=== PATIENT | male | born 1945 | race Caucasian/White ===

== ENCOUNTER 2018-11-24 15:10 | Observation (INO) | payer OTHER, BC ==
--- NOTE | 2018-11-24 15:53 | PDOC ---
History of Present Illness - General Chief Complaint: Pain Stated Complaint: BILATERAL KNEE PAIN Time Seen by Provider: 11/24/18 15:53 - History of Present Illness Initial Comments: 11/24/18 15:54 Mr. Phelps is a 72 yo male w/ pmh of HTN, IDDM, CHF (defibrillator placed ') , ischemic stroke '03, chronic LE cellulitis and swelling, who presents for evaluation of 3 week worsening of his chronic Left knee pain with additional weakness. Patient reports he is typically able to walk however today was unable to take his stairs at home; prompting his evaluation. The patient denies chest pain, shortness of breath, headache and dizziness. Denies fever, chills, nausea, vomit, diarrhea and constipation. Denies dysuria, frequency, urgency and hematuria. Past History - Past Medical History Allergies/Adverse Reactions: Allergies Allergy/AdvReac Type Severity Reaction Status Date / Time codeine [Codeine] Allergy Verified 04/01/15 12:36 Home Medications: Ambulatory Orders Amiodarone HCl [Cordarone -] 200 mg PO DAILY 04/01/15 Aspirin/Dipyridamole [Aggrenox -] 1 combo PO BID 04/01/15 Atorvastatin Ca [Lipitor -] 20 mg PO HS 04/01/15 Furosemide [Lasix -] 40 mg PO DAILY 04/01/15 Ranitidine HCl [Zantac] 150 mg PO DAILY 04/01/15 Tamsulosin HCl 0.4 mg PO DAILY 04/01/15 Ascorbic Acid [Vitamin C] 250 mg PO DAILY 05/18/16 Clopidogrel Bisulfate [Plavix -] 75 mg PO DAILY 05/18/16 Dutasteride [Avodart] 0.5 mg PO DAILY 05/18/16 Glipizide 5 mg PO BID 05/18/16 Insulin Glargine,Hum.rec.anlog [Lantus Solostar PEN (NF)] 0 units SQ BID Isosorbide Mononitrate [Imdur -] 90 mg PO DAILY 05/18/16 Losartan/Hydrochlorothiazide [Losartan-Hctz 100-25 mg Tab] 1 each PO DAILY 05/18 Metoprolol Tartrate 50 mg PO BID 05/18/16 Potassium Chloride 20 meq PO DAILY 05/18/16 Sitagliptin Phosphate [Januvia] 100 mg PO DAILY 05/18/16 Insulin Glargine,Hum.rec.anlog [Lantus] 0 unit SQ HS 11/24/18 Sodium Bicarbonate - 650 mg PO BID 11/24/18 Cancer: Yes (Skin Cancer 2004) Cardiac Disorders: Yes (Heart Failure, Defibrilator) CVA: Yes Diabetes: Yes HTN: Yes Hypercholesterolemia: Yes - Suicide/Smoking/Psychosocial Hx Smoking Status: No Smoking History: Never smoked Have you smoked in the past 12 months: No Number of Cigarettes Smoked Daily: 0 Information on smoking cessation initiated: No Hx Alcohol Use: No Drug/Substance Use Hx: No Substance Use Type: None Hx Substance Use Treatment: No Review of Systems - Review of Systems Comments:: 11/24/18 17:00 GENERAL/CONSTITUTIONAL: No fever or chills. No weakness. HEAD, EYES, EARS, NOSE AND THROAT: No change in vision. No ear pain or discharge. No sore throat. CARDIOVASCULAR: No chest pain or shortness of breath RESPIRATORY: No cough, wheezing, or hemoptysis. GASTROINTESTINAL: No nausea, vomiting, diarrhea or constipation. GENITOURINARY: No dysuria, frequency, or change in urination. MUSCULOSKELETAL: +Knee pain / weakness as described. SKIN: No rash NEUROLOGIC: No headache, vertigo, loss of consciousness, or change in strength/ sensation. ENDOCRINE: No increased thirst. No abnormal weight change HEMATOLOGIC/LYMPHATIC: No anemia, easy bleeding, or history of blood clots. ALLERGIC/IMMUNOLOGIC: No hives or skin allergy. *Physical Exam - Vital Signs Last Vital Signs Temp Pulse Resp BP Pulse Ox 97.7 F 64 20 177/65 H 97 11/24/18 15:15 11/24/18 15:15 11/24/18 15:15 11/24/18 15:15 11/24/18 15:15 - Physical Exam Comments: 11/24/18 17:01 GENERAL: +Patient obese. Awake, alert, and fully oriented, in no acute distress HEAD: No signs of trauma, normocephalic, atraumatic EYES: PERRLA, EOMI, sclera anicteric, conjunctiva clear ENT: Auricles normal inspection, hearing grossly normal, nares patent, oropharynx clear without exudates. Moist mucosa NECK: Normal ROM, supple, no lymphadenopathy, JVD, or masses LUNGS: No distress, speaks full sentences, clear to auscultation bilaterally HEART: Regular rate and rhythm, normal S1 and S2, no murmurs, rubs or gallops, peripheral pulses normal and equal bilaterally. ABDOMEN: Soft, nontender, normoactive bowel sounds. No guarding, no rebound. No masses EXTREMITIES: +2+ Pedal edema TRISH. Chronic cellulitis noted to LLE as well. Normal range of motion, no edema. No clubbing or cyanosis. NEUROLOGICAL: +Patient gait significant for limping 2/2 pain. Cranial nerves II through XII grossly intact. Normal speech, no focal sensorimotor deficits SKIN: Warm, Dry, normal turgor, no rashes or lesions noted. Moderate Sedation - Procedure Monitoring Vital Signs: Procedure Monitoring Vital Signs Temperature 97.7 F 11/24/18 15:15 Pulse Rate 64 11/24/18 15:15 Respiratory Rate 20 11/24/18 15:15 Blood Pressure 177/65 H 11/24/18 15:15 O2 Sat by Pulse Oximetry (%) 97 11/24/18 15:15 ED Treatment Course - LABORATORY CBC & Chemistry Diagram: 11/24/18 16:43 11/24/18 16:43 Medical Decision Making - Medical Decision Making 11/24/18 18:18 Mr. Phelps is a 72 yo male w/ pmh as described who presents for evaluation of worsening weakness / chronic leg pain. Patient evaluated with TRISH knee XR and labs as below (grossly wnl). Patient especially concerned as he is typically unable to ambulate and will not be able to walk up the stairs to get into his house at this time. Patient will likely be admitted for inability to ambulate / ortho consult. 11/24/18 19:09 Patient pending admission. Signed out to Dr. Camacho for further evaluation. Laboratory Results - last 24 hr 11/24/18 11/24/18 16:43 16:43 WBC 11.2 H RBC 5.57 Hgb 15.7 Hct 46.5 MCV 83.5 MCH 28.2 MCHC 33.7 RDW 15.1 Plt Count 216 D MPV 8.3 Absolute Neuts (auto) 7.9 Neutrophils % 70.1 Lymphocytes % 17.5 D Monocytes % 8.9 Eosinophils % 2.9 Basophils % 0.6 Nucleated RBC % 0 Sodium 139 Potassium 3.8 Chloride 101 Carbon Dioxide 33 H Anion Gap 5 L BUN 22 H Creatinine 1.4 H Creat Clearance w eGFR 49.96 Random Glucose 73 L Calcium 9.5 Total Bilirubin 0.6 AST 17 ALT 26 Alkaline Phosphatase 108 Total Protein 7.3 Albumin 3.8 *DC/Admit/Observation/Transfer Diagnosis at time of Disposition: Unable to ambulate - Referrals Referrals: Marlo Leos MD [Primary Care Provider] - - Patient Instructions - Post Discharge Activity
--- NOTE | 2018-11-24 15:57 | PDOC ---
Attending Attestation - Resident Resident Name: Kali Conroy - ED Attending Attestation I have performed the following: I have examined & evaluated the patient, The case was reviewed & discussed with the resident, I agree w/resident's findings & plan, Exceptions are as noted <BabarRekha - Last Filed: 11/24/18 15:57> - HPI HPI: 11/24/18 17:18 The patient is a 72 year old male with a significant past medical history of HTN , IDDM, CHF, defibrillator place 2010, CVA 2002, who presents to the emergency department today complaining of chronic bilateral knee pain. The patient states he has had lower extremity pain for the last 5 years and reports that hes experienced about four episodes in the last week where his legs gave out from under him. He explains his right leg pain is worse, but that the left is more swollen, and also notes some lower back pain. The patient denies chest pain, shortness of breath, headache and dizziness. Denies fever, chills, nausea, vomit, diarrhea and constipation. Denies dysuria, frequency, urgency and hematuria. Allergies: NKA Social history: None reported PCP: Dr. Coffey Neurologist: Dr. Cardenas - Physicial Exam PE: 11/24/18 17:11 GENERAL: The patient is in no acute distress. HEAD: Normal with no signs of trauma. EYES: PERRLA, EOMI, sclera anicteric, conjunctiva clear. ENT: Ears normal, nares patent, oropharynx clear without exudates. Moist mucous membranes. NECK: Normal range of motion, supple without lymphadenopathy, JVD, or masses. LUNGS: Breath sounds equal, clear to auscultation bilaterally. No wheezes, and no crackles. HEART:Regular rate and rhythm, normal S1 and S2 without murmur, rub or gallop. ABDOMEN: Soft, nontender, normoactive bowel sounds. No guarding, no rebound. No masses palpable. EXTREMITIES: (+) 4/5 hip flexion, knee extension. Sensation intact. NEUROLOGICAL: Cranial nerves II through XII grossly intact. Normal speech. No focal neurological deficits. MUSCULOSKELETAL: Back non-tender to palpation, no CVA tenderness SKIN: Warm, Dry, normal turgor, no rashes or lesions noted. <Dimple Khan - Last Filed: 11/24/18 17:18> Attestations - Attestations 11/24/18 17:18 Documentation prepared by Dimple Khan, acting as behavioral medical director for Rekha Eckert MD. <Dimple Khan - Last Filed: 11/24/18 17:18>
[2018-11-24 17:10] LABS: BASO % 0.6 % (0-2.0); EOS % 2.9 % (0-4.5); HEMATOCRIT 46.5 % (35.4-49); HEMOGLOBIN 15.7 GM/dL (11.7-16.9); LYMPH % 17.5 % (8-40); MCH 28.2 pg (25.7-33.7); MCHC 33.7 g/dl (32.0-35.9); MEAN CELL VOLUME 83.5 fl (80-96); MEAN PLT VOLUME 8.3 fl (7.5-11.1); MONO % 8.9 % (3.8-10.2); NEUT % 70.1 % (42.8-82.8); PLATELET COUNT 216 K/MM3 (134-434); RBC 5.57 M/mm3 (4.00-5.60); RDW 15.1 % (11.9-15.9); WHITE BLOOD COUNT 11.2 K/mm3 (4.0-10.0)
[2018-11-24 17:42] LABS: ALBUMIN 3.8 g/dl (3.4-5.0); ALK PHOS 108 U/L (45-117); ANION GAP 5 MMOL/L (8-16); BILIRUBIN,TOTAL 0.6 mg/dL (0.2-1); BLOOD UREA NITROGEN 22 mg/dL (7-18); CALCIUM 9.5 mg/dL (8.5-10.1); CHLORIDE 101 mmol/L (98-107); CO2 33 mmol/L (21-32); CREATININE 1.4 mg/dL (0.55-1.3); GLUCOSE,RANDOM 73 mg/dL (74-106); POTASSIUM 3.8 mmol/L (3.5-5.1); SGOT/AST 17 U/L (15-37); SGPT/ALT 26 U/L (13-61); SODIUM 139 mmol/L (136-145); TOT PROT 7.3 g/dl (6.4-8.2)
--- NOTE | 2018-11-24 20:58 | PDOC ---
*Physical Exam - Vital Signs Last Vital Signs Temp Pulse Resp BP Pulse Ox 97.7 F 64 20 177/65 H 97 11/24/18 15:15 11/24/18 15:15 11/24/18 15:15 11/24/18 15:15 11/24/18 15:15 ED Treatment Course - LABORATORY CBC & Chemistry Diagram: 11/24/18 16:43 11/24/18 16:43 - ADDITIONAL ORDERS Additional order review: Laboratory Results 11/24/18 16:43 Sodium 139 Potassium 3.8 Chloride 101 Carbon Dioxide 33 H Anion Gap 5 L BUN 22 H Creatinine 1.4 H Creat Clearance w eGFR 49.96 Random Glucose 73 L Calcium 9.5 Total Bilirubin 0.6 AST 17 ALT 26 Alkaline Phosphatase 108 Total Protein 7.3 Albumin 3.8 11/24/18 16:43 RBC 5.57 MCV 83.5 MCHC 33.7 RDW 15.1 MPV 8.3 Neutrophils % 70.1 Lymphocytes % 17.5 D Monocytes % 8.9 Eosinophils % 2.9 Basophils % 0.6 Medical Decision Making - Medical Decision Making 11/24/18 20:[address] Méndez for admission. *DC/Admit/Observation/Transfer Diagnosis at time of Disposition: Unable to ambulate - Discharge Dispostion Condition at time of disposition: Guarded Decision to Admit order: Yes - Referrals Referrals: Marlo Leos MD [Primary Care Provider] - - Patient Instructions - Post Discharge Activity
--- NOTE | 2018-11-24 22:03 | PN ---
Teaching Attending Note Name of Resident: Chiara Osborne ATTENDING PHYSICIAN STATEMENT I saw and evaluated the patient. I reviewed the resident's note and discussed the case with the resident. I agree with the resident's findings and plan as documented. SUBJECTIVE: Seen and examined; please see the resident note for further historical details. He has knee pain and has had stated mechanical falls at home for several weeks He had questionable syncope at home; he was sitting on his bed and fell backwards and was noted to be sweaty and lightheaded when it happened. He has Knee pain as well which is chronic. Seen by CV here in the past with Dr. Dhaliwal. 10 sys ROS done and negative aside from HPI PMH (HTN, DM, CHF with unknown EF s/p AICD 2010, CVA 2002) Medication list pending reconciliation (glipizide, lantus, lasix, januvia, losartan/HZTZ 5/12.5, Plavix 75, Metoprolol tartrate 50 BID, Amio 200, Isosorbide mononitrate, atorvastatin, aspirin, dypyridamole, tamsulosin, sodium bicarb, ranitidine) OBJECTIVE: VS, labs, imaging reviewed. Orthostatic VS neg NAD, AAO, resting comfortably in bed Chronic venous stasis changes LE, palpable pulses RRR s1/2 no mgr Lungs CTAB, w/ sym exp NT ND +BS CN2-12 wnl, no fnd ASSESSMENT AND PLAN: Presents with frequent falls, syncope 1) Syncope -Observation, telemetry, interrogating pacemaker and consulting cardiology. He appears to have had a similar episode 2013 which he was seen here by Dr. Dhaliwal -CT head reviewed; checking carotid dopplers and echo -Noted prior hx of neurocardiogenic syncope -OS VS negative per resident assessment -Fall precautions, PT 2) Knee Pain -PT consult, followup XR, PRN APAP, orhto consult 3) Hx Sustained VT s/p ICD for 2/2 prevention -Continue home amio, interrogating pacer 4) Hx Ischemic stroke -Doesn't appear to be an acute issue; no fnd. Continue home meds and monitor. 5) LE Venous Stasis changes -Check Arterial and Venous Duplex 6) Mild JHONY vs CKD -If Cr improved can restart lasix in the PM and watch. The last Cr was 2015 and given his history it would be likely his renal function somewhat worsened in the past 3 years. 7) Hx CHF (LV diastolic dysfunction documented) -Resume lasix in PM 8) DM -Home basal and SSI when inpt, hold PO meds 9) Obesity -Plastics Technician prior to DC; OP ANIBAL eval recommended.
[2018-11-24] MEDS ORDERED: LACTATED RINGERS SOLUTION 1,000 ML IV SCH (22:30)
--- NOTE | 2018-11-24 22:37 | HP ---
CHIEF COMPLAINT: frequent falls, knee pain PCP: Dr. Leos HISTORY OF PRESENT ILLNESS: 72 y/o M with PMH HTN, IDDM, CHF, hx sustained VT with ICD, [employer] 2010), ischemic stroke (2002), chronic LE cellulitis and edema, neurocardiogenic syncope, who presents to the ED c/o b/l lower extremity weakness and frequent falls over the last 3 weeks. As per pt, he suffered an ischemic stroke in 2002. Afterward, he completed PT, however cont'd to have weakness in his lower extremities, more specifically his knees. More recently, for the past three weeks he has had multiple episodes of syncope and falls (5x) . States that the last episode was yesterday AM, when he was sitting on the edge of the bed, he migue to stand and fell backwards back onto the bed. Denies LOC or head trauma. Prior to the episode, he endorses diaphoresis and lightheadedness. No chest pain or pressure, or visual changes. Has had four other episodes during this time, which have mostly been "mechanical" as per pt, where he feels as if his knees will "buckle out from under him." Denies HOOD, fever, chills, SOB, chest pain or pressure, or changes in urinary or bowel function. Of note, pt has seen Dr. Dhaliwal in past and was dx with likely neurocardiogenic syncope (2013). Pt lives at home with family and has had increased need for a wheelchair due to these recent episodes. ER course was notable for: (1) (2) (3) Recent Travel: denies PAST MEDICAL HISTORY: as above PAST SURGICAL HISTORY: "melanoma surgery" - on back. [facility] Social History: retired; used to work for [employer] for [employer] Smoking: denies Alcohol: denies Drugs: denies Family History: mother- cervical CA, father - "other type of CA" Allergies codeine [Codeine] Allergy (Verified 04/01/15 12:36) - couldn't remember medication at time HOME MEDICATIONS: Home Medications Medication Instructions Recorded Amiodarone HCl [Cordarone -] 200 mg PO DAILY 04/01/15 Aspirin/Dipyridamole [Aggrenox -] 1 combo PO BID 04/01/15 Atorvastatin Ca [Lipitor -] 20 mg PO HS 04/01/15 Furosemide [Lasix -] 40 mg PO DAILY 04/01/15 Ranitidine HCl [Zantac] 150 mg PO DAILY 04/01/15 Tamsulosin HCl 0.4 mg PO DAILY 04/01/15 Ascorbic Acid [Vitamin C] 250 mg PO DAILY 05/18/16 Clopidogrel Bisulfate [Plavix -] 75 mg PO DAILY 05/18/16 Dutasteride [Avodart] 0.5 mg PO DAILY 05/18/16 Glipizide 5 mg PO BID 05/18/16 Insulin Glargine,Hum.rec.anlog 0 units SQ BID 05/18/16 [Lantus Solostar PEN (NF)] Isosorbide Mononitrate [Imdur -] 90 mg PO DAILY 05/18/16 Metoprolol Tartrate 50 mg PO BID 05/18/16 Potassium Chloride 20 meq PO DAILY 05/18/16 Sitagliptin Phosphate [Januvia] 100 mg PO DAILY 05/18/16 Insulin Glargine,Hum.rec.anlog 0 unit SQ HS 11/24/18 [Lantus] Losartan 50Mg/Hctz 12.5MG [Hyzaar 1 tab PO DAILY 11/24/18 -] Sodium Bicarbonate - 650 mg PO BID 11/24/18 REVIEW OF SYSTEMS CONSTITUTIONAL: +weakness Absent: fever, chills, diaphoresis, generalized weakness, malaise, loss of appetite, weight change HEENT: Absent: rhinorrhea, nasal congestion, throat pain, throat swelling, difficulty swallowing, mouth swelling, ear pain, eye pain, visual changes CARDIOVASCULAR: Absent: chest pain, syncope, palpitations, irregular heart rate, lightheadedness , peripheral edema RESPIRATORY: Absent: cough, shortness of breath, dyspnea with exertion, orthopnea, wheezing, stridor, hemoptysis GASTROINTESTINAL: Absent: abdominal pain, abdominal distension, nausea, vomiting, diarrhea, constipation, melena, hematochezia GENITOURINARY: Absent: dysuria, frequency, urgency, hesitancy, hematuria, flank pain, genital pain MUSCULOSKELETAL: +knee pain Absent: myalgia, arthralgia, joint swelling, back pain, neck pain SKIN: Absent: rash, itching, pallor HEMATOLOGIC/IMMUNOLOGIC: Absent: easy bleeding, easy bruising, lymphadenopathy, frequent infections ENDOCRINE: Absent: unexplained weight gain, unexplained weight loss, heat intolerance, cold intolerance NEUROLOGIC: Absent: headache, focal weakness or paresthesias, dizziness, unsteady gait, seizure, mental status changes, bladder or bowel incontinence PSYCHIATRIC: Absent: anxiety, depression, suicidal or homicidal ideation, hallucinations. PHYSICAL EXAMINATION Vital Signs - 24 hr 11/24/18 15:15 Temperature 97.7 F Pulse Rate 64 Respiratory 20 Rate Blood Pressure 177/65 H O2 Sat by Pulse 97 Oximetry (%) GENERAL: Pleasant. sitting in wheelchair. Awake, alert, and fully oriented, in no acute distress. HEAD: Normal with no signs of trauma. EYES: Pupils equal, round and reactive to light, extraocular movements intact, sclera anicteric, conjunctiva clear. EARS, NOSE, THROAT: Ears normal, nares patent, oropharynx clear without exudates. Moist mucous membranes. NECK: Normal range of motion, supple without lymphadenopathy LUNGS: Breath sounds equal, clear to auscultation bilaterally. No wheezes, and no crackles. No accessory muscle use. HEART: Regular rate and rhythm, normal S1 and S2 without murmur, rub or gallop. ABDOMEN: Soft, obese, nontender, not distended, normoactive bowel sounds MUSCULOSKELETAL: 3/5 motor strength knee extension. unable to partake in hip flexion. 5/5 MS in UE. sensation intact. LOWER EXTREMITIES: 2+ pt pulses. +chronic ulcerative changes over shins. NEUROLOGICAL: Cranial nerves II-XII intact. difficulty with ambulation. can only stand for 1-2 minutes d/t knee pain. PSYCHIATRIC: Cooperative. Good eye contact. SKIN: Warm, dry, normal turgor Laboratory Results - last 24 hr 11/24/18 11/24/18 16:43 16:43 WBC 11.2 H RBC 5.57 Hgb 15.7 Hct 46.5 MCV 83.5 MCH 28.2 MCHC 33.7 RDW 15.1 Plt Count 216 D MPV 8.3 Absolute Neuts (auto) 7.9 Neutrophils % 70.1 Lymphocytes % 17.5 D Monocytes % 8.9 Eosinophils % 2.9 Basophils % 0.6 Nucleated RBC % 0 Sodium 139 Potassium 3.8 Chloride 101 Carbon Dioxide 33 H Anion Gap 5 L BUN 22 H Creatinine 1.4 H Creat Clearance w eGFR 49.96 Random Glucose 73 L Calcium 9.5 Total Bilirubin 0.6 AST 17 ALT 26 Alkaline Phosphatase 108 Total Protein 7.3 Albumin 3.8 Knee XR: results pending spine lumbosacral imaging: pending EKG: sinus with PVC's. rate 74bpm, [place] 204ms. Qtc 501ms orthostatics: (-) ASSESSMENT/PLAN: 72 y/o M with PMH HTN, IDDM, CHF, hx sustained VT with ICD, [employer] 2010), ischemic stroke (2002), chronic LE cellulitis and edema, neurocardiogenic syncope, who presents to the ED c/o b/l lower extremity weakness and frequent falls over the last 3 weeks. #Possible neurocardiogenic syncope -similar to episode in 2014, has been seen by cardiology - neurocardiogenic syncope -will need ICD interrogation, [employer] to check for any new events -will also need med reconciliation to determine whether polypharmacy exacerbating sx -f/u ECHO, carotid duplex -orthostatics (-) #chronic LE, L knee weakness -with joint space narrowing on imaging, without dislocation or fx - my read. await official read (knee XR) -f/u spine imaging -PT -Ortho consult: Dr. Del Valle #LE edema, r/o DVT -has chronically however f/u b/l duplex #leukocytosis -likely reactive 2/2 falls. no acute infiltrates on CXR or symptoms -however f/u official read. no other likely sources infection #?CAD, hx sustained VT, ICD -needs ICD interrogation -c/w aggrenox, plavix. unclear why pt is on plavix as no verbalized hx of [place] or stent -c/w imdur, statin #hx ischemic stroke (2002) -c/w lipitor #JHONY -can give gentle IVF (42 cc/hr) if needed -will hold for now as pt with CHF though not in exac. reassess in AM #HTN- uncontrolled -likely 2/2 pain -c/w metoprolol tartate, losartan-HCTZ -may need to be adjusted 2/2 polypharmacy #IDDM -cont ISS, BGM, ACHS -on lantus 65mg qHS, however last BG 73 so will hold for now. can restart tomorrow #CHF -c/w lasix 40mg BID. note also on losartan-HCTZ -currently not in exacerbation -strict i/o, daily weights, Na 2g controlled -c/w KCl replenishment #F/E/N no IVF continue to follow lytes sodium controlled, diabetic diet #PPX on aggrenox, SCD's #Dispo med surg obs Visit type - Emergency Visit Emergency Visit: Yes ED Registration Date: 11/24/18 Care time: The patient presented to the Emergency Department on the above date and was hospitalized for further evaluation of their emergent condition. - New Patient This patient is new to me today: Yes Date on this admission: 11/25/18 - Critical Care Critical Care patient: No
[2018-11-25] MEDS ORDERED: METOPROLOL TARTRATE 50 MG TABLET (FP) ONE (00:44)
[2018-11-25] MEDS: METOPROLOL TARTRATE 50 MG TABLET (FP) PO SCH ×3 (00:45→21:38)
[2018-11-25 03:46] VITALS: BMI 42.2
[2018-11-25] MEDS ORDERED: INSULIN (NOVOLOG) ASPART 100 UNITS/ML 10ML VIAL ONE (06:02)
[2018-11-25] MEDS: INSULIN SLIDING SCALE (NOVOLOG) 1 VIAL SQ SCH ×4 (06:16→21:38)
[2018-11-25 07:38] LABS: EOS % 3.1 % (0-4.5); HEMATOCRIT 40.5 % (35.4-49); HEMOGLOBIN 13.7 GM/dL (11.7-16.9); LYMPH % 20.5 % (8-40); MCHC 33.9 g/dl (32.0-35.9); MEAN CELL VOLUME 82.8 fl (80-96); MEAN PLT VOLUME 8.6 fl (7.5-11.1); MONO % 10.4 % (3.8-10.2); PLATELET COUNT 193 K/MM3 (134-434); WHITE BLOOD COUNT 7.8 K/mm3 (4.0-10.0)
[2018-11-25 07:58] LABS: INR 1.23 (0.83-1.09); PROTHROMBIN TIME (PATIENT) 14.5 SEC (9.7-13.0)
[2018-11-25] MEDS: TAMSULOSIN HCL 0.4 MG CAP PO SCH (08:05)
[2018-11-25 08:11] LABS: ANION GAP 6 MMOL/L (8-16); BLOOD UREA NITROGEN 21 mg/dL (7-18); CALCIUM 8.6 mg/dL (8.5-10.1); CHLORIDE 105 mmol/L (98-107); CO2 28 mmol/L (21-32); CREATININE 1.2 mg/dL (0.55-1.3); GLUCOSE,RANDOM 95 mg/dL (74-106); MAGNESIUM 2.2 mg/dL (1.8-2.4); PHOSPHOROUS 3.6 mg/dL (2.5-4.9); POTASSIUM 3.6 mmol/L (3.5-5.1); SODIUM 139 mmol/L (136-145)
--- NOTE | 2018-11-25 08:54 | PN ---
Progress Note (short form) - Note Progress Note: 72 y/o obese male with history of HTN, IDDM, CHF, ischemic stroke (2002), chronic LE cellulitis and edema, neurocardiogenic syncope here for b/l lower extremity weakness and frequent falls over the last 3 weeks, both vasovagal and mechanical. He notes several episodes of b/l knees "giving out" for 5+ years, becoming more frequent over the past 2 years. Denies any tauma or injury prior to onset of his symptoms. He notes constant diffuse knee pain throughout the day. As per patient, he was last evaluated for his knee pain 10 years ago. Last Vital Signs Temp Pulse Resp BP Pulse Ox 98.2 F 63 20 155/69 98 11/25/18 03:33 11/25/18 03:33 11/25/18 03:33 11/25/18 03:33 11/25/18 03:33 PE: B/L LE B/L chronic cellulitic changes No deformity Tender medial more than lateral joint lines ROM 10-100 4/5 strength B/L LE 5/5 strength B/L UE Nuerovascularly intact Cap refill intact Abnormal Lab Results 11/24/18 11/24/18 11/25/18 16:43 16:43 06:00 WBC 11.2 H Monocytes % 10.4 H PT with INR INR Carbon Dioxide 33 H Anion Gap 5 L BUN 22 H Creatinine 1.4 H Random Glucose 73 L 11/25/18 11/25/18 06:00 06:00 WBC Monocytes % PT with INR 14.50 H INR 1.23 H Carbon Dioxide Anion Gap 6 L BUN 21 H Creatinine Random Glucose A: B/L knee pain P: XR images show severe degenerative changes of R knee and moderate to severe of L knee Patient's symptoms and XR are most consistent with B/L 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
[2018-11-25] MEDS: SODIUM BICARBONATE 650 MG TABLET PO SCH ×2 (09:44→21:38)
[2018-11-25] MEDS: RANITIDINE HCL 150 MG TABLET (FP) PO SCH (09:44)
[2018-11-25] MEDS: ASPIRIN/DIPYRIDAMOLE 25 MG/200 MG CAPSULE (FP) PO SCH ×2 (09:44→22:54)
[2018-11-25] MEDS: CLOPIDOGREL BISULFATE 75 MG TABLET (FP) PO SCH (09:44)
[2018-11-25] MEDS: ISOSORBIDE MONONITRATE 30 MG TAB.SR.24H (FP) PO SCH (09:45)
[2018-11-25] MEDS: DUTASTERIDE 0.5 MG CAP (FP) PO SCH (09:45)
[2018-11-25] MEDS: AMIODARONE HCL 200 MG TABLET (FP) PO SCH (09:45)
[2018-11-25] MEDS: LOSARTAN 50MG/HCTZ 12.5MG 1 TAB (FP) PO SCH (09:45)
[2018-11-25] MEDS: POTASSIUM CHLORIDE TABS 10 MEQ TABLET.ER (FP) PO SCH (09:45)
[2018-11-25] MEDS ORDERED: FUROSEMIDE 40 MG TABLET (FP) PO SCH ×2 (10:00)
[2018-11-25] MEDS ORDERED: PATIENT'S OWN MEDICATION (NON-FORMULARY) (Losartan/Hydrochlorothiazide [Losartan-Hctz 100- PO SCH (10:00)
--- NOTE | 2018-11-25 11:03 | PN ---
Progress Note, Physician Chief Complaint: Pt sitting in chair in no acute distress. Reports feeling well today. He reports episodes at home where he would sit on the side of the bed and fall back when standing as his legs gave out. yesterday, he felt dizzy and diaphoretic. Denies any chest pain, sob, n/v/d - Current Medication List Current Medications: Active Medications Amiodarone HCl (Cordarone -) 200 mg PO DAILY [facility] Last Admin: 11/25/18 09:45 Dose: 200 mg Atorvastatin Calcium (Lipitor -) 20 mg PO [facility] Clopidogrel Bisulfate (Plavix -) 75 mg PO DAILY [facility] Last Admin: 11/25/18 09:44 Dose: 75 mg Dipyridamole/Aspirin (Aggrenox -) 1 combo PO BID [facility] Last Admin: 11/25/18 09:44 Dose: 1 combo Dutasteride (Avodart -) 0.5 mg PO DAILY [facility] Last Admin: 11/25/18 09:45 Dose: 0.5 mg Furosemide (Lasix -) 40 mg PO BID [facility] Last Admin: 11/25/18 09:44 Dose: 40 mg HCTZ/Losartan Potassium (Hyzaar -) 1 tab PO DAILY [facility] Last Admin: 11/25/18 09:45 Dose: 1 tab Insulin Aspart (Novolog Vial Sliding Scale -) 1 vial SQ [facility]; Protocol Last Admin: 11/25/18 06:16 Dose: Not Given Isosorbide Mononitrate (Imdur -) 90 mg PO DAILY [facility] Last Admin: 11/25/18 09:45 Dose: 90 mg Metoprolol Tartrate (Lopressor -) 50 mg PO BID [facility] Last Admin: 11/25/18 09:45 Dose: 50 mg Potassium Chloride (K-Dur -) 20 meq PO DAILY [facility] Last Admin: 11/25/18 09:45 Dose: 20 meq Ranitidine HCl (Zantac -) 150 mg PO DAILY [facility] Last Admin: 11/25/18 09:44 Dose: 150 mg Sodium Bicarbonate (Sodium Bicarbonate -) 650 mg PO BID [facility] Last Admin: 11/25/18 09:44 Dose: 650 mg Tamsulosin HCl (Flomax -) 0.4 mg PO DAILY@0830 [facility] Last Admin: 11/25/18 08:05 Dose: 0.4 mg - Objective Vital Signs: Vital Signs Temperature 98.2 F 11/25/18 03:33 Pulse Rate 63 11/25/18 03:33 Respiratory Rate 20 11/25/18 03:33 Blood Pressure 155/69 11/25/18 03:33 O2 Sat by Pulse Oximetry (%) 98 11/25/18 03:33 Constitutional: Yes: Well Nourished, No Distress, Calm, Obese Cardiovascular: Yes: Regular Rate and Rhythm Respiratory: Yes: WNL, Regular, CTA Bilaterally. No: Accessory Muscle Use, SOB , Tachypnea, Wheezes Gastrointestinal: Yes: WNL, Normal Bowel Sounds, Soft, Abdomen, Obese. No: Distention, Tenderness Genitourinary: Yes: WNL Edema: Yes Edema: LLE: Trace, RLE: Trace Integumentary: Yes: Venous Stasis Changes Neurological: Yes: WNL, Alert, Oriented Psychiatric: Yes: WNL, Alert, Oriented Labs: CBC, BMP 11/25/18 06:00 11/25/18 06:00 INR, PTT INR 1.23 (0.83-1.09) H 11/25/18 06:00 Problem List - Problems (1) Fall Assessment/Plan: suspect 2/2 gait instability, severe oa of b/l knees all imaging w/out acute fx b/l duplex neg for DVT evaluated by ortho- recommend outpt follow up PT eval- ambulated 30ft, may benefit from RW Code(s): W19.XXXA - UNSPECIFIED FALL, INITIAL ENCOUNTER Qualifiers: Encounter type: initial encounter Qualified Code(s): W19.XXXA - Unspecified fall, initial encounter (2) Pre-syncope Assessment/Plan: multifactorial suspect this is possibly from his gait instability/knee oa possible vasovagal, cr was elevated at admission- lasix stopped per cardiology does not suspect neuro/cardiac etiology echo/icd interrogation pending cardiology following Code(s): R55 - SYNCOPE AND COLLAPSE (3) CAD (coronary artery disease) Assessment/Plan: no acute ACS cardiology following Code(s): I25.10 - ATHSCL HEART DISEASE OF [place] CORONARY ARTERY W/O ANG PCTRS Qualifiers: [place] vs. transplanted heart: [place] heart Associated angina: without angina (4) HTN (hypertension) Assessment/Plan: controlled continue home meds Code(s): I10 - ESSENTIAL (PRIMARY) HYPERTENSION Qualifiers: Hypertension type: essential hypertension Qualified Code(s): I10 - Essential (primary) hypertension (5) HLD (hyperlipidemia) Assessment/Plan: stable continue statin Code(s): E78.5 - HYPERLIPIDEMIA, UNSPECIFIED Qualifiers: Hyperlipidemia type: pure hypercholesterolemia Qualified Code(s): E78.00 - Pure hypercholesterolemia, unspecified; E78.0 - Pure hypercholesterolemia (6) Diabetes Assessment/Plan: controlled bgm, sliding scale lantus on hold diabetic diet Code(s): E11.9 - TYPE 2 DIABETES MELLITUS WITHOUT COMPLICATIONS Qualifiers: Diabetes mellitus type: type 2 Diabetes mellitus superintendent container terminal insulin use: with superintendent container terminal use Diabetes mellitus complication status: without complication Qualified Code(s): E11.9 - Type 2 diabetes mellitus without complications; Z79.4 - truck terminal manager (current) use of insulin (7) Stasis dermatitis of both legs Assessment/Plan: chronic acewrap lasix d/c'd per cardiology Code(s): I87.2 - VENOUS INSUFFICIENCY (CHRONIC) (PERIPHERAL) (8) History of CVA (cerebrovascular accident) Assessment/Plan: chronic , 2002 Code(s): Z86.73 - PRSNL HX OF TIA (TIA), AND CEREB INFRC W/O RESID DEFICITS Assessment/Plan Dispo: home w/ VNS. pending echo, icd interrogation
--- NOTE | 2018-11-25 11:06 | CON.CARD ---
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 As per pt, he suffered an ischemic stroke in 2002. Afterward, he completed PT, however cont'd to have weakness in his lower extremities, more specifically his knees. More recently, for the past three weeks he has had multiple episodes of syncope and falls (5x). States that the last episode was yesterday AM, when he was sitting on the edge of the bed, he migue to stand and fell backwards back onto the bed. Denies LOC or head trauma. Prior to the episode, he endorses diaphoresis, flushing and lightheadedness. No chest pain or pressure, palpitations or visual changes. Has had four other episodes during this time, which have mostly been "mechanical" as per pt, where he feels as if his knees will "buckle out from under him." Denies HOOD, fever, chills, SOB, chest pain or pressure, or changes in urinary or bowel function. Last seen in office 06/03/2018. - History Source History Provided By: Patient Limitations to Obtaining History: No Limitations - Alcohol/Substance Use Hx Alcohol Use: No - Smoking History Smoking history: Never smoked Have you smoked in the past 12 months: No Aproximately how many cigarettes per day: 0 Home Medications - Allergies Allergies/Adverse Reactions: Allergies Allergy/AdvReac Type Severity Reaction Status Date / Time codeine [Codeine] Allergy Verified 04/01/15 12:36 - Home Medications Home Medications: Ambulatory Orders Amiodarone HCl [Cordarone -] 200 mg PO DAILY 04/01/15 Aspirin/Dipyridamole [Aggrenox -] 1 combo PO BID 04/01/15 Atorvastatin Ca [Lipitor -] 20 mg PO HS 04/01/15 Furosemide [Lasix -] 80 mg PO DAILY 06/15/15 Ranitidine HCl [Zantac] 150 mg PO BID 04/01/15 Tamsulosin HCl 0.4 mg PO DAILY 04/01/15 Ascorbic Acid [Vitamin C] 1,000 mg PO DAILY 05/18/16 Clopidogrel Bisulfate [Plavix -] 75 mg PO DAILY 05/18/16 Dutasteride [Avodart] 0.5 mg PO DAILY 05/18/16 Glipizide 5 mg PO BID 05/18/16 Insulin Glargine,Hum.rec.anlog [Lantus Solostar PEN (NF)] 0 units SQ BID Isosorbide Mononitrate [Imdur -] 90 mg PO DAILY 05/18/16 Metoprolol Tartrate 50 mg PO BID 05/18/16 Potassium Chloride 20 meq PO DAILY 05/18/16 Sitagliptin Phosphate [Januvia] 100 mg PO DAILY 05/18/16 Insulin Glargine,Hum.rec.anlog [Lantus] 60 unit SQ HS 11/24/18 Losartan 50Mg/Hctz 12.5MG [Hyzaar -] 1 tab PO DAILY 11/24/18 Sodium Bicarbonate - 650 mg PO BID 11/24/18 Vitamin D - 50,000 cap PO DAILY 11/25/18 Review of Systems - Review of Systems Constitutional: reports: Weakness Neurological: reports: Dizziness, Syncope, Unsteady Gait Vital Signs: Vital Signs Temperature 98.2 F 11/25/18 03:33 Pulse Rate 63 11/25/18 03:33 Respiratory Rate 20 11/25/18 03:33 Blood Pressure 155/69 11/25/18 03:33 O2 Sat by Pulse Oximetry (%) 98 11/25/18 03:33 Constitutional: Yes: No Distress Neck: Yes: Supple Respiratory: Yes: Regular, Diminished Gastrointestinal: Yes: Normal Bowel Sounds, Soft, Abdomen, Obese Cardiovascular: Yes: Regular Rate and Rhythm JVD: No Carotid Bruit: No Heart Sounds: Yes: S1, S2 Edema: Yes Edema: LLE: 2+, RLE: 2+ Integumentary: Yes: Venous Stasis Changes - Other Data Labs, Other Data: CBC, BMP 11/25/18 06:00 11/25/18 06:00 INR, PTT INR 1.23 (0.83-1.09) H 11/25/18 06:00 Troponin, BNP 11/25/18 01:35 Troponin I 0.02 Troponin, BNP 11/25/18 01:35 Troponin I 0.02 Ejection Fraction %: LVEF < 40 % Imaging - Results Chest X-ray: Report Reviewed (NAD) Ultrasound: Report Reviewed (No DVT bilaterally) Problem List - Problems (1) Gait instability Code(s): R26.81 - UNSTEADINESS ON FEET (2) Degenerative joint disease of knee Code(s): M17.10 - UNILATERAL PRIMARY OSTEOARTHRITIS, UNSPECIFIED KNEE Qualifiers: Osteoarthritis type: primary Laterality: bilateral Qualified Code(s): M17.0 - Bilateral primary osteoarthritis of knee (3) ICD (implantable cardioverter-defibrillator) in place Code(s): Z95.810 - PRESENCE OF AUTOMATIC (IMPLANTABLE) CARDIAC DEFIBRILLATOR (4) Hyperlipidemia associated with type 2 diabetes mellitus Code(s): E11.69 - TYPE 2 DIABETES MELLITUS WITH OTHER SPECIFIED COMPLICATION; E78.5 - HYPERLIPIDEMIA, UNSPECIFIED (5) Nonobstructive atherosclerosis of coronary artery Code(s): I25.10 - ATHSCL HEART DISEASE OF [place] CORONARY ARTERY W/O ANG PCTRS (7) Cerebrovascular disease Code(s): I67.9 - CEREBROVASCULAR DISEASE, UNSPECIFIED Assessment/Plan 1. 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 Neurocardiogenic syncope, negative orthostasis 3. Hypertensive heart disease 4. Insulin-dependent Type 2 DM 5. Sustained VT s/p ICD [employer] 2010 6. Cerebrovascular disease h/o ischemic stroke 2002 7. Chronic LE cellulitis and edema 8. Systolic dysfunction P:1. F/u ECHO, carotid duplex results 2. Compression therapy with ETELVINA wraps since ruled out DVT, mositurizers 3. ICD interrogation 4. Gait training, PT with walker assistance 5. D/c Plavix, no indication, continue amio 200 qd, Aggrenox bid, Lipitor 20 qhs , Imdur 90 qd, Lopressor 50 bid, Hyzaar 50/12.5 qd, d/c Lasix for now 6. Thank you for consultative opportunity
[2018-11-25] MEDS ORDERED: POTASSIUM CHLORIDE TABS 20 MEQ TABLET.ER (FP) PO ONE (12:00)
--- NOTE | 2018-11-25 13:25 | EKG ---
Test Reason : Blood Pressure : / mmHG Vent. Rate : 061 BPM Atrial Rate : 061 BPM P-R Int : 216 ms QRS Dur : 100 ms QT Int : 474 ms P-R-T Axes : 064 016 -05 degrees QTc Int : 477 ms SINUS RHYTHM WITH 1ST DEGREE A-V BLOCK MINIMAL VOLTAGE CRITERIA FOR LVH, MAY BE NORMAL VARIANT BORDERLINE ECG WHEN COMPARED WITH ECG OF 24-NOV-2018 18:53, PREMATURE VENTRICULAR COMPLEXES ARE NO LONGER PRESENT BORDERLINE CRITERIA FOR ANTEROSEPTAL INFARCT ARE NO LONGER PRESENT Confirmed by CHRISTINA STEVENSON, NED ([id number]) on 11/25/2018 1:25:26 PM Referred By: Confirmed By:NED VASQUEZ MD
--- NOTE | 2018-11-25 15:26 | ECHO ---
Name: ORVILLE, ALEJANDRO Exam:Adult Echocardiogram Study Date: 11/25/2018 02:19 PM Age: 72 yrs Reason For Study: SYNCOPE Height: 70 in Weight: 294 lb BSA: 2.5 m2 Doppler Measurements & Calculations MV E max kyle: 79.0 cm/sec Ao V2 max: 140.4 cm/sec MV A max kyle: 99.2 cm/sec Ao max P.9 mmHg MV E/A: 0.80 Med Peak E' Kyle: 4.2 cm/sec Med E/e': 19.0 Lat Peak E' Kyle: 5.5 cm/sec Lat E/e': 14.4 Procedure The study was technically difficult with many images being suboptimal in quality. Left Ventricle An intracavitary gradient is present. The intracavitary gradient measures between 32-47mmHg (with Lynda ke). Left ventricular systolic function is grossly normal. Regional wall motion abnormalities cannot be ex cluded due to limited visualization. Right Ventricle The right ventricle is not well visualized. Atria Normal left and right atrial size and function. Mitral Valve There is mild mitral annular calcification. There is no mitral valve stenosis. There is no mitral regurgitation noted. Tricuspid Valve The tricuspid valve is not well visualized, but is grossly normal. No tricuspid regurgitation. Aortic Valve The aortic valve opens well. There is mild aortic sclerosis.;. No hemodynamically significant valvula r aortic stenosis. No aortic regurgitation is present. Pulmonic Valve The pulmonic valve is not well seen, but is grossly normal. There is no pulmonic valvular stenosis. T here is no pulmonic valvular regurgitation. Great Vessels The aortic root is normal size. Pericardium/Pleura There is no pericardial effusion. Interpretation Summary The study was technically difficult with many images being suboptimal in quality. Regional wall motion abnormalities cannot be excluded due to limited visualization. Left ventricular systolic function is grossly normal. An intracavitary gradient is present. The intracavitary gradient measures between 32-47mmHg (with Valsalva). The right ventricle is not well visualized. There is mild mitral annular calcification. The aortic valve opens well. There is mild aortic sclerosis.; There is no pericardial effusion. MD Harris *Venessa 11/25/2018 03:26 PM
[2018-11-25] MEDS: ATORVASTATIN CA 20 MG TABLET (FP) PO SCH (21:37)
[2018-11-25] MEDS ORDERED: PT OWN MED DRAWER 7, Y5N ONE ×2 (21:46→22:33)
[2018-11-26] MEDS: INSULIN SLIDING SCALE (NOVOLOG) 1 VIAL SQ SCH ×4 (06:26→22:56)
--- NOTE | 2018-11-26 06:54 | PN ---
Progress Note (short form) - Note Progress Note: Chief Complaint: Events noted, notes reviewed, denies any chest discomfort, denies any dyspnea History of Present Illness: Seen and examined on telemetry. Events noted, notes reviewed, denies any chest discomfort, denies any dyspnea Echocardiography Study was technically suboptimal, revealed normal LV systolic function, intra-cavitory gradient, mitral annular calcification and aortic valve sclerosis. Current Medications: Current Medications Amiodarone HCl (Cordarone -) 200 mg PO DAILY [facility] Last Admin: 11/26/18 09:19 Dose: 200 mg Amlodipine Besylate (Norvasc -) 5 mg PO DAILY [facility] Last Admin: 11/26/18 09:16 Dose: 5 mg Atorvastatin Calcium (Lipitor -) 20 mg PO HS [facility] Last Admin: 11/25/18 21:37 Dose: 20 mg Clopidogrel Bisulfate (Plavix -) 75 mg PO DAILY [facility] Last Admin: 11/26/18 09:12 Dose: 75 mg Dipyridamole/Aspirin (Aggrenox -) 1 combo PO BID [facility] Last Admin: 11/26/18 09:12 Dose: 1 combo Dutasteride (Avodart -) 0.5 mg PO DAILY [facility] Last Admin: 11/26/18 09:13 Dose: 0.5 mg HCTZ/Losartan Potassium (Hyzaar -) 1 tab PO DAILY [facility] Last Admin: 11/26/18 09:12 Dose: 1 tab Insulin Aspart (Novolog Vial Sliding Scale -) 1 vial SQ [facility]; Protocol Last Admin: 11/26/18 11:45 Dose: Not Given Isosorbide Mononitrate (Imdur -) 90 mg PO DAILY [facility] Last Admin: 11/26/18 09:12 Dose: 90 mg Metoprolol Tartrate (Lopressor -) 50 mg PO BID [facility] Last Admin: 11/26/18 09:12 Dose: 50 mg Potassium Chloride (K-Dur -) 20 meq PO DAILY [facility] Last Admin: 11/26/18 09:20 Dose: 20 meq Ranitidine HCl (Zantac -) 150 mg PO DAILY [facility] Last Admin: 11/26/18 09:12 Dose: 150 mg Sodium Bicarbonate (Sodium Bicarbonate -) 650 mg PO BID [facility] Last Admin: 11/26/18 09:12 Dose: 650 mg Tamsulosin HCl (Flomax -) 0.4 mg PO DAILY@0830 [facility] Last Admin: 11/26/18 09:12 Dose: 0.4 mg - Objective Vital Signs: Last Vital Signs Temp Pulse Resp BP Pulse Ox 98.2 F 70 18 153/78 95 11/26/18 09:00 11/26/18 09:00 11/26/18 09:00 11/26/18 09:00 11/26/18 08:50 Intake & Output 11/23/18 11/24/18 11/25/18 11/26/18 23:59 23:59 23:59 23:59 Intake Total 410 200 Output Total 1300 600 Balance -890 -400 Weight 300 lb 293 lb 3 oz 294 lb 1 oz Neck: Supple Negative JVD No bruit Respiratory: Diminished breath sounds at the bases Cardiovascular: S1, S2 Regular Rate Rhythm Gastrointestinal: Soft Benign Normal Bowel Sounds Ext: Trace Ankle Edema Labs: CBC, BMP 11/25/18 06:00 11/26/18 06:00 Assessment/Plan ASSESSMENT: 1. Gait disturbance/instability with frequent falls 2. Neurocardiogenic syncope, negative with orthostasis 3. History of systolic left ventricular dysfunction, with no clinical evidence of congestive heart failure 4. History of sustained ventricular tachycardia post ICD implant 5. Hypertensive heart disease 6. Insulin-dependent diabetes mellitus 7. History of cerebrovascular disease/ischemic stroke 8. Chronic lower extremity edema with recurrent cellulitis PLAN: 1. As outlined in the initial consult consider Plavix therapy discontinuation, no clear indications 2. Continue Amiodarone 3. Continue Lopressor 4. Continue Hyzaar 5. Continue Imdur 6. Continue Lipitor 7. Continue Aggrenox 8. Initiate PT/physical therapy Maggie Rojas MD
[2018-11-26 08:26] LABS: ANION GAP 6 MMOL/L (8-16); BLOOD UREA NITROGEN 29 mg/dL (7-18); CALCIUM 8.7 mg/dL (8.5-10.1); CHLORIDE 104 mmol/L (98-107); CO2 28 mmol/L (21-32); CREATININE 1.5 mg/dL (0.55-1.3); GLUCOSE,RANDOM 128 mg/dL (74-106); POTASSIUM 4.2 mmol/L (3.5-5.1); SODIUM 138 mmol/L (136-145)
[2018-11-26] MEDS: CLOPIDOGREL BISULFATE 75 MG TABLET (FP) PO SCH (09:12)
[2018-11-26] MEDS: ISOSORBIDE MONONITRATE 30 MG TAB.SR.24H (FP) PO SCH (09:12)
[2018-11-26] MEDS: TAMSULOSIN HCL 0.4 MG CAP PO SCH (09:12)
[2018-11-26] MEDS: METOPROLOL TARTRATE 50 MG TABLET (FP) PO SCH ×2 (09:12→22:56)
[2018-11-26] MEDS: RANITIDINE HCL 150 MG TABLET (FP) PO SCH (09:12)
[2018-11-26] MEDS: ASPIRIN/DIPYRIDAMOLE 25 MG/200 MG CAPSULE (FP) PO SCH ×2 (09:12→22:56)
[2018-11-26] MEDS: SODIUM BICARBONATE 650 MG TABLET PO SCH ×2 (09:12→22:56)
[2018-11-26] MEDS: LOSARTAN 50MG/HCTZ 12.5MG 1 TAB (FP) PO SCH (09:12)
[2018-11-26] MEDS: DUTASTERIDE 0.5 MG CAP (FP) PO SCH (09:13)
[2018-11-26] MEDS: amLODIPine BESYLATE 5 MG TABLET (FP) PO SCH (09:16)
[2018-11-26] MEDS: AMIODARONE HCL 200 MG TABLET (FP) PO SCH (09:19)
[2018-11-26] MEDS: POTASSIUM CHLORIDE TABS 10 MEQ TABLET.ER (FP) PO SCH (09:20)
[2018-11-26] MEDS ORDERED: SODIUM CHLORIDE 1,000 ML IV SCH (14:00)
--- NOTE | 2018-11-26 18:31 | PN ---
Progress Note, Physician Chief Complaint: Mr Ding still with some dizziness. No cp, sob, n/v. - Current Medication List Current Medications: Active Medications Amiodarone HCl (Cordarone -) 200 mg PO DAILY [facility] Last Admin: 11/26/18 09:19 Dose: 200 mg Amlodipine Besylate (Norvasc -) 5 mg PO DAILY [facility] Last Admin: 11/26/18 09:16 Dose: 5 mg Atorvastatin Calcium (Lipitor -) 20 mg PO HS [facility] Last Admin: 11/25/18 21:37 Dose: 20 mg Dipyridamole/Aspirin (Aggrenox -) 1 combo PO BID [facility] Last Admin: 11/26/18 09:12 Dose: 1 combo Dutasteride (Avodart -) 0.5 mg PO DAILY [facility] Last Admin: 11/26/18 09:13 Dose: 0.5 mg HCTZ/Losartan Potassium (Hyzaar -) 1 tab PO DAILY [facility] Last Admin: 11/26/18 09:12 Dose: 1 tab Sodium Chloride (Normal Saline -) 1,000 mls @ 50 mls/hr IV ASDIR [facility] Stop: 11/27/18 13:53 Last Admin: 11/26/18 14:45 Dose: 50 mls/hr Insulin Aspart (Novolog Vial Sliding Scale -) 1 vial SQ [facility]; Protocol Last Admin: 11/26/18 16:35 Dose: Not Given Isosorbide Mononitrate (Imdur -) 90 mg PO DAILY [facility] Last Admin: 11/26/18 09:12 Dose: 90 mg Metoprolol Tartrate (Lopressor -) 50 mg PO BID [facility] Last Admin: 11/26/18 09:12 Dose: 50 mg Potassium Chloride (K-Dur -) 20 meq PO DAILY [facility] Last Admin: 11/26/18 09:20 Dose: 20 meq Ranitidine HCl (Zantac -) 150 mg PO DAILY [facility] Last Admin: 11/26/18 09:12 Dose: 150 mg Sodium Bicarbonate (Sodium Bicarbonate -) 650 mg PO BID [facility] Last Admin: 11/26/18 09:12 Dose: 650 mg Tamsulosin HCl (Flomax -) 0.4 mg PO DAILY@0830 [facility] Last Admin: 11/26/18 09:12 Dose: 0.4 mg - Objective Vital Signs: Vital Signs Temperature 36.8 C 11/26/18 09:00 Pulse Rate 70 02/09/19 09:00 Respiratory Rate 18 11/26/18 09:00 Blood Pressure 153/78 11/26/18 09:00 O2 Sat by Pulse Oximetry (%) 95 11/26/18 08:50 Constitutional: Yes: No Distress, Calm, Obese Cardiovascular: Yes: Regular Rate and Rhythm. No: Gallop, Murmur, Rub Respiratory: Yes: Regular, CTA Bilaterally. No: Rales, Rhonchi, Wheezes Gastrointestinal: Yes: Normal Bowel Sounds, Soft. No: Distention, Tenderness Extremities: Yes: WNL Edema: No Labs: CBC, BMP 11/25/18 06:00 11/26/18 06:00 INR, PTT INR 1.23 (0.83-1.09) H 11/25/18 06:00 Assessment/Plan (1) Fall Assessment/Plan: -suspect 2/2 gait instability, severe oa of b/l knees -all imaging w/out acute fx -b/l duplex neg for DVT -evaluated by ortho- recommend outpt follow up -PT eval- ambulated 30ft, may benefit from RW Code(s): W19.XXXA - UNSPECIFIED FALL, INITIAL ENCOUNTER Qualifiers: Encounter type: initial encounter Qualified Code(s): W19.XXXA - Unspecified fall, initial encounter (2) Pre-syncope Assessment/Plan: -appreciate cardiology assistance -awaiting ICD interrogation Code(s): R55 - SYNCOPE AND COLLAPSE (3) CAD (coronary artery disease) Assessment/Plan: -no acute ACS -cardiology following Code(s): I25.10 - ATHSCL HEART DISEASE OF [place] CORONARY ARTERY W/O ANG PCTRS Qualifiers: [place] vs. transplanted heart: [place] heart Associated angina: without angina (4) HTN (hypertension) Assessment/Plan: -controlled -continue home meds Code(s): I10 - ESSENTIAL (PRIMARY) HYPERTENSION Qualifiers: Hypertension type: essential hypertension Qualified Code(s): I10 - Essential (primary) hypertension (5) HLD (hyperlipidemia) Assessment/Plan: -stable -continue statin Code(s): E78.5 - HYPERLIPIDEMIA, UNSPECIFIED Qualifiers: Hyperlipidemia type: pure hypercholesterolemia Qualified Code(s): E78.00 - Pure hypercholesterolemia, unspecified; E78.0 - Pure hypercholesterolemia (6) Diabetes Assessment/Plan: -controlled -bgm, sliding scale -lantus on hold -diabetic diet Code(s): E11.9 - TYPE 2 DIABETES MELLITUS WITHOUT COMPLICATIONS Qualifiers: Diabetes mellitus type: type 2 Diabetes mellitus termite control technician insulin use: with senior care use Diabetes mellitus complication status: without complication Qualified Code(s): E11.9 - Type 2 diabetes mellitus without complications; Z79.4 - bed bug exterminator (current) use of insulin (7) Stasis dermatitis of both legs Assessment/Plan: -chronic -acewrap -lasix d/c'd per cardiology Code(s): I87.2 - VENOUS INSUFFICIENCY (CHRONIC) (PERIPHERAL) (8) History of CVA (cerebrovascular accident) Assessment/Plan: -chronic , 2002 Code(s): Z86.73 - PRSNL HX OF TIA (TIA), AND CEREB INFRC W/O RESID DEFICITS
[2018-11-26] MEDS: ATORVASTATIN CA 20 MG TABLET (FP) PO SCH (22:56)
[2018-11-27] MEDS: INSULIN SLIDING SCALE (NOVOLOG) 1 VIAL SQ SCH ×2 (06:44→11:40)
--- NOTE | 2018-11-27 08:29 | PN ---
Progress Note (short form) - Note Progress Note: Chief Complaint: Events noted, notes reviewed, denies any chest discomfort, denies any dyspnea History of Present Illness: Seen and examined on telemetry. Events noted, notes reviewed, denies any chest discomfort, denies any dyspnea Apparently ICD interrogation was performed; report not in chart Echocardiography Study was technically suboptimal, revealed normal LV systolic function, intra-cavitory gradient, mitral annular calcification and aortic valve sclerosis. Current Medications: Current Medications Amiodarone HCl (Cordarone -) 200 mg PO DAILY [facility] Last Admin: 11/26/18 09:19 Dose: 200 mg Amlodipine Besylate (Norvasc -) 5 mg PO DAILY [facility] Last Admin: 11/26/18 09:16 Dose: 5 mg Atorvastatin Calcium (Lipitor -) 20 mg PO HS [facility] Last Admin: 11/26/18 22:56 Dose: 20 mg Dipyridamole/Aspirin (Aggrenox -) 1 combo PO BID [facility] Last Admin: 11/26/18 22:56 Dose: 1 combo Dutasteride (Avodart -) 0.5 mg PO DAILY [facility] Last Admin: 11/26/18 09:13 Dose: 0.5 mg HCTZ/Losartan Potassium (Hyzaar -) 1 tab PO DAILY [facility] Last Admin: 11/26/18 09:12 Dose: 1 tab Sodium Chloride (Normal Saline -) 1,000 mls @ 50 mls/hr IV ASDIR [facility] Stop: 11/27/18 13:53 Last Admin: 11/26/18 14:45 Dose: 50 mls/hr Insulin Aspart (Novolog Vial Sliding Scale -) 1 vial SQ ACHS [facility]; Protocol Last Admin: 11/27/18 06:44 Dose: 2 units Isosorbide Mononitrate (Imdur -) 90 mg PO DAILY [facility] Last Admin: 11/26/18 09:12 Dose: 90 mg Metoprolol Tartrate (Lopressor -) 50 mg PO BID [facility] Last Admin: 11/26/18 22:56 Dose: 50 mg Potassium Chloride (K-Dur -) 20 meq PO DAILY [facility] Last Admin: 11/26/18 09:20 Dose: 20 meq Ranitidine HCl (Zantac -) 150 mg PO DAILY [facility] Last Admin: 11/26/18 09:12 Dose: 150 mg Sodium Bicarbonate (Sodium Bicarbonate -) 650 mg PO BID [facility] Last Admin: 11/26/18 22:56 Dose: 650 mg Tamsulosin HCl (Flomax -) 0.4 mg PO DAILY@0830 [facility] Last Admin: 11/26/18 09:12 Dose: 0.4 mg - Objective Vital Signs: Last Vital Signs Temp Pulse Resp BP Pulse Ox 97.7 F 72 20 163/94 94 L 11/27/18 06:00 11/27/18 06:00 11/27/18 06:00 11/27/18 06:00 11/27/18 08:19 Intake & Output 11/24/18 11/25/18 11/26/18 11/27/18 23:59 23:59 23:59 23:59 Intake Total 410 700 700 Output Total 1300 600 Balance -890 100 700 Weight 300 lb 293 lb 3 oz 294 lb 1 oz 289 lb 5 oz Neck: Supple Negative JVD No bruit Respiratory: Diminished breath sounds at the bases Cardiovascular: S1, S2 Regular Rate Rhythm Gastrointestinal: Soft Benign Normal Bowel Sounds Ext: Trace Ankle Edema Labs: CBC, BMP 11/25/18 06:00 11/26/18 06:00 Hepatic Panel Total Bilirubin 0.6 mg/dL (0.2-1) 11/24/18 16:43 AST 17 U/L (15-37) 11/24/18 16:43 ALT 26 U/L (13-61) 11/24/18 16:43 Alkaline Phosphatase 108 U/L (45-117) 11/24/18 16:43 Albumin 3.8 g/dl (3.4-5.0) 11/24/18 16:43 Assessment/Plan ASSESSMENT: 1. Gait disturbance/instability with frequent falls 2. Neurocardiogenic syncope, negative orthostasis 3. History of systolic left ventricular dysfunction, with no clinical evidence of congestive heart failure 4. History of sustained ventricular tachycardia post ICD implant 5. Hypertensive heart disease 6. Insulin-dependent diabetes mellitus 7. History of cerebrovascular disease/ischemic stroke 8. Chronic lower extremity edema with recurrent cellulitis PLAN: 1. Continue Amiodarone 2. Continue Lopressor 3. Continue Hyzaar 4. Continue Imdur 5. Continue Lipitor 6. Continue Aggrenox 7. Initiate PT/physical therapy 8. Advised staff to locate data from ICD interrogation Maggie Rojas MD
[2018-11-27] MEDS: LOSARTAN 50MG/HCTZ 12.5MG 1 TAB (FP) PO SCH (10:10)
[2018-11-27] MEDS: ASPIRIN/DIPYRIDAMOLE 25 MG/200 MG CAPSULE (FP) PO SCH (10:10)
[2018-11-27] MEDS: ISOSORBIDE MONONITRATE 30 MG TAB.SR.24H (FP) PO SCH (10:10)
[2018-11-27] MEDS: SODIUM BICARBONATE 650 MG TABLET PO SCH (10:10)
[2018-11-27] MEDS: RANITIDINE HCL 150 MG TABLET (FP) PO SCH (10:10)
[2018-11-27] MEDS: METOPROLOL TARTRATE 50 MG TABLET (FP) PO SCH (10:11)
[2018-11-27] MEDS: TAMSULOSIN HCL 0.4 MG CAP PO SCH (10:11)
[2018-11-27] MEDS: POTASSIUM CHLORIDE TABS 10 MEQ TABLET.ER (FP) PO SCH (10:11)
[2018-11-27] MEDS: amLODIPine BESYLATE 5 MG TABLET (FP) PO SCH (10:11)
[2018-11-27] MEDS: AMIODARONE HCL 200 MG TABLET (FP) PO SCH (10:11)
[2018-11-27] MEDS: DUTASTERIDE 0.5 MG CAP (FP) PO SCH (10:11)
[2018-11-27 10:54] VITALS: BP 153/76; PULSE 70; TEMP 98
--- NOTE | 2018-11-27 10:54 | DS ---
Physical Examination Vital Signs: Vital Signs Temperature 36.5 C 11/27/18 06:00 Pulse Rate 72 11/27/18 06:00 Respiratory Rate 20 11/27/18 06:00 Blood Pressure 163/94 11/27/18 06:00 O2 Sat by Pulse Oximetry (%) 94 L 11/27/18 08:19 Constitutional: Yes: No Distress, Calm, Obese Cardiovascular: Yes: Regular Rate and Rhythm. No: Gallop, Murmur, Rub Respiratory: Yes: Regular, CTA Bilaterally. No: Rales, Rhonchi, Wheezes Gastrointestinal: Yes: Normal Bowel Sounds, Soft. No: Distention, Tenderness Extremities: Yes: WNL Edema: Yes Edema: LLE: 2+, RLE: 2+ Labs: CBC, BMP 11/25/18 06:00 11/26/18 06:00 Discharge Summary Reason For Visit: UNABLE TO WALK Current Active Problems CAD (coronary artery disease) (Acute) Cerebrovascular disease (Acute) Degenerative joint disease of knee (Acute) Diabetes (Acute) Fall (Acute) Gait instability (Acute) HLD (hyperlipidemia) (Acute) HTN (hypertension) (Acute) History of CVA (cerebrovascular accident) (Acute) Hyperlipidemia associated with type 2 diabetes mellitus (Acute) ICD (implantable cardioverter-defibrillator) in place (Acute) Nonobstructive atherosclerosis of coronary artery (Acute) Pre-syncope (Acute) Stasis dermatitis of both legs (Acute) Unable to ambulate (Acute) Hospital Course: (1) Fall Code(s): W19.XXXA - UNSPECIFIED FALL, INITIAL ENCOUNTER Qualifiers: Encounter type: initial encounter Qualified Code(s): W19.XXXA - Unspecified fall, initial encounter (2) Pre-syncope Code(s): R55 - SYNCOPE AND COLLAPSE (3) CAD (coronary artery disease) Code(s): I25.10 - ATHSCL HEART DISEASE OF [place] CORONARY ARTERY W/O ANG PCTRS Qualifiers: [place] vs. transplanted heart: [place] heart Associated angina: without angina (4) HTN (hypertension) Code(s): I10 - ESSENTIAL (PRIMARY) HYPERTENSION Qualifiers: Hypertension type: essential hypertension Qualified Code(s): I10 - Essential (primary) hypertension (5) HLD (hyperlipidemia) Code(s): E78.5 - HYPERLIPIDEMIA, UNSPECIFIED Qualifiers: Hyperlipidemia type: pure hypercholesterolemia Qualified Code(s): E78.00 - Pure hypercholesterolemia, unspecified; E78.0 - Pure hypercholesterolemia (6) Diabetes Code(s): E11.9 - TYPE 2 DIABETES MELLITUS WITHOUT COMPLICATIONS Qualifiers: Diabetes mellitus type: type 2 Diabetes mellitus chcf insulin use: with watermelon inspector use Diabetes mellitus complication status: without complication Qualified Code(s): E11.9 - Type 2 diabetes mellitus without complications; Z79.4 - custodial (current) use of insulin (7) Stasis dermatitis of both legs Code(s): I87.2 - VENOUS INSUFFICIENCY (CHRONIC) (PERIPHERAL) (8) History of CVA (cerebrovascular accident) Code(s): Z86.73 - PRSNL HX OF TIA (TIA), AND CEREB INFRC W/O RESID DEFICITS Mr Ding is a very pleasant 72 year old male who came in with a fall secondary to vertigo. He was seen by cardiology and had a syncopal work up including an ECHO, carotid ultrasound, and interrogation of his ICD. All were negative. He did not have further symptoms in the hospital. He had some slight JHONY and received IVF, which improved. His plavix was stopped per cardiology recommendations. His lasix will be decreased to 40mg daily. Currently he is feeling well and is requesting discharge. He is safe for discharge home with close follow up. 32 minutes spent in preparation of this discharge Condition: Stable - Instructions Diet, Activity, Other Instructions: resume previous diet and activity Referrals: Marlo Leos MD [Primary Care Provider] - 1 Week Phillip Guajardo MD [Staff Physician] - 1 Week Disposition: HOME - Home Medications Comprehensive Discharge Medication List: Ambulatory Orders Amiodarone HCl [Cordarone -] 200 mg PO DAILY 04/01/15 Aspirin/Dipyridamole [Aggrenox -] 1 combo PO BID 04/01/15 Atorvastatin Ca [Lipitor] 20 mg PO HS 04/01/15 Ranitidine HCl [Zantac] 150 mg PO BID 04/01/15 Tamsulosin HCl 0.4 mg PO DAILY 04/01/15 Ascorbic Acid [Vitamin C] 1,000 mg PO DAILY 05/18/16 Dutasteride [Avodart] 0.5 mg PO DAILY 05/18/16 Glipizide 5 mg PO BID 05/18/16 Insulin Glargine,Hum.rec.anlog [Lantus Solostar PEN -] 0 units SQ BID 05/18/16 Isosorbide Mononitrate [Imdur -] 90 mg PO DAILY 05/18/16 Metoprolol Tartrate 50 mg PO BID 05/18/16 Potassium Chloride 20 meq PO DAILY 05/18/16 Sitagliptin Phosphate [Januvia] 100 mg PO DAILY 05/18/16 Insulin Glargine,Hum.rec.anlog [Lantus] 60 unit SQ HS 11/24/18 Losartan 50Mg/Hctz 12.5MG [Hyzaar -] 1 tab PO DAILY 11/24/18 Sodium Bicarbonate - 650 mg PO BID 11/24/18 Amlodipine Besylate 5 mg PO DAILY 11/25/18 Walker [Ultra-Light Rollator] 1 each MC DAILY #1 each 11/25/18 Furosemide [Lasix -] 40 mg PO DAILY #30 tablet 11/27/18
[2018-11-27 11:40] LABS: ANION GAP 7 MMOL/L (8-16); BLOOD UREA NITROGEN 22 mg/dL (7-18); CALCIUM 8.6 mg/dL (8.5-10.1); CHLORIDE 103 mmol/L (98-107); CO2 27 mmol/L (21-32); CREATININE 1.4 mg/dL (0.55-1.3); GLUCOSE,RANDOM 153 mg/dL (74-106); POTASSIUM 4.1 mmol/L (3.5-5.1); SODIUM 137 mmol/L (136-145)
== END 2018-11-27 13:32 | disposition home or self-care (01) ==
LOC: JER 15:10 → JERBED 20:58 → J6S 11-25 03:03
PROVIDERS: ADMIT Internal Medicine; ATTEND Nurse Practitioner Family
PROC: 3E0337Z Introduction of Electrolytic and Water Balance Substance into Peripheral Vein, Percutaneous Approach (ICD-10-PCS; principal; 2018-11-24)
DX: R26.2 Difficulty in walking, not elsewhere classified (principal); R29.6 Repeated falls; M25.562 Pain in left knee; M25.561 Pain in right knee; M17.0 Bilateral primary osteoarthritis of knee; I11.0 Hypertensive heart disease with heart failure; I25.10 Atherosclerotic heart disease of native coronary artery without angina pectoris; E11.69 Type 2 diabetes mellitus with other specified complication; E78.5 Hyperlipidemia, unspecified; I50.9 Heart failure, unspecified; G89.29 Other chronic pain; Z85.828 Personal history of other malignant neoplasm of skin; Z86.73 Personal history of transient ischemic attack (TIA), and cerebral infarction without residual deficits; Z95.810 Presence of automatic (implantable) cardiac defibrillator; Z79.4 Long term (current) use of insulin; Z88.6 Allergy status to analgesic agent; Z79.82 Long term (current) use of aspirin; Z79.01 Long term (current) use of anticoagulants; R60.0 Localized edema; D72.829 Elevated white blood cell count, unspecified; N17.9 Acute kidney failure, unspecified; Z91.81 History of falling; R55 Syncope and collapse; I87.2 Venous insufficiency (chronic) (peripheral); E66.9 Obesity, unspecified; Z68.41 Body mass index [BMI] 40.0-44.9, adult; W19.XXXA Unspecified fall, initial encounter; Y93.89 Activity, other specified; Y92.008 Other place in unspecified non-institutional (private) residence as the place of occurrence of the external cause
CPT/HCPCS: 36415; 71045-TC-FY; 72100-TC-FY; 73562-TC-LT-FY; 73562-TC-RT-FY; 80048; 80053; 82962; 83735; 84100; 84484; 85025; 85610; 85651; 93005; 93010; 93306-TC; 93970-TC; 96360; 96361; 97116-GP; 97161-GP; 99284-25; G0378; J7030

== ENCOUNTER 2019-09-01 13:28 | Inpatient (IN) | payer OTHER, BC ==
--- NOTE | 2019-09-01 13:46 | PDOC ---
History of Present Illness - General Chief Complaint: Weakness Stated Complaint: Weakness Time Seen by Provider: 09/01/19 13:34 History Source: Patient Exam Limitations: No Limitations - History of Present Illness Initial Comments: 73 year old male with PMH non-obstructive CAD, HTN, IDDM, sustained VT with ICD , ischemic stroke (2002), CHF, HLD, chronic lower extremity cellulitis, chronic lower extremity edema, ambulates with cane presented to ED for bilateral lower extremity weakness and multiple falls x2 weeks. Pt reported his most recent fall was today, he was trying to ambulate around his house, and fell to the ground from what he thinks was leg weakness. He denied head injury, LOC, vomiting, prodromal chest pain/shortness of breath/generalized weakness/ lightheadedness. Pt denied recent nausea/vomiting/diarrhea, recent illness, fever, chest pain, shortness of breath, cough, rhinorrhea, worsening cellulitis. Pt reported his chronic lower extremity cellulitis is at its baseline. ROS General: denied fever, chills, generalized weakness. HEENT: denied sore throat, rhinorrhea, ear pain. Cardiovascular: denied chest pain, palpitations, syncope, diaphoresis. Respiratory: denied shortness of breath, cough, sputum production, hemoptysis. Gastrointestinal: denied abdominal pain, nausea, vomiting, diarrhea, constipation, blood in stool. Genitourinary: denied dysuria, increased urinary frequency, hematuria, urinary incontinence, flank pain. Back: denied back pain. Musculoskeletal: denied joint pain, muscle pain, joint swelling. Neurological: denied headache, dizziness, numbness, tingling, weakness. Integumentary: denied rash, laceration, abrasion. Hematologic/Lymphatic: denied bruising or bleeding. PE Constitutional: Well-nourished, Well-developed, appearing stated age. morbidly obese. Airway: intact Breathing: bilateral breath sounds Circulation: 2+ carotid pulse B/L HEENT: head is normocephalic, atraumatic. No facial bones tenderness to palpation. No sinclair sign. No raccoon eyes. EOMI. PERRLA. Neck: supple. Full ROM. no midline c-spine tenderness to palpation. No step offs. Cardiovascular: regular heart rhythm. no murmurs. no pericardial friction rub. Chest wall: No tenderness to palpation of anterior chest wall. No deformity to anterior chest wall. Respiratory: clear to auscultation bilaterally. no crackles, rhonchi or wheezing. no stridor. Gastrointestinal: soft, nontender. normal bowel sounds. no rebound, guarding, masses. No ecchymoses. Back: no midline T-spine or L-spine tenderness to palpation. No step offs. Pelvis: lower extremities equal in length without external rotation. No hip tenderness to palpation. Extremities: peripheral pulses intact. nonpitting edema bilateral lower extremities. chronic wounds. Neurological: CN 2-12 grossly intact. moves all four extremities. Psych: awake, alert, oriented x3. follows commands. answers questions appropriately. Past History - Past Medical History Allergies/Adverse Reactions: Allergies Allergy/AdvReac Type Severity Reaction Status Date / Time codeine [Codeine] Allergy Verified 04/01/15 12:36 Home Medications: Ambulatory Orders Amiodarone HCl [Cordarone -] 200 mg PO DAILY 04/01/15 Aspirin/Dipyridamole [Aggrenox -] 1 combo PO BID 04/01/15 Atorvastatin Ca [Lipitor] 20 mg PO HS 04/01/15 Ranitidine HCl [Zantac] 150 mg PO BID 04/01/15 Tamsulosin HCl 0.4 mg PO DAILY 04/01/15 Dutasteride [Avodart] 0.5 mg PO DAILY 05/18/16 Insulin Glargine,Hum.rec.anlog [Lantus Solostar PEN -] 0 units SQ BID 05/18/16 Metoprolol Tartrate 50 mg PO BID 05/18/16 Potassium Chloride 20 meq PO DAILY 05/18/16 Sitagliptin Phosphate [Januvia] 100 mg PO DAILY 05/18/16 Insulin Glargine,Hum.rec.anlog [Lantus] 65 unit SQ HS 11/24/18 Sodium Bicarbonate - 650 mg PO BID 11/24/18 Walker [Ultra-Light Rollator] 1 each MC DAILY #1 each 11/25/18 Furosemide [Lasix -] 40 mg PO DAILY #30 tablet 11/27/18 Valsartan/Hydrochlorothiazide [Valsartan-Hctz 160-12.5 mg Tab] 1 tab DAILY 09/01 - Psycho Social/Smoking Cessation Hx Smoking Status: No Smoking History: Never smoked Have you smoked in the past 12 months: No Number of Cigarettes Smoked Daily: 0 Hx Alcohol Use: No Drug/Substance Use Hx: No Substance Use Type: None Hx Substance Use Treatment: No ED Treatment Course - LABORATORY CBC & Chemistry Diagram: 09/01/19 14:00 09/02/19 06:35 Medical Decision Making - Medical Decision Making 73 year old male with above PMH presented to ED for multiple falls and bilateral lower extremity weakness x2 weeks. Initial Vital Signs Temp Pulse Resp BP Pulse Ox 98.3 F 70 16 178/77 H 98 09/01/19 13:40 09/01/19 13:40 09/01/19 13:40 09/01/19 13:40 09/01/19 13:40 Afebrile. No tachycardia. No tachypnea. Hypertensive. No hypoxia on room air. Labs ordered: CBC, CMP, trop, BNP, mag Imaging ordered: CXR, bialteral knee XR, pelvis XR, CT head noncontrast, CT cervical spine noncontrast Medications ordered: tylenol IV once EKG performed at 1352: rate 78, regular rhythm, normal axis, normal intervals, flat T in aVF, flipped T III, no other ST changes. -Similar to EKG performed 11/25/18 PCP: Jase Leos Cardio: Casandra 09/01/19 14:36 CBC WBC 9.6 K/mm3 (4.0-10.0) 09/01/19 14:00 RBC 5.27 M/mm3 (4.00-5.60) 09/01/19 14:00 Hgb 14.5 GM/dL (11.7-16.9) 09/01/19 14:00 Hct 44.0 % (35.4-49) 09/01/19 14:00 MCV 83.5 fl (80-96) 09/01/19 14:00 MCH 27.4 pg (25.7-33.7) 09/01/19 14:00 MCHC 32.8 g/dl (32.0-35.9) 09/01/19 14:00 RDW 14.9 % (11.9-15.9) 09/01/19 14:00 Plt Count 214 K/MM3 (134-434) 09/01/19 14:00 MPV 8.5 fl (7.5-11.1) 09/01/19 14:00 Absolute Neuts (auto) 6.3 K/mm3 (1.5-8.0) 09/01/19 14:00 Neutrophils % 65.7 % (42.8-82.8) 09/01/19 14:00 Lymphocytes % 21.1 % (8-40) 09/01/19 14:00 Monocytes % 10.0 % (3.8-10.2) 09/01/19 14:00 Eosinophils % 2.3 % (0-4.5) 09/01/19 14:00 Basophils % 0.9 % (0-2.0) 09/01/19 14:00 Nucleated RBC % 0 % (0-0) 09/01/19 14:00 No leukocytosis. No anemia. 09/01/19 15:20 CBC WBC 9.6 K/mm3 (4.0-10.0) 09/01/19 14:00 RBC 5.27 M/mm3 (4.00-5.60) 09/01/19 14:00 Hgb 14.5 GM/dL (11.7-16.9) 09/01/19 14:00 Hct 44.0 % (35.4-49) 09/01/19 14:00 MCV 83.5 fl (80-96) 09/01/19 14:00 MCH 27.4 pg (25.7-33.7) 09/01/19 14:00 MCHC 32.8 g/dl (32.0-35.9) 09/01/19 14:00 RDW 14.9 % (11.9-15.9) 09/01/19 14:00 Plt Count 214 K/MM3 (134-434) 09/01/19 14:00 MPV 8.5 fl (7.5-11.1) 09/01/19 14:00 Absolute Neuts (auto) 6.3 K/mm3 (1.5-8.0) 09/01/19 14:00 Neutrophils % 65.7 % (42.8-82.8) 09/01/19 14:00 Lymphocytes % 21.1 % (8-40) 09/01/19 14:00 Monocytes % 10.0 % (3.8-10.2) 09/01/19 14:00 Eosinophils % 2.3 % (0-4.5) 09/01/19 14:00 Basophils % 0.9 % (0-2.0) 09/01/19 14:00 Nucleated RBC % 0 % (0-0) 09/01/19 14:00 CMP Sodium 139 mmol/L (136-145) 09/01/19 14:00 Potassium 3.8 mmol/L (3.5-5.1) 09/01/19 14:00 Chloride 107 mmol/L (98-107) 09/01/19 14:00 Carbon Dioxide 30 mmol/L (21-32) 09/01/19 14:00 Anion Gap 3 MMOL/L (8-16) L 09/01/19 14:00 BUN 20.0 mg/dL (7-18) H 09/01/19 14:00 Creatinine 1.4 mg/dL (0.55-1.3) H 09/01/19 14:00 Est GFR (CKD-EPI)AfAm 57.76 09/01/19 14:00 Est GFR (CKD-EPI)NonAf 49.84 09/01/19 14:00 POC Glucometer 117 UNITS (80-120) 09/01/19 13:44 Random Glucose 105 mg/dL (74-106) 09/01/19 14:00 Calcium 8.6 mg/dL (8.5-10.1) 09/01/19 14:00 Magnesium 2.1 mg/dL (1.8-2.4) 09/01/19 14:00 Total Bilirubin 0.5 mg/dL (0.2-1) 09/01/19 14:00 AST 11 U/L (15-37) L 09/01/19 14:00 ALT 19 U/L (13-61) 09/01/19 14:00 Alkaline Phosphatase 104 U/L (45-117) 09/01/19 14:00 Troponin I < 0.02 ng/ml (0.00-0.05) 09/01/19 14:00 B-Natriuretic Peptide 322.6 pg/ml (5-125) H 09/01/19 14:00 Total Protein 6.4 g/dl (6.4-8.2) 09/01/19 14:00 Albumin 3.3 g/dl (3.4-5.0) L 09/01/19 14:00 TSH 1.18 uIU/ml (0.358-3.74) 09/01/19 14:00 Cr at baseline. 09/01/19 16:01 CXR report: Name: ALEJANDRO JACINTO DEPARTMENT OF RADIOLOGY Phys: RikiFabiola RESIDENT : 1945 Age: 73 Sex: M [facility] Acct: [id number] Loc: [address] Exam Date: 09/01/19 Status: REG [place] [address] Unit Number: [id number] EXAM#: TYPE/EXAM: RESULT: [id number] RAD/CHEST PA LAT Chest: Fall. Pain. 2 views of the chest reveal clear well aerated lungs, normal mediastinum, left-sided pacemaker, sharp angles, intact soft tissues and degenerative changes with wedging. A gross fracture is not seen. Since 11/24/2018 there is no change of an adverse nature. Reported By: Matthew Cervantes MD 09/01/19 1559 09/01/19 16:11 L Knee XR report: Name: ALEJANDRO JACINTO DEPARTMENT OF RADIOLOGY Phys: RikiFabiola RESIDENT : 1945 Age: 73 Sex: M [facility] Acct: [id number] Loc: [address] Exam Date: 09/01/19 Status: [facility] [place] [address] Unit Number: [id number] EXAM#: TYPE/EXAM: RESULT: [id number] RAD/KNEE 2 POS-LEFT Left knee: Pain. Fall. 2 views of the left knee reveal osteoarthritic changes but no sign of fracture or subluxation no sign of blastic or lytic changes. Swelling, foreign body or soft tissue is not seen. There is no change since 11/24/2018. If symptoms persist , further imaging and orthopedic consultation may be of help. Reported By: Matthew Cervantes MD 09/01/19 1609 R Knee XR report: Name: ALEJANDRO JACINTO DEPARTMENT OF RADIOLOGY Phys: Fabiola Lyn RESIDENT : 1945 Age: 73 Sex: M [facility] Acct: [id number] Loc: [facility] [address] [place] [address] Exam Date: 09/01/19 Status: [place] [address] Unit Number: [id number] EXAM#: TYPE/EXAM: RESULT: [id number] RAD/KNEE 2 POS-RIGHT Right knee: Fall. Pain. 2 views of the right knee reveal osteoarthritic changes with some loss of bone density and vascular calcifications. An acute process is not seen. Since 11/24/2018, there is no change of an adverse nature. If symptoms persist on either side, then further imaging and orthopedic consultation may be of help Reported By: Matthew Cervantes MD 09/01/19 1610 Pelvis XR report: Name: ALEJANDRO JACINTO DEPARTMENT OF RADIOLOGY Phys: Fabiola Lyn RESIDENT : 1945 Age: 73 Sex: M [facility] Acct: [id number] Loc: [address] Exam Date: 09/01/19 Status: [place] [address] Unit Number: [id number] EXAM#: TYPE/EXAM: RESULT: [id number] RAD/PELVIS Pelvis: Fall. Pain. Single AP view of the pelvis reveals prominent soft tissues but no sign of fracture or subluxation and no sign of blastic or lytic changes. There is a nonspecific bowel pattern. The SI joints are patent. If symptoms persist, further imaging may be of help. Impression: No acute pelvic pathology. Excessive soft tissues. Reported By: Matthew Cervantes MD 09/01/19 1611 FABIOLA LYN 09/01/19 16:20 CT head report: Name: ALEJANDRO JACINTO DEPARTMENT OF RADIOLOGY Phys: Fabiola Lyn RESIDENT : 1945 Age: 73 Sex: M [facility] Acct: [id number] Loc: [address] Exam Date: 09/01/19 Status: [place] [address] Unit Number: [id number] EXAM#: TYPE/EXAM: RESULT: [id number] CT/HEAD CT WITHOUT CONTRAST Cranial CT without contrast Clinical information: fall from standing No CT evidence of intracranial injury or calvarial fracture. There is no extra-axial fluid collection. No obvious acute infarct is noted. Chronic infarction is seen involving the left basal ganglia/left frontal jasso radiata. No gross mass lesion is noted. There is no obstructive hydrocephalus. Impression: No CT evidence of acute intracranial pathology. Chronic left basal ganglia/frontal jasso radiata infarct. There has been no definite interval change in comparison to a prior CT study of 01/28/2019. Reported By: Rolando Allen MD 1614 09/01/19 16:[address] Dr[address] Bunch, pt to be admitted med/surg obs. Discharge - Discharge Information Problems reviewed: Yes Clinical Impression/Diagnosis: Frequent falls, Unable to ambulate Condition: Stable - Admission Yes - Follow up/Referral - Patient Discharge Instructions - Post Discharge Activity
[2019-09-01 14:19] LABS: BASO % 0.9 % (0-2.0); EOS % 2.3 % (0-4.5); HEMOGLOBIN 14.5 GM/dL (11.7-16.9); LYMPH % 21.1 % (8-40); MCH 27.4 pg (25.7-33.7); MCHC 32.8 g/dl (32.0-35.9); MEAN CELL VOLUME 83.5 fl (80-96); MEAN PLT VOLUME 8.5 fl (7.5-11.1); NEUT % 65.7 % (42.8-82.8); PLATELET COUNT 214 K/MM3 (134-434); RBC 5.27 M/mm3 (4.00-5.60); RDW 14.9 % (11.9-15.9); WHITE BLOOD COUNT 9.6 K/mm3 (4.0-10.0)
[2019-09-01 15:03] LABS: ALBUMIN 3.3 g/dl (3.4-5.0); ALK PHOS 104 U/L (45-117); ANION GAP 3 MMOL/L (8-16); BILIRUBIN,TOTAL 0.5 mg/dL (0.2-1); CALCIUM 8.6 mg/dL (8.5-10.1); CHLORIDE 107 mmol/L (98-107); CO2 30 mmol/L (21-32); CREATININE 1.4 mg/dL (0.55-1.3); GLUCOSE,RANDOM 105 mg/dL (74-106); MAGNESIUM 2.1 mg/dL (1.8-2.4); N-TERMINAL BNP 322.6 pg/ml (5-125); POTASSIUM 3.8 mmol/L (3.5-5.1); SGOT/AST 11 U/L (15-37); SGPT/ALT 19 U/L (13-61); SODIUM 139 mmol/L (136-145); TOT PROT 6.4 g/dl (6.4-8.2)
[2019-09-01] MEDS ORDERED: FUROSEMIDE 40 MG/4 ML INJECTABLE VIAL IVPUSH ONE (16:56)
[2019-09-01] MEDS ORDERED: FUROSEMIDE 40 MG/4 ML INJECTABLE VIAL ONE (17:03)
--- NOTE | 2019-09-01 17:06 | PN ---
Teaching Attending Note Name of Resident: Myrna Maynard ATTENDING PHYSICIAN STATEMENT I saw and evaluated the patient. I reviewed the resident's note and discussed the case with the resident. I agree with the resident's findings and plan as documented with exceptions below. SUBJECTIVE: 73 yom with PMhx of HTN, IDDM, CHF, hx sustained VT with ICD, [employer] 2010), ischemic stroke (2002) with no residual deficits, chronic stasis dermatitis/LE edema, neurocardiogenic syncope, prior admission with recurrent falls in 11/2018 comes with falls. patient reports this AM, was walking in the hous when his legs just gave out and he fell on his buttocks. Also another fall last night while going to the bathroom. reports recurrent falls over the last few weeks, confirms, mechanical falls where his legs just give out. Denies any chest pain, dizziness, palpitations, vision or speech disturbances, focal weakness, LOC, head trauma, bowel or urinary incontinence, leg tingling/numbness /weakness, around the fall. reports similar prior history. Has been recommended a walker but not compliance , uses a cane. last follow up with Dr. Guajardo 6 months ago. No h/o ICD shock. h/o recurrent LE cellulitis, treated with keflex non recently. overall unchanged LE edema, redness, no new pain/erythema or tenderness reported. OBJECTIVE: Vital Signs Period Temp Pulse Resp BP Sys/Farris Pulse Ox Last 24 Hr 98.3 F 70 16 178/77 98 Intake & Output 08/29/19 08/30/19 08/31/19 09/01/19 23:59 23:59 23:59 23:59 Weight 250 lb GENERAL: Awake, alert, and fully oriented, in no acute distress, morbidly obese BMI 40.4 HEAD: Normal with no signs of trauma. EYES: Pupils equal, round and reactive to light, extraocular movements intact, sclera anicteric, conjunctiva clear. No lid lag. EARS, NOSE, THROAT: Ears normal, nares patent, oropharynx clear without exudates. Moist mucous membranes. NECK: Normal range of motion, supple, no JVD or masses LUNGS: Breath sounds equal, clear to auscultation bilaterally. No wheezes, and no crackles. No accessory muscle use. HEART: Regular rate and rhythm, normal S1 and S2 ABDOMEN: Soft, obese, NT throughout, pos bowel sounds, left lateral abdominal wall ecchymosis, no tenderness noted MUSCULOSKELETAL: no spinal tenderness, Full ROM bilateral UE, Bilateral knees pain with movement but full active and passive ROM elicited, no visible swelling or erythema UPPER EXTREMITIES: 2+ pulses, warm, well-perfused. No cyanosis. No clubbing. No peripheral edema. LOWER EXTREMITIES: Bilateral LE edema with skin discoloration, some erythema, non tender, pos DP pulses, LLE>RLE (chronic per patient and daughter) NEUROLOGICAL: AAOX3, Facial symmetry, tongue midline, EOMI, PERRL, speech normal power 5/5, sensation intact and symmetric to crude touch, decreased bilateral feet, no pronator drift, finger nose test WNL, no dysdiadokinesia, toes downgoing, Cranial nerves II-XII intact. Normal speech. gait not observed PSYCHIATRIC: Cooperative. Good eye contact. Appropriate mood and affect. SKIN: Warm, dry, normal turgor, no rashes or lesions noted, normal capillary refill. Home Medications Medication Instructions Recorded Amiodarone HCl [Cordarone -] 200 mg PO DAILY 04/01/15 Aspirin/Dipyridamole [Aggrenox -] 1 combo PO BID 04/01/15 Atorvastatin Ca [Lipitor] 20 mg PO HS 04/01/15 Ranitidine HCl [Zantac] 150 mg PO BID 04/01/15 Tamsulosin HCl 0.4 mg PO DAILY 04/01/15 Ascorbic Acid [Vitamin C] 1,000 mg PO DAILY 05/18/16 Dutasteride [Avodart] 0.5 mg PO DAILY 05/18/16 Glipizide 5 mg PO BID 05/18/16 Insulin Glargine,Hum.rec.anlog 0 units SQ BID 05/18/16 [Lantus Solostar PEN -] Isosorbide Mononitrate [Imdur -] 90 mg PO DAILY 05/18/16 Metoprolol Tartrate 50 mg PO BID 05/18/16 Potassium Chloride 20 meq PO DAILY 05/18/16 Sitagliptin Phosphate [Januvia] 100 mg PO DAILY 05/18/16 Insulin Glargine,Hum.rec.anlog 60 unit SQ HS 11/24/18 [Lantus] Losartan 50Mg/Hctz 12.5MG [Hyzaar 1 tab PO DAILY 11/24/18 -] Sodium Bicarbonate - 650 mg PO BID 11/24/18 Amlodipine Besylate 5 mg PO DAILY 11/25/18 Walker [Ultra-Light Rollator] 1 each MC DAILY #1 each 11/25/18 Furosemide [Lasix -] 40 mg PO DAILY #30 tablet 11/27/18 Active Medications Heparin Sodium (Porcine) (Heparin -) 5,000 unit SQ TID KRISTIE Insulin Aspart (Novolog Vial Sliding Scale -) 1 vial SQ ACHS KRISTIE; Protocol Laboratory Results - last 24 hr 09/01/19 09/01/19 09/01/19 13:44 14:00 14:00 WBC 9.6 RBC 5.27 Hgb 14.5 Hct 44.0 MCV 83.5 MCH 27.4 MCHC 32.8 RDW 14.9 Plt Count 214 MPV 8.5 Absolute Neuts (auto) 6.3 Neutrophils % 65.7 Lymphocytes % 21.1 Monocytes % 10.0 Eosinophils % 2.3 Basophils % 0.9 Nucleated RBC % 0 Sodium 139 Potassium 3.8 Chloride 107 Carbon Dioxide 30 Anion Gap 3 L BUN 20.0 H Creatinine 1.4 H Est GFR (CKD-EPI)AfAm 57.76 Est GFR (CKD-EPI)NonAf 49.84 POC Glucometer 117 Random Glucose 105 Calcium 8.6 Magnesium 2.1 Total Bilirubin 0.5 AST 11 L ALT 19 Alkaline Phosphatase 104 Troponin I < 0.02 B-Natriuretic Peptide 322.6 H Total Protein 6.4 Albumin 3.3 L TSH 1.18 EKG NSR, no acute ST-T changes CT brain/Hip/pelvis/bilateral knee/chest xrays results reviewed CT C-spine results pending ASSESSMENT AND PLAN: 73 yom with PMhx of HTN, IDDM, CHF, hx sustained VT with ICD, [employer] 2010), ischemic stroke (2002) with no residual deficits, chronic stasis dermatitis/LE edema, neurocardiogenic syncope, prior admission with recurrent falls in 11/2018 comes with falls -Recurrent falls, suspect from LE edema+/- cellulitis/Diabetic neuropathy/knee osteoarthritis/morbid obesity (no concerning s/s to suspect cardiac/ neurological etiology) -IDDM -HTN -h/o diastolic Heart failure with chronic LE edema -Suspected mild LE cellulitis -h/o sustained V s/p ICD ([employer]) -h/o Ischemic CVA 2002 with no residual deficits -Neurocardiogenic syncope Plan: Lasix 40 mg IV x1, additional doses prn Trial with keflex Leg elevation Fall precautions, PT eval No s/s concerning for cardiac or neurological etiology. neg cerebellar signs, neurological exam non concerning currently. Also patient and family confirm mechanical falls (Legs give out with no chest pain, dyspnea, dizziness, ICD shock or concerns) ICD interrogation. reconcile home meds, resume anti-hypertensives/lantus. ISS diabetic cardiac diet Dispo admit to med surg obs, dc in 24 hours if improved, seen by PT and disposition arranged Discussed with patient and /daughter at bedside in detail, all questions answered total admit time 65 min.
--- NOTE | 2019-09-01 17:44 | HP ---
CHIEF COMPLAINT:frequent falls PCP:Dr. Leos HISTORY OF PRESENT ILLNESS: Patient is a 73 year old male with past medical history of non-obstructive CAD, HTN, IDDM, sustained VT with ICD, ischemic stroke (2002),CHF, HLD, chronic venous stasis, presented to the ED due to bilateral lower extremity weakness and multiple falls in the past 2 weeks. Patient reported he just suddenly had bilateral leg weakness, where his legs "would just give out" and he would fall. Patient reports decreased sensation and swelling in both legs, but denies any tingling, dizziness or lightheadedness, nausea, vomiting, blurring of vision, chest pain, palpitations, shortness of breath, generalized weakness. Patient denies any head trauma or loss of consciousness. He denies any changes in the diet or medications. No recent illness. No shock from ICD. He was last seen by regional vice president surgical sales, Dr. Guajardo 6 months ago. Of note too, patient reports chronic bilateral leg swelling and erythema, R>L where he was treated with antibiotics in the past. ER course was notable for: (1)Head and Cervical CT done - no acute pathology (2)Knee and hip xray - no fractures (3) Recent Travel:denies PAST MEDICAL HISTORY: non-obstructive CAD HTN IDDM sustained VT with ICD ischemic stroke (2002) CHF HLD chronic venous stasis PAST SURGICAL HISTORY: ICD placement Social History: Smoking:denies Alcohol:denies Drugs: denies lives with at home Allergies codeine [Codeine] Allergy (Verified 04/01/15 12:36) HOME MEDICATIONS: Home Medications Medication Instructions Recorded Amiodarone HCl [Cordarone -] 200 mg PO DAILY 04/01/15 Aspirin/Dipyridamole [Aggrenox -] 1 combo PO BID 04/01/15 Atorvastatin Ca [Lipitor] 20 mg PO HS 04/01/15 Ranitidine HCl [Zantac] 150 mg PO BID 04/01/15 Tamsulosin HCl 0.4 mg PO DAILY 04/01/15 Ascorbic Acid [Vitamin C] 1,000 mg PO DAILY 05/18/16 Dutasteride [Avodart] 0.5 mg PO DAILY 05/18/16 Glipizide 5 mg PO BID 05/18/16 Insulin Glargine,Hum.rec.anlog 0 units SQ BID 08/01/16 [Lantus Solostar PEN -] Isosorbide Mononitrate [Imdur -] 90 mg PO DAILY 05/18/16 Metoprolol Tartrate 50 mg PO BID 05/18/16 Potassium Chloride 20 meq PO DAILY 05/18/16 Sitagliptin Phosphate [Januvia] 100 mg PO DAILY 05/18/16 Insulin Glargine,Hum.rec.anlog 60 unit SQ HS 11/24/18 [Lantus] Losartan 50Mg/Hctz 12.5MG [Hyzaar 1 tab PO DAILY 11/24/18 -] Sodium Bicarbonate - 650 mg PO BID 11/24/18 Amlodipine Besylate 5 mg PO DAILY 11/25/18 Walker [Ultra-Light Rollator] 1 each MC DAILY #1 each 11/25/18 Furosemide [Lasix -] 40 mg PO DAILY #30 tablet 11/27/18 REVIEW OF SYSTEMS CONSTITUTIONAL: falls Absent: fever, chills, diaphoresis, generalized weakness, malaise, loss of appetite, weight change HEENT: Absent: rhinorrhea, nasal congestion, throat pain, throat swelling, difficulty swallowing, mouth swelling, ear pain, eye pain, visual changes CARDIOVASCULAR: Absent: chest pain, syncope, palpitations, irregular heart rate, lightheadedness , peripheral edema RESPIRATORY: Absent: cough, shortness of breath, dyspnea with exertion, orthopnea, wheezing, stridor, hemoptysis GASTROINTESTINAL: Absent: abdominal pain, abdominal distension, nausea, vomiting, diarrhea, constipation, melena, hematochezia GENITOURINARY: Absent: dysuria, frequency, urgency, hesitancy, hematuria, flank pain, genital pain MUSCULOSKELETAL: Absent: myalgia, arthralgia, joint swelling, back pain, neck pain SKIN: Absent: rash, itching, pallor HEMATOLOGIC/IMMUNOLOGIC: Absent: easy bleeding, easy bruising, lymphadenopathy, frequent infections ENDOCRINE: Absent: unexplained weight gain, unexplained weight loss, heat intolerance, cold intolerance NEUROLOGIC: unsteady gait Absent: headache, focal weakness or paresthesias, dizziness, seizure, mental status changes, bladder or bowel incontinence PSYCHIATRIC: Absent: anxiety, depression, suicidal or homicidal ideation, hallucinations. PHYSICAL EXAMINATION Vital Signs - 24 hr 09/01/19 13:40 Temperature 98.3 F Pulse Rate 70 Respiratory 16 Rate Blood Pressure 178/77 H O2 Sat by Pulse 98 Oximetry (%) GENERAL: Awake, alert, and fully oriented, in no acute distress. HEAD: Normal with no signs of trauma. EYES: PERRLA, EOMI, sclera anicteric, conjunctiva clear. EARS, NOSE, THROAT: Moist mucous membranes. NECK: Normal range of motion, supple LUNGS: Breath sounds equal, clear to auscultation bilaterally. HEART: Regular rate and rhythm, normal S1 and S2 without murmur, rub or gallop. ABDOMEN: Soft, nontender, not distended, normoactive bowel sounds. MUSCULOSKELETAL: Normal range of motion at all joints. No bony deformities or tenderness. +ecchymosis on the Left flank UPPER EXTREMITIES: 2+ pulses, warm, well-perfused. No peripheral edema. LOWER EXTREMITIES: 2+ pulses, warm, well-perfused. +chronic venous stasis changes bilaterally, +peripheral edema R>L NEUROLOGICAL: Cranial nerves II-XII intact. Normal speech. Motor strength 5/5 on all extremities, sensation decreased on bilateral LE. PSYCHIATRIC: Cooperative. Good eye contact. Appropriate mood and affect. SKIN: Warm, dry, normal turgor. Laboratory Results - last 24 hr 09/01/19 09/01/19 09/01/19 13:44 14:00 14:00 WBC 9.6 RBC 5.27 Hgb 14.5 Hct 44.0 MCV 83.5 MCH 27.4 MCHC 32.8 RDW 14.9 Plt Count 214 MPV 8.5 Absolute Neuts (auto) 6.3 Neutrophils % 65.7 Lymphocytes % 21.1 Monocytes % 10.0 Eosinophils % 2.3 Basophils % 0.9 Nucleated RBC % 0 Sodium 139 Potassium 3.8 Chloride 107 Carbon Dioxide 30 Anion Gap 3 L BUN 20.0 H Creatinine 1.4 H Est GFR (CKD-EPI)AfAm 57.76 Est GFR (CKD-EPI)NonAf 49.84 POC Glucometer 117 Random Glucose 105 Calcium 8.6 Magnesium 2.1 Total Bilirubin 0.5 AST 11 L ALT 19 Alkaline Phosphatase 104 Troponin I < 0.02 B-Natriuretic Peptide 322.6 H Total Protein 6.4 Albumin 3.3 L TSH 1.18 ASSESSMENT/PLAN: Patient is a 73 year old male with past medical history of non-obstructive CAD, HTN, IDDM, sustained VT with ICD, ischemic stroke (2002),CHF, HLD, chronic venous stasis, presented to the ED due to bilateral lower extremity weakness and multiple falls in the past 2 weeks. #Recurrent falls, likely multifactorial -could be due to DM neuropathy, bilateral LE edema with possible RLE cellulitis , knee arthritis, morbid obesity -unlikely cardiac/neurological in etiology -will give one time dose of lasix 40mg IV for LE edema -called [employer] for ICD interrogation -Will start Keflex 500mg bid for possible RLE cellulitis -physical therapy eval -fall risk precautions #Hx of CAD -Continue Metoprolol 50mg bid -continue Aspirin/Dipryridamole bid -continue Lipitor 20mg Hs #IDDM -Hold home Sitagliptin -on home Insulin Glargine 65 units at bedtime, will give 40u tonight -Insulin sliding scale implemented -BGM ACHs #Hypertension -Continue home dose Valsartan/HCTZ daily #Hyperlipidemia -continue Lipitor #Hx of HFpEF -one time IV lasix given tonight -Continue home dose of Lasix 40mg PO in am #Hx of sustained VT s/p ICD -for ICD interrogation with [employer] in am -continue home Amiodarone 200mg daily #Chronic venous stasis -will give IV Lasix 40mg Iv x1 -keep legs elevated #FEn -Not on any standing fluids -Electrolytes wnl, routine bmp monitoring -diabetic/sodium restricted diet #Prophylaxis -Heparin 5000u sq tid #Disposition -full code -admit to med surg -for physical therapy evaluation, then likely dc in 24 hours if continues to improve and pending PT eval Visit type - Emergency Visit Emergency Visit: Yes ED Registration Date: 09/01/19 Care time: The patient presented to the Emergency Department on the above date and was hospitalized for further evaluation of their emergent condition. - New Patient This patient is new to me today: Yes Date on this admission: 09/01/19 - Critical Care Critical Care patient: No ATTENDING PHYSICIAN STATEMENT I saw and evaluated the patient. I reviewed the resident's note and discussed the case with the resident. I agree with the resident's findings and plan as documented. SUBJECTIVE: OBJECTIVE: ASSESSMENT AND PLAN:
[2019-09-01 20:31] LABS: URINE APPEARANCE CLEAR; URINE BILIRUBIN NEGATIVE (NEGATIVE); URINE COLOR YELLOW; URINE GLUCOSE (UA) NEGATIVE (NEGATIVE); URINE KETONE NEGATIVE (NEGATIVE); URINE LEUK ESTERASE NEGATIVE (NEGATIVE); URINE NITRITE NEGATIVE (NEGATIVE); URINE PROTEIN NEGATIVE (NEGATIVE); URINE UROBILINOGEN 0.2 mg/dL (0.2-1.0)
[2019-09-01] MEDS ORDERED: PATIENT'S OWN MEDICATION (NON-FORMULARY) (Ranitidine Hcl [Zantac] 150 MG) PO SCH (22:00)
[2019-09-01] MEDS: SODIUM BICARBONATE 650 MG TABLET PO SCH (23:13)
[2019-09-01] MEDS: METOPROLOL TARTRATE 50 MG TABLET (FP) PO SCH (23:14)
[2019-09-01] MEDS: INSULIN SLIDING SCALE (NOVOLOG) 1 VIAL SQ SCH (23:14)
[2019-09-01] MEDS: CEPHALEXIN MONOHYDRATE 500 MG CAPSULE (UD) PO SCH (23:14)
[2019-09-01] MEDS: ATORVASTATIN CA 20 MG TABLET (FP) PO SCH (23:14)
[2019-09-01] MEDS: FAMOTIDINE 20 MG TABLET PO SCH (23:14)
[2019-09-01] MEDS: HEPARIN NA (PORCINE) 5,000 UNITS/ML 1ML VIAL SQ SCH (23:15)
[2019-09-01] MEDS ORDERED: PT OWN MED DRAWER 7, Y5N ONE (23:16)
[2019-09-01] MEDS: INSULIN (LEVEMIR) 100 UNITS/ML UNITS SQ SCH (23:19)
[2019-09-02] MEDS: ASPIRIN/DIPYRIDAMOLE 25 MG/200 MG CAPSULE PO SCH ×3 (00:02→21:32)
[2019-09-02 05:45] VITALS: BMI 51.2
[2019-09-02] MEDS ORDERED: ACETAMINOPHEN 325 MG TABLET (FP) PO PRN (06:19)
[2019-09-02] MEDS: HEPARIN NA (PORCINE) 5,000 UNITS/ML 1ML VIAL SQ SCH ×3 (06:54→21:29)
[2019-09-02] MEDS ORDERED: sitaGLIPtin PHOSPHATE 50 MG TABLET PO SCH (07:00)
[2019-09-02] MEDS: INSULIN SLIDING SCALE (NOVOLOG) 1 VIAL SQ SCH ×4 (07:14→21:36)
[2019-09-02 08:19] LABS: BLOOD UREA NITROGEN 20.8 mg/dL (7-18); CALCIUM 8.4 mg/dL (8.5-10.1); CREATININE 1.3 mg/dL (0.55-1.3); MAGNESIUM 2.2 mg/dL (1.8-2.4); PHOSPHOROUS 3.1 mg/dL (2.5-4.9); POTASSIUM 3.8 mmol/L (3.5-5.1)
[2019-09-02] MEDS ORDERED: PT OWN MED DRAWER 7, Y5N ONE ×2 (09:30→21:10)
[2019-09-02] MEDS: FUROSEMIDE 40 MG TABLET (FP) PO SCH (09:31)
[2019-09-02] MEDS: TAMSULOSIN HCL 0.4 MG CAP PO SCH (09:31)
[2019-09-02] MEDS: HYDROCHLOROTHIAZIDE 12.5 MG CAPSULE (FP) PO SCH (09:31)
[2019-09-02] MEDS: DUTASTERIDE 0.5 MG CAP (FP) PO SCH (09:31)
[2019-09-02] MEDS: CEPHALEXIN MONOHYDRATE 500 MG CAPSULE (UD) PO SCH ×2 (09:31→21:29)
[2019-09-02] MEDS: VALSARTAN 160 MG TABLET (UD) PO SCH (09:31)
[2019-09-02] MEDS: METOPROLOL TARTRATE 50 MG TABLET (FP) PO SCH ×2 (09:31→21:29)
[2019-09-02] MEDS: AMIODARONE HCL 200 MG TABLET (FP) PO SCH (09:31)
[2019-09-02] MEDS: FAMOTIDINE 20 MG TABLET PO SCH ×2 (09:31→21:30)
[2019-09-02] MEDS: SODIUM BICARBONATE 650 MG TABLET PO SCH ×2 (09:31→21:29)
[2019-09-02] MEDS: POTASSIUM CHLORIDE TABS 20 MEQ TABLET.ER (FP) PO SCH (09:31)
[2019-09-02] MEDS ORDERED: ENOXAPARIN NA (PORCINE) 40 MG/0.4 ML DISP.SYRIN SQ SCH (10:00)
[2019-09-02] MEDS ORDERED: PATIENT'S OWN MEDICATION (NON-FORMULARY) (Potassium Chloride [Potassium Chloride] 20 MEQ) PO SCH (10:00)
[2019-09-02] MEDS ORDERED: PATIENT'S OWN MEDICATION (NON-FORMULARY) (Valsartan/Hydrochlorothiazide [Valsartan-Hctz 16 PO SCH (10:00)
[2019-09-02] MEDS ORDERED: FUROSEMIDE 40 MG/4 ML INJECTABLE VIAL IVPUSH ONE (15:20)
--- NOTE | 2019-09-02 15:24 | PN ---
Physical Exam: SUBJECTIVE: Patient seen and examined, no new complaints. Still unsteady with walking. OBJECTIVE: Vital Signs Period Temp Pulse Resp BP Sys/Farris Pulse Ox Last 24 Hr 98 F-98.3 F 63-76 16-18 151-187/68-93 95-98 Intake & Output 08/30/19 08/31/19 09/01/19 09/02/19 23:59 23:59 23:59 23:59 Intake Total 0 Output Total 300 600 Balance -300 -600 Weight 317 lb 2 oz 310 lb 8 oz GENERAL: lying in bed in no acute distress Neck: soft, supple Chest: decreased air entry Abdomen:soft, obese Extremities: improved swelling, overall unchanged skin discoloration Neuro: unchanged exam Musculoskeletal: no spinal tenderness, passive ROM full LE, power 5/5 Laboratory Results - last 24 hr 09/01/19 09/01/19 09/02/19 16:21 23:10 06:35 Sodium 141 Potassium 3.8 Chloride 106 Carbon Dioxide 28 Anion Gap 6 L BUN 20.8 H Creatinine 1.3 Est GFR (CKD-EPI)AfAm 63.18 Est GFR (CKD-EPI)NonAf 54.51 POC Glucometer 117 Random Glucose 78 Hemoglobin A1c % Calcium 8.4 L Phosphorus 3.1 Magnesium 2.2 Urine Color Yellow Urine Appearance Clear Urine pH 7.0 Ur Specific [place] 1.010 Urine Protein Negative Urine Glucose (UA) Negative Urine Ketones Negative Urine Blood Negative Urine Nitrite Negative Urine Bilirubin Negative Urine Urobilinogen 0.2 Ur Leukocyte Esterase Negative 09/02/19 09/02/19 09/02/19 06:35 06:51 11:04 Sodium Potassium Chloride Carbon Dioxide Anion Gap BUN Creatinine Est GFR (CKD-EPI)AfAm Est GFR (CKD-EPI)NonAf POC Glucometer 89 100 Random Glucose Hemoglobin A1c % 7.5 H Calcium Phosphorus Magnesium Urine Color Urine Appearance Urine pH Ur Specific [place] Urine Protein Urine Glucose (UA) Urine Ketones Urine Blood Urine Nitrite Urine Bilirubin Urine Urobilinogen Ur Leukocyte Esterase Active Medications Generic Name Dose Route Start Last Admin Trade Name Freq PRN Reason Stop Dose Admin Amiodarone HCl 200 mg 09/02/19 10:00 09/02/19 09:31 Cordarone - PO 200 mg DAILY KRISTIE Administration Atorvastatin Calcium 20 mg 09/01/19 22:00 09/01/19 23:14 Lipitor - PO 20 mg HS KRISTIE Administration Cephalexin HCl 500 mg 09/01/19 22:00 09/02/19 09:31 Keflex - PO 500 mg BID KRISTIE Administration Dipyridamole/Aspirin 1 combo 09/01/19 22:00 09/02/19 09:32 Aggrenox - PO 1 combo BID KRISTIE Administration Dutasteride 0.5 mg 09/02/19 10:00 09/02/19 09:31 Avodart - PO 0.5 mg DAILY KRISTIE Administration Famotidine 20 mg 09/01/19 22:00 09/02/19 09:31 Pepcid - PO 20 mg BID KRISTIE Administration Furosemide 40 mg 09/02/19 10:00 09/02/19 09:31 Lasix - PO 40 mg DAILY KRISTIE Administration Furosemide 20 mg 09/02/19 15:20 Lasix Injection - IVPUSH 09/02/19 15:21 ONCE ONE Heparin Sodium (Porcine) 5,000 unit 09/01/19 22:00 09/02/19 06:54 Heparin - SQ 5,000 unit TID KRISTIE Administration Hydrochlorothiazide 12.5 mg 09/02/19 10:00 09/02/19 09:31 Hctz - PO 12.5 mg DAILY KRISTIE Administration Insulin Aspart 1 vial 09/01/19 22:00 09/02/19 07:14 Novolog Vial Sliding Scale - SQ Not Given [facility] Protocol Insulin Detemir 40 units 09/01/19 22:00 09/01/19 23:19 Levemir Vial SQ 40 units HS KRISTIE Administration Metoprolol Tartrate 50 mg 09/01/19 22:00 09/02/19 09:31 Lopressor - PO 50 mg BID KRISTIE Administration Potassium Chloride 20 meq 09/02/19 10:00 09/02/19 09:31 K-Dur - PO 20 meq DAILY KRISTIE Administration Sitagliptin Phosphate 100 mg 09/02/19 07:00 09/02/19 06:53 Januvia - PO 100 mg ACBK KRISTIE Administration Sodium Bicarbonate 650 mg 09/01/19 22:00 09/02/19 09:31 Sodium Bicarbonate - PO 650 mg BID KRISTIE Administration Tamsulosin HCl 0.4 mg 09/02/19 10:00 09/02/19 09:31 Flomax - PO 0.4 mg DAILY KRISTIE Administration Valsartan 160 mg 09/02/19 10:00 09/02/19 09:31 Diovan - PO 160 mg DAILY KRISTIE Administration ASSESSMENT/PLAN: 73 yom with PMhx of HTN, IDDM, CHF, hx sustained VT with ICD, [employer] 2010), ischemic stroke (2002) with no residual deficits, chronic stasis dermatitis/LE edema, neurocardiogenic syncope, prior admission with recurrent falls in 11/2018 comes with falls -Recurrent falls, suspect from LE edema+/- cellulitis/Diabetic neuropathy/knee osteoarthritis/morbid obesity (no concerning s/s to suspect cardiac/ neurological etiology) -IDDM -HTN -h/o diastolic Heart failure with chronic LE edema -Suspected mild LE cellulitis -h/o sustained V s/p ICD ([employer]) -h/o Ischemic CVA 2002 with no residual deficits -Neurocardiogenic syncope Plan: Additional Lasix 20 mg IV x1, continue PO. Leg eleavation. keflex trial. Fall precautions, PT eval noted, needs SNF. No s/s concerning for cardiac or neurological etiology. neg cerebellar signs, neurological exam non concerning currently. Also patient and family confirm mechanical falls (Legs give out with no chest pain, dyspnea, dizziness, ICD shock or concerns) ICD interrogation. Continue anti-hypertensives/Lantus, ISS diabetic cardiac diet Dispo PT eval noted, unsafe for home dc. needs iv diuresis, and safe disposition arrangements, given high fall risk. Aim for SNF early next week if improved and clinical disposition arranged. Plan discussed with patient and nursing in detail, all questions answered. Visit type - Emergency Visit Emergency Visit: Yes ED Registration Date: 09/02/19 Care time: The patient presented to the Emergency Department on the above date and was hospitalized for further evaluation of their emergent condition. - New Patient This patient is new to me today: No - Critical Care Critical Care patient: No - Discharge Referral Referred to [facility] Med [facility].: No
--- NOTE | 2019-09-02 17:27 | PDOC ---
Attending Attestation - Resident Resident Name: Fabiola Lyn - ED Attending Attestation I have performed the following: I have examined & evaluated the patient, The case was reviewed & discussed with the resident, I agree w/resident's findings & plan, Exceptions are as noted - HPI HPI: 09/02/19 17:25 73 M with h/o CAD, HTN, DM, AICD, CVA, CHF, HLD, presenting for multiple falls. Pt reports that he has been having increasing difficulty walking due to bilateral leg weakness. Denies any unilateral weakness. States that over the past 2 weeks he has had several falls. He states that his legs give out under him, causing him to fall. Denies F/C. Denies CP/SOB. Endorses chronic leg swelling. - Physicial Exam PE: 09/02/19 17:26 Agree w/ resident exam - Medical Decision Making 09/02/19 17:26 73 M with frequent falls. Will evaluate for infectious process. Pt with no focal neuro deficits on exam. Suspect pt is deconditioned. - Labs - CT head - CXR, UA - Admit
[2019-09-02] MEDS: ATORVASTATIN CA 20 MG TABLET (FP) PO SCH (21:29)
[2019-09-02] MEDS: INSULIN (LEVEMIR) 100 UNITS/ML UNITS SQ SCH (21:30)
[2019-09-03] MEDS: HEPARIN NA (PORCINE) 5,000 UNITS/ML 1ML VIAL SQ SCH ×3 (06:26→21:33)
[2019-09-03] MEDS: INSULIN SLIDING SCALE (NOVOLOG) 1 VIAL SQ SCH ×4 (06:26→21:34)
[2019-09-03] MEDS ORDERED: INSULIN (LEVEMIR) 100 UNITS/ML UNITS SQ ONE (06:33)
[2019-09-03 07:46] LABS: BLOOD UREA NITROGEN 25.1 mg/dL (7-18); CALCIUM 8.9 mg/dL (8.5-10.1); CREATININE 1.5 mg/dL (0.55-1.3); POTASSIUM 3.4 mmol/L (3.5-5.1)
[2019-09-03] MEDS ORDERED: POTASSIUM CHLORIDE TABS 20 MEQ TABLET.ER (FP) PO ONE (08:06)
[2019-09-03] MEDS ORDERED: PT OWN MED DRAWER 7, Y5N ONE ×2 (10:09→20:59)
[2019-09-03] MEDS: TAMSULOSIN HCL 0.4 MG CAP PO SCH (10:15)
[2019-09-03] MEDS: METOPROLOL TARTRATE 50 MG TABLET (FP) PO SCH ×2 (10:15→21:33)
[2019-09-03] MEDS: VALSARTAN 160 MG TABLET (UD) PO SCH (10:15)
[2019-09-03] MEDS: HYDROCHLOROTHIAZIDE 12.5 MG CAPSULE (FP) PO SCH (10:15)
[2019-09-03] MEDS: DUTASTERIDE 0.5 MG CAP (FP) PO SCH (10:15)
[2019-09-03] MEDS: AMIODARONE HCL 200 MG TABLET (FP) PO SCH (10:15)
[2019-09-03] MEDS: FAMOTIDINE 20 MG TABLET PO SCH ×2 (10:15→21:33)
[2019-09-03] MEDS: CEPHALEXIN MONOHYDRATE 500 MG CAPSULE (UD) PO SCH ×2 (10:15→21:33)
[2019-09-03] MEDS: FUROSEMIDE 40 MG TABLET (FP) PO SCH (10:15)
[2019-09-03] MEDS: SODIUM BICARBONATE 650 MG TABLET PO SCH ×2 (10:15→21:33)
--- NOTE | 2019-09-03 12:30 | PN ---
Teaching Attending Note Name of Resident: Abida Hubbard ATTENDING PHYSICIAN STATEMENT I saw and evaluated the patient. I reviewed the resident's note and discussed the case with the resident. I agree with the resident's findings and plan as documented with exceptions below. SUBJECTIVE: Patient seen and examined, leg symptoms improved, no new complaints. OBJECTIVE: Vital Signs Period Temp Pulse Resp BP Sys/Farris Pulse Ox Last 24 Hr 97.5 F-97.9 F 65-78 18-20 125-162/62-79 95-95 Intake & Output 08/31/19 09/01/19 09/02/19 09/03/19 23:59 23:59 23:59 23:59 Intake Total 0 1100 Output Total 300 2740 Balance -300 -1640 Weight 317 lb 2 oz 310 lb 8 oz 307 lb General: sitting in bed, no acute distress neck: soft, supple Chest: CTAB, no rales or wheezing Abdomen:soft, obese, NT Extremities: bilateral leg edema improved, some improvement in erythema, chronic skin discoloration unchanged Home Medications Medication Instructions Recorded Amiodarone HCl [Cordarone -] 200 mg PO DAILY 04/01/15 Aspirin/Dipyridamole [Aggrenox -] 1 combo PO BID 04/01/15 Atorvastatin Ca [Lipitor] 20 mg PO HS 04/01/15 Ranitidine HCl [Zantac] 150 mg PO BID 04/01/15 Tamsulosin HCl 0.4 mg PO DAILY 04/01/15 Dutasteride [Avodart] 0.5 mg PO DAILY 05/18/16 Insulin Glargine,Hum.rec.anlog 0 units SQ BID 05/18/16 [Lantus Solostar PEN -] Metoprolol Tartrate 50 mg PO BID 05/18/16 Potassium Chloride 20 meq PO DAILY 05/18/16 Sitagliptin Phosphate [Januvia] 100 mg PO DAILY 05/18/16 Insulin Glargine,Hum.rec.anlog 65 unit SQ HS 11/24/18 [Lantus] Sodium Bicarbonate - 650 mg PO BID 11/24/18 Walker [Ultra-Light Rollator] 1 each MC DAILY #1 each 11/25/18 Furosemide [Lasix -] 40 mg PO DAILY #30 tablet 11/27/18 Valsartan/Hydrochlorothiazide 1 tab DAILY 09/01/19 [Valsartan-Hctz 160-12.5 mg Tab] Active Medications Amiodarone HCl (Cordarone -) 200 mg PO DAILY [facility] Last Admin: 09/03/19 10:15 Dose: 200 mg Atorvastatin Calcium (Lipitor -) 20 mg PO HS [facility] Last Admin: 09/02/19 21:29 Dose: 20 mg Cephalexin HCl (Keflex -) 500 mg PO BID [facility] Last Admin: 09/03/19 10:15 Dose: 500 mg Dipyridamole/Aspirin (Aggrenox -) 1 combo PO BID [facility] Last Admin: 09/02/19 21:32 Dose: 1 combo Dutasteride (Avodart -) 0.5 mg PO DAILY [facility] Last Admin: 09/03/19 10:15 Dose: 0.5 mg Famotidine (Pepcid -) 20 mg PO BID [facility] Last Admin: 09/03/19 10:15 Dose: 20 mg Furosemide (Lasix -) 40 mg PO DAILY [facility] Last Admin: 09/03/19 10:15 Dose: 40 mg Heparin Sodium (Porcine) (Heparin -) 5,000 unit SQ TID [facility] Last Admin: 09/03/19 06:26 Dose: 5,000 unit Hydrochlorothiazide (Hctz -) 12.5 mg PO DAILY [facility] Last Admin: 09/03/19 10:15 Dose: 12.5 mg Insulin Aspart (Novolog Vial Sliding Scale -) 1 vial SQ [facility]; Protocol Last Admin: 09/03/19 12:25 Dose: Not Given Insulin Detemir (Levemir Vial) 40 units SQ HS [facility] Last Admin: 09/02/19 21:30 Dose: 40 units Metoprolol Tartrate (Lopressor -) 50 mg PO BID [facility] Last Admin: 09/03/19 10:15 Dose: 50 mg Potassium Chloride (K-Dur -) 20 meq PO DAILY [facility] Last Admin: 09/02/19 09:31 Dose: 20 meq Sitagliptin Phosphate (Januvia -) 100 mg PO ACBK [facility] Last Admin: 09/03/19 06:25 Dose: 100 mg Sodium Bicarbonate (Sodium Bicarbonate -) 650 mg PO BID [facility] Last Admin: 09/03/19 10:15 Dose: 650 mg Tamsulosin HCl (Flomax -) 0.4 mg PO DAILY [facility] Last Admin: 09/03/19 10:15 Dose: 0.4 mg Valsartan (Diovan -) 160 mg PO DAILY [facility] Last Admin: 09/03/19 10:15 Dose: 160 mg Laboratory Results - last 24 hr 09/02/19 09/03/19 09/03/19 20:45 05:52 06:58 Sodium 139 Potassium 3.4 L Chloride 104 Carbon Dioxide 29 Anion Gap 6 L BUN 25.1 H Creatinine 1.5 H Est GFR (CKD-EPI)AfAm 53.14 Est GFR (CKD-EPI)NonAf 45.85 POC Glucometer 127 97 Random Glucose 88 Calcium 8.9 09/03/19 10:44 Sodium Potassium Chloride Carbon Dioxide Anion Gap BUN Creatinine Est GFR (CKD-EPI)AfAm Est GFR (CKD-EPI)NonAf POC Glucometer 144 Random Glucose Calcium ASSESSMENT AND PLAN: 73 yom with PMhx of HTN, IDDM, CHF, hx sustained VT with ICD, [employer] 2010), ischemic stroke (2002) with no residual deficits, chronic stasis dermatitis/LE edema, neurocardiogenic syncope, prior admission with recurrent falls in 11/2018 comes with falls -Recurrent falls, suspect from LE edema+/- cellulitis/Diabetic neuropathy/knee osteoarthritis/morbid obesity (no concerning s/s to suspect cardiac/ neurological etiology) -IDDM -HTN -h/o diastolic Heart failure with chronic LE edema -Suspected mild LE cellulitis -h/o sustained V s/p ICD ([employer]) -h/o Ischemic CVA 2002 with no residual deficits -Neurocardiogenic syncope Plan: leg swelling improved, hold further IV lasix Cr with mild bump, likely from above. Monitor replete K ICD interrogated, no events Keflex for 5-7 day course, leg elevation. PT eval noted, for SNF Dispo to SNF when arrangements made Discussed with patient and nursing.
--- NOTE | 2019-09-03 13:03 | PN ---
Physical Exam: SUBJECTIVE: Patient seen and examined. No acute events overnight. Leg symptoms improving. OBJECTIVE: Vital Signs Period Temp Pulse Resp BP Sys/Farris Pulse Ox Last 24 Hr 97.5 F-97.9 F 65-78 18-20 125-162/62-79 95-95 GENERAL: The patient is awake, alert, and fully oriented, in no acute distress. HEAD: Normal with no signs of trauma. EYES: PERRL, extraocular movements intact, sclera anicteric, conjunctiva clear. No ptosis. ENT: Ears normal, nares patent, oropharynx clear without exudates, moist mucous membranes. NECK: Trachea midline, full range of motion, supple. LUNGS: Breath sounds equal, clear to auscultation bilaterally, no wheezes, no crackles, no accessory muscle use. HEART: Regular rate and rhythm, S1, S2 without murmur, rub or gallop. ABDOMEN: Soft, nontender, nondistended, normoactive bowel sounds, no guarding, no rebound, no hepatosplenomegaly, no masses. EXTREMITIES: + Chronic venous stasis changes bilaterally, + Peripheral edema R>L , improving PSYCH: Normal mood, normal affect. SKIN: Warm, dry, normal turgor, no rashes or lesions noted Laboratory Results - last 24 hr 09/02/19 09/03/19 09/03/19 20:45 05:52 06:58 Sodium 139 Potassium 3.4 L Chloride 104 Carbon Dioxide 29 Anion Gap 6 L BUN 25.1 H Creatinine 1.5 H Est GFR (CKD-EPI)AfAm 53.14 Est GFR (CKD-EPI)NonAf 45.85 POC Glucometer 127 97 Random Glucose 88 Calcium 8.9 09/03/19 10:44 Sodium Potassium Chloride Carbon Dioxide Anion Gap BUN Creatinine Est GFR (CKD-EPI)AfAm Est GFR (CKD-EPI)NonAf POC Glucometer 144 Random Glucose Calcium Active Medications Amiodarone HCl (Cordarone -) 200 mg PO DAILY [facility] Last Admin: 09/03/19 10:15 Dose: 200 mg Atorvastatin Calcium (Lipitor -) 20 mg PO HS [facility] Last Admin: 09/02/19 21:29 Dose: 20 mg Cephalexin HCl (Keflex -) 500 mg PO BID [facility] Last Admin: 09/03/19 10:15 Dose: 500 mg Dipyridamole/Aspirin (Aggrenox -) 1 combo PO BID [facility] Last Admin: 09/02/19 21:32 Dose: 1 combo Dutasteride (Avodart -) 0.5 mg PO DAILY [facility] Last Admin: 09/03/19 10:15 Dose: 0.5 mg Famotidine (Pepcid -) 20 mg PO BID [facility] Last Admin: 09/03/19 10:15 Dose: 20 mg Furosemide (Lasix -) 40 mg PO DAILY [facility] Last Admin: 09/03/19 10:15 Dose: 40 mg Heparin Sodium (Porcine) (Heparin -) 5,000 unit SQ TID [facility] Last Admin: 09/03/19 06:26 Dose: 5,000 unit Hydrochlorothiazide (Hctz -) 12.5 mg PO DAILY [facility] Last Admin: 09/03/19 10:15 Dose: 12.5 mg Insulin Aspart (Novolog Vial Sliding Scale -) 1 vial SQ ACHS [facility]; Protocol Last Admin: 09/03/19 12:25 Dose: Not Given Insulin Detemir (Levemir Vial) 40 units SQ HS [facility] Last Admin: 09/02/19 21:30 Dose: 40 units Metoprolol Tartrate (Lopressor -) 50 mg PO BID [facility] Last Admin: 09/03/19 10:15 Dose: 50 mg Potassium Chloride (K-Dur -) 20 meq PO DAILY [facility] Last Admin: 09/02/19 09:31 Dose: 20 meq Sitagliptin Phosphate (Januvia -) 100 mg PO ACBK [facility] Last Admin: 09/03/19 06:25 Dose: 100 mg Sodium Bicarbonate (Sodium Bicarbonate -) 650 mg PO BID [facility] Last Admin: 09/03/19 10:15 Dose: 650 mg Tamsulosin HCl (Flomax -) 0.4 mg PO DAILY [facility] Last Admin: 09/03/19 10:15 Dose: 0.4 mg Valsartan (Diovan -) 160 mg PO DAILY [facility] Last Admin: 09/03/19 10:15 Dose: 160 mg ASSESSMENT/PLAN: Patient is a 73 year old male with past medical history of non-obstructive CAD, HTN, IDDM, sustained VT with ICD, ischemic stroke (2002),CHF, HLD, chronic venous stasis, presented to the ED due to bilateral lower extremity weakness and multiple falls in the past 2 weeks. #Recurrent falls, likely multifactorial 2/2 DM neuropathy, bilateral LE edema with possible RLE cellulitis, knee arthritis, morbid obesity Unlikely cardiac/neurological in etiology Received lasix IV prn, hold for now and cont to monitor swelling Called [email or web address] for ICD interrogation Cont Keflex 500mg bid for possible RLE cellulitis (Day 3) PT eval Fall risk precautions #Hx of CAD Continue Metoprolol 50mg bid Continue Aspirin/Dipryridamole bid Continue Lipitor 20mg Hs #IDDM Hold home Sitagliptin Cont home levemit 40units HS Insulin sliding scale BGM ACHs #Hypertension Continue home dose Valsartan/HCTZ daily #Hyperlipidemia Continue Lipitor #Hx of HFpEF Continue home dose of Lasix 40mg PO in am #Hx of sustained VT s/p ICD ICD interrogation with [email or web address] in am Cont home Amiodarone 200mg daily #Chronic venous stasis Received IV Lasix 40mg Iv, 20mg IV x1. Hold IV for now Keep legs elevated #FEN No standing fluids Routine BMP monitoring Diabetic/sodium restricted diet #DVT ppx Heparin 5000u sq tid #Dispo Full code Monitor on med surg Visit type - Emergency Visit Emergency Visit: No - New Patient This patient is new to me today: Yes Date on this admission: 09/03/19 - Critical Care Critical Care patient: No ATTENDING PHYSICIAN STATEMENT I saw and evaluated the patient. I reviewed the resident's note and discussed the case with the resident. I agree with the resident's findings and plan as documented. SUBJECTIVE: OBJECTIVE: ASSESSMENT AND PLAN:
[2019-09-03] MEDS: POTASSIUM CHLORIDE TABS 20 MEQ TABLET.ER (FP) PO SCH (13:30)
[2019-09-03] MEDS: ASPIRIN/DIPYRIDAMOLE 25 MG/200 MG CAPSULE PO SCH ×2 (14:22→21:33)
--- NOTE | 2019-09-03 20:25 | EKG ---
Test Reason : Blood Pressure : / mmHG Vent. Rate : 078 BPM Atrial Rate : 078 BPM P-R Int : 000 ms QRS Dur : 090 ms QT Int : 422 ms P-R-T Axes : 000 000 013 degrees QTc Int : 481 ms POOR DATA QUALITY, INTERPRETATION MAY BE ADVERSELY AFFECTED NORMAL SINUS RHYTHM WHEN COMPARED WITH ECG OF 25-NOV-2018 02:45, NONSPECIFIC T WAVE ABNORMALITY HAS REPLACED INVERTED T WAVES IN INFERIOR LEADS Confirmed by ANDRE HILL MD ([id number]) on 09/03/2019 8:25:01 PM Referred By: Confirmed By:ANDRE HILL MD
[2019-09-03] MEDS: ATORVASTATIN CA 20 MG TABLET (FP) PO SCH (21:33)
[2019-09-03] MEDS: INSULIN (LEVEMIR) 100 UNITS/ML UNITS SQ SCH (21:33)
[2019-09-03] MEDS: NYSTATIN POWDER 100,000 UNITS/GM - 15 GM TOPICAL POWDER TP SCH (21:34)
[2019-09-04] MEDS ORDERED: PT OWN MED DRAWER 7, Y5N ONE ×3 (06:01→21:07)
[2019-09-04] MEDS: HEPARIN NA (PORCINE) 5,000 UNITS/ML 1ML VIAL SQ SCH ×3 (06:22→21:47)
[2019-09-04] MEDS: INSULIN SLIDING SCALE (NOVOLOG) 1 VIAL SQ SCH ×4 (06:23→21:48)
[2019-09-04] MEDS: NYSTATIN POWDER 100,000 UNITS/GM - 15 GM TOPICAL POWDER TP SCH ×3 (06:23→21:48)
[2019-09-04] MEDS ORDERED: INSULIN (LEVEMIR) 100 UNITS/ML UNITS SQ ONE (06:27)
[2019-09-04 08:10] LABS: HEMATOCRIT 43.5 % (35.4-49); HEMOGLOBIN 14.1 GM/dL (11.7-16.9); MCHC 32.4 g/dl (32.0-35.9); MEAN CELL VOLUME 83.3 fl (80-96); MEAN PLT VOLUME 8.9 fl (7.5-11.1); PLATELET COUNT 246 K/MM3 (134-434); RBC 5.23 M/mm3 (4.00-5.60); RDW 14.9 % (11.9-15.9); WHITE BLOOD COUNT 8.4 K/mm3 (4.0-10.0)
[2019-09-04 08:38] LABS: BLOOD UREA NITROGEN 29.9 mg/dL (7-18); CALCIUM 8.7 mg/dL (8.5-10.1); CREATININE 1.6 mg/dL (0.55-1.3); POTASSIUM 3.7 mmol/L (3.5-5.1)
[2019-09-04] MEDS: FAMOTIDINE 20 MG TABLET PO SCH ×2 (09:57→21:47)
[2019-09-04] MEDS: CEPHALEXIN MONOHYDRATE 500 MG CAPSULE (UD) PO SCH ×2 (09:59→21:47)
[2019-09-04] MEDS: SODIUM BICARBONATE 650 MG TABLET PO SCH ×2 (09:59→21:47)
[2019-09-04] MEDS: METOPROLOL TARTRATE 50 MG TABLET (FP) PO SCH ×2 (09:59→21:47)
[2019-09-04] MEDS: AMIODARONE HCL 200 MG TABLET (FP) PO SCH (10:00)
[2019-09-04] MEDS: HYDROCHLOROTHIAZIDE 12.5 MG CAPSULE (FP) PO SCH (10:00)
[2019-09-04] MEDS: TAMSULOSIN HCL 0.4 MG CAP PO SCH (10:00)
[2019-09-04] MEDS: FUROSEMIDE 40 MG TABLET (FP) PO SCH (10:00)
[2019-09-04] MEDS: DUTASTERIDE 0.5 MG CAP (FP) PO SCH (10:00)
[2019-09-04] MEDS: VALSARTAN 160 MG TABLET (UD) PO SCH (10:00)
[2019-09-04] MEDS: POTASSIUM CHLORIDE TABS 20 MEQ TABLET.ER (FP) PO SCH (10:00)
[2019-09-04] MEDS: ASPIRIN/DIPYRIDAMOLE 25 MG/200 MG CAPSULE PO SCH ×2 (11:34→21:47)
--- NOTE | 2019-09-04 15:53 | PN ---
Teaching Attending Note Name of Resident: Ronen Salomon ATTENDING PHYSICIAN STATEMENT I saw and evaluated the patient. I reviewed the resident's note and discussed the case with the resident. I agree with the resident's findings and plan as documented with exceptions below. SUBJECTIVE: Patient seen and examined. leg findings improved, no new complaints. OBJECTIVE: Vital Signs Period Temp Pulse Resp BP Sys/Farris Pulse Ox Last 24 Hr 97.8 F-998.0 F 62-75 15-20 124-148/58-78 95-95 Intake & Output 09/01/19 09/02/19 09/03/19 09/04/19 23:59 23:59 23:59 23:59 Intake Total 0 1100 1180 250 Output Total 300 2740 1200 550 Balance -300 -1640 -20 -300 Weight 317 lb 2 oz 310 lb 8 oz 307 lb 307 lb 5 oz General: lying in bed in no acute distress Chest: CTAB, no rales or wheezing Abdomen: soft, obese, NT Extremities: improved leg swelling, almost resolved erythema, improved exam Home Medications Medication Instructions Recorded Amiodarone HCl [Cordarone -] 200 mg PO DAILY 04/01/15 Aspirin/Dipyridamole [Aggrenox -] 1 combo PO BID 04/01/15 Atorvastatin Ca [Lipitor] 20 mg PO HS 04/01/15 Ranitidine HCl [Zantac] 150 mg PO BID 04/01/15 Tamsulosin HCl 0.4 mg PO DAILY 04/01/15 Dutasteride [Avodart] 0.5 mg PO DAILY 05/18/16 Insulin Glargine,Hum.rec.anlog 0 units SQ BID 05/18/16 [Lantus Solostar PEN -] Metoprolol Tartrate 50 mg PO BID 05/18/16 Potassium Chloride 20 meq PO DAILY 05/18/16 Sitagliptin Phosphate [Januvia] 100 mg PO DAILY 05/18/16 Insulin Glargine,Hum.rec.anlog 65 unit SQ HS 11/24/18 [Lantus] Sodium Bicarbonate - 650 mg PO BID 11/24/18 Walker [Ultra-Light Rollator] 1 each MC DAILY #1 each 11/25/18 Furosemide [Lasix -] 40 mg PO DAILY #30 tablet 11/27/18 Valsartan/Hydrochlorothiazide 1 tab DAILY 09/01/19 [Valsartan-Hctz 160-12.5 mg Tab] Active Medications Amiodarone HCl (Cordarone -) 200 mg PO DAILY [facility] Last Admin: 09/04/19 10:00 Dose: 200 mg Atorvastatin Calcium (Lipitor -) 20 mg PO HS [facility] Last Admin: 09/03/19 21:33 Dose: 20 mg Cephalexin HCl (Keflex -) 500 mg PO BID [facility] Last Admin: 09/04/19 09:59 Dose: 500 mg Dipyridamole/Aspirin (Aggrenox -) 1 combo PO BID [facility] Last Admin: 09/04/19 11:34 Dose: 1 combo Dutasteride (Avodart -) 0.5 mg PO DAILY [facility] Last Admin: 09/04/19 10:00 Dose: 0.5 mg Famotidine (Pepcid -) 20 mg PO BID [facility] Last Admin: 09/04/19 09:57 Dose: 20 mg Furosemide (Lasix -) 40 mg PO DAILY [facility] Last Admin: 09/04/19 10:00 Dose: 40 mg Heparin Sodium (Porcine) (Heparin -) 5,000 unit SQ TID [facility] Last Admin: 09/04/19 14:08 Dose: 5,000 unit Hydrochlorothiazide (Hctz -) 12.5 mg PO DAILY [facility] Last Admin: 09/04/19 10:00 Dose: 12.5 mg Insulin Aspart (Novolog Vial Sliding Scale -) 1 vial SQ [facility]; Protocol Last Admin: 09/04/19 11:32 Dose: Not Given Insulin Detemir (Levemir Vial) 40 units SQ HS [facility] Last Admin: 09/03/19 21:33 Dose: 40 units Metoprolol Tartrate (Lopressor -) 50 mg PO BID [facility] Last Admin: 09/04/19 09:59 Dose: 50 mg Nystatin (Nystop Powder -) 1 applic TP TID [facility] Last Admin: 09/04/19 14:09 Dose: 1 applic Potassium Chloride (K-Dur -) 20 meq PO DAILY [facility] Last Admin: 09/04/19 10:00 Dose: 20 meq Sitagliptin Phosphate (Januvia -) 100 mg PO ACBK [facility] Last Admin: 09/04/19 06:22 Dose: 100 mg Sodium Bicarbonate (Sodium Bicarbonate -) 650 mg PO BID [facility] Last Admin: 09/04/19 09:59 Dose: 650 mg Tamsulosin HCl (Flomax -) 0.4 mg PO DAILY [facility] Last Admin: 09/04/19 10:00 Dose: 0.4 mg Valsartan (Diovan -) 160 mg PO DAILY [facility] Last Admin: 09/04/19 10:00 Dose: 160 mg Laboratory Results - last 24 hr 09/02/19 09/03/19 09/03/19 16:46 17:00 20:45 WBC RBC Hgb Hct MCV MCH MCHC RDW Plt Count MPV Sodium Potassium Chloride Carbon Dioxide Anion Gap BUN Creatinine Est GFR (CKD-EPI)AfAm Est GFR (CKD-EPI)NonAf POC Glucometer 121 120 175 Random Glucose Calcium 09/04/19 09/04/19 09/04/19 05:49 07:20 07:20 WBC 8.4 RBC 5.23 Hgb 14.1 Hct 43.5 MCV 83.3 MCH 27.0 MCHC 32.4 RDW 14.9 Plt Count 246 MPV 8.9 Sodium 140 Potassium 3.7 Chloride 104 Carbon Dioxide 29 Anion Gap 7 L BUN 29.9 H Creatinine 1.6 H Est GFR (CKD-EPI)AfAm 49.15 Est GFR (CKD-EPI)NonAf 42.41 POC Glucometer 122 Random Glucose 101 Calcium 8.7 09/04/19 11:27 WBC RBC Hgb Hct MCV MCH MCHC RDW Plt Count MPV Sodium Potassium Chloride Carbon Dioxide Anion Gap BUN Creatinine Est GFR (CKD-EPI)AfAm Est GFR (CKD-EPI)NonAf POC Glucometer 149 Random Glucose Calcium ASSESSMENT AND PLAN: 73 yom with PMhx of HTN, IDDM, CHF, hx sustained VT with ICD, [employer] 2010), ischemic stroke (2002) with no residual deficits, chronic stasis dermatitis/LE edema, neurocardiogenic syncope, prior admission with recurrent falls in 11/2018 comes with falls -Recurrent falls, suspect from LE edema+/- cellulitis/Diabetic neuropathy/knee osteoarthritis/morbid obesity (no concerning s/s to suspect cardiac/ neurological etiology) -IDDM -HTN -h/o diastolic Heart failure with chronic LE edema -Suspected mild LE cellulitis -h/o sustained V s/p ICD ([employer]) -h/o Ischemic CVA 2002 with no residual deficits -Neurocardiogenic syncope Plan: leg swelling improved with IV lasix and keflex continue PO keflex for 5-7 days, leg elevation. PO lasix home regimen. Cr with mild bump, likely from above. Monitor replete K prn ICD interrogated, no events PT eval noted, for SNF Dispo to SNF when arrangements made, likely in 24 hours. Discussed with patient and nursing.
--- NOTE | 2019-09-04 19:10 | PN ---
Physical Exam: SUBJECTIVE: Patient seen and examined in the morning. No acute events overnight. No complaints of chest pain, shortness of breath, abdominal pain, no nausea, vomiting diarrhea. OBJECTIVE: Vital Signs Period Temp Pulse Resp BP Sys/Farris Pulse Ox Last 24 Hr 97.8 F-98.5 F 62-75 15-20 124-148/58-78 95 GENERAL: The patient is awake, alert, and fully oriented, in no acute distress. HEAD: Normal with no signs of trauma. EYES: PERRL, extraocular movements intact, sclera anicteric, conjunctiva clear. NECK: Trachea midline, full range of motion, supple. LUNGS: Breath sounds equal, clear to auscultation bilaterally, no wheezes. HEART: Regular rate and rhythm, S1, S2 without murmur, rub or gallop. ABDOMEN: Soft, nontender, nondistended, normoactive bowel sounds, no guarding, no rebound, no hepatosplenomegaly, no masses. EXTREMITIES: Peripheral edema right >left. Chronic venous stasis changes present. NEUROLOGICAL: Cranial nerves II through XII grossly intact Laboratory Results - last 24 hr 09/02/19 09/03/19 09/04/19 16:46 20:45 05:49 WBC RBC Hgb Hct MCV MCH MCHC RDW Plt Count MPV Sodium Potassium Chloride Carbon Dioxide Anion Gap BUN Creatinine Est GFR (CKD-EPI)AfAm Est GFR (CKD-EPI)NonAf POC Glucometer 121 175 122 Random Glucose Calcium 09/04/19 09/04/19 09/04/19 07:20 07:20 11:27 WBC 8.4 RBC 5.23 Hgb 14.1 Hct 43.5 MCV 83.3 MCH 27.0 MCHC 32.4 RDW 14.9 Plt Count 246 MPV 8.9 Sodium 140 Potassium 3.7 Chloride 104 Carbon Dioxide 29 Anion Gap 7 L BUN 29.9 H Creatinine 1.6 H Est GFR (CKD-EPI)AfAm 49.15 Est GFR (CKD-EPI)NonAf 42.41 POC Glucometer 149 Random Glucose 101 Calcium 8.7 09/04/19 16:45 WBC RBC Hgb Hct MCV MCH MCHC RDW Plt Count MPV Sodium Potassium Chloride Carbon Dioxide Anion Gap BUN Creatinine Est GFR (CKD-EPI)AfAm Est GFR (CKD-EPI)NonAf POC Glucometer 152 Random Glucose Calcium Active Medications Generic Name Dose Route Start Last Admin Trade Name Иван PRN Reason Stop Dose Admin Amiodarone HCl 200 mg 09/02/19 10:00 09/04/19 10:00 Cordarone - PO 200 mg DAILY [facility] Administration Atorvastatin Calcium 20 mg 09/01/19 22:00 09/03/19 21:33 Lipitor - PO 20 mg HS [facility] Administration Cephalexin HCl 500 mg 09/01/19 22:00 09/04/19 09:59 Keflex - PO 500 mg BID [facility] Administration Dipyridamole/Aspirin 1 combo 09/01/19 22:00 09/04/19 11:34 Aggrenox - PO 1 combo BID [facility] Administration Dutasteride 0.5 mg 09/02/19 10:00 09/04/19 10:00 Avodart - PO 0.5 mg DAILY [facility] Administration Famotidine 20 mg 09/01/19 22:00 09/04/19 09:57 Pepcid - PO 20 mg BID [facility] Administration Furosemide 40 mg 09/02/19 10:00 09/04/19 10:00 Lasix - PO 40 mg DAILY [facility] Administration Heparin Sodium (Porcine) 5,000 unit 09/01/19 22:00 09/04/19 14:08 Heparin - SQ 5,000 unit TID [facility] Administration Hydrochlorothiazide 12.5 mg 09/02/19 10:00 09/04/19 10:00 Hctz - PO 12.5 mg DAILY [facility] Administration Insulin Aspart 1 vial 09/01/19 22:00 09/04/19 17:03 Novolog Vial Sliding Scale - SQ 2 units ACHS [facility] Administration Protocol Insulin Detemir 40 units 09/01/19 22:00 09/03/19 21:33 Levemir Vial SQ 40 units HS [facility] Administration Metoprolol Tartrate 50 mg 09/01/19 22:00 09/04/19 09:59 Lopressor - PO 50 mg BID [facility] Administration Nystatin 1 applic 09/03/19 22:00 09/04/19 14:09 Nystop Powder - TP 1 applic TID [facility] Administration Potassium Chloride 20 meq 09/02/19 10:00 09/04/19 10:00 K-Dur - PO 20 meq DAILY [facility] Administration Sitagliptin Phosphate 100 mg 09/03/19 07:00 09/04/19 06:22 Januvia - PO 100 mg ACBK [facility] Administration Sodium Bicarbonate 650 mg 09/01/19 22:00 09/04/19 09:59 Sodium Bicarbonate - PO 650 mg BID [facility] Administration Tamsulosin HCl 0.4 mg 09/02/19 10:00 09/04/19 10:00 Flomax - PO 0.4 mg DAILY [facility] Administration Valsartan 160 mg 09/02/19 10:00 09/04/19 10:00 Diovan - PO 160 mg DAILY [facility] Administration ASSESSMENT/PLAN: 73 M with PMH of non-obstructive CAD, HTN, DM, sustained VT with ICD, ischemic stroke, CHF, HLD, chronic venous stasis, who present with b/l lower extremity weakness and multiple falls in past 2 weeks. 1) Recurrent falls -likely 2/2 to DM neuropathy. Unlikely to be due to cardiac or neurological origin. -Fall risk precautions -ICD interrogation did not show any events -D/C IV lasix 2) Hx of CAD -Metoprolol 50 mg BID -Continue Aspirin/Dipryidamole BID -Continue Lipitor 20 mg HS 3)RLE Cellulitis -Continue Keflex 500 mg BID 4) DM -Levemir 40 units HS -Insulin sliding scale 5)HTN -Continue Valsartan -Continue HCTZ F: Oral hydration E: BMP monitoring N: Diabetic sodium restricted diet DVT: Heparin 5000 unit SQ TID Dispo: Discharge pending SNF placement, as per PT. Visit type - Emergency Visit Emergency Visit: Yes ED Registration Date: 09/02/19 Care time: The patient presented to the Emergency Department on the above date and was hospitalized for further evaluation of their emergent condition. - New Patient This patient is new to me today: Yes Date on this admission: 09/04/19 - Critical Care Critical Care patient: No ATTENDING PHYSICIAN STATEMENT I saw and evaluated the patient. I reviewed the resident's note and discussed the case with the resident. I agree with the resident's findings and plan as documented. SUBJECTIVE: OBJECTIVE: ASSESSMENT AND PLAN:
[2019-09-04] MEDS: INSULIN (LEVEMIR) 100 UNITS/ML UNITS SQ SCH (21:47)
[2019-09-04] MEDS: ATORVASTATIN CA 20 MG TABLET (FP) PO SCH (21:47)
[2019-09-05] MEDS: HEPARIN NA (PORCINE) 5,000 UNITS/ML 1ML VIAL SQ SCH (06:26)
[2019-09-05] MEDS: NYSTATIN POWDER 100,000 UNITS/GM - 15 GM TOPICAL POWDER TP SCH (06:26)
[2019-09-05] MEDS: INSULIN SLIDING SCALE (NOVOLOG) 1 VIAL SQ SCH ×2 (06:29→13:34)
[2019-09-05] MEDS: AMIODARONE HCL 200 MG TABLET (FP) PO SCH (09:33)
[2019-09-05] MEDS: POTASSIUM CHLORIDE TABS 20 MEQ TABLET.ER (FP) PO SCH (09:33)
[2019-09-05] MEDS: FUROSEMIDE 40 MG TABLET (FP) PO SCH (09:33)
[2019-09-05] MEDS: DUTASTERIDE 0.5 MG CAP (FP) PO SCH (09:34)
[2019-09-05] MEDS: TAMSULOSIN HCL 0.4 MG CAP PO SCH (09:34)
[2019-09-05] MEDS: FAMOTIDINE 20 MG TABLET PO SCH (09:34)
[2019-09-05] MEDS: SODIUM BICARBONATE 650 MG TABLET PO SCH (09:34)
[2019-09-05] MEDS: HYDROCHLOROTHIAZIDE 12.5 MG CAPSULE (FP) PO SCH (09:34)
[2019-09-05] MEDS: VALSARTAN 160 MG TABLET (UD) PO SCH (09:34)
[2019-09-05] MEDS: CEPHALEXIN MONOHYDRATE 500 MG CAPSULE (UD) PO SCH (09:34)
[2019-09-05] MEDS: METOPROLOL TARTRATE 50 MG TABLET (FP) PO SCH (09:34)
[2019-09-05] MEDS: ASPIRIN/DIPYRIDAMOLE 25 MG/200 MG CAPSULE PO SCH (09:34)
[2019-09-05 12:07] VITALS: PULSE 60
[2019-09-05 12:47] VITALS: BP 143/70; TEMP 97.9
--- NOTE | 2019-09-05 13:46 | DS ---
Physical Exam: SUBJECTIVE: Patient seen and examined in the morning. No acute events overnight. No chest pain, shortness of breath, abdominal pain, no nausea, vomiting, fever. OBJECTIVE: Vital Signs Period Temp Pulse Resp BP Sys/Farris Pulse Ox Last 24 Hr 97.6 F-98.5 F 60-69 15-20 136-148/67-78 PHYSICAL EXAM GENERAL: The patient is awake, alert, and fully oriented, in no acute distress. HEAD: Normal with no signs of trauma. EYES: PERRL, extraocular movements intact, sclera anicteric, conjunctiva clear. NECK: Trachea midline, full range of motion, supple. LUNGS: Breath sounds equal, clear to auscultation bilaterally, no wheezes. HEART: Regular rate and rhythm, S1, S2 without murmur, rub or gallop. ABDOMEN: Soft, nontender, nondistended, normoactive bowel sounds, no guarding, no rebound, no hepatosplenomegaly, no masses. EXTREMITIES: Peripheral edema right >left. Chronic venous stasis changes present. Ulcers have pus but no blood. NEUROLOGICAL: Cranial nerves II through XII grossly intact. LABS Laboratory Results - last 24 hr 09/04/19 09/04/19 09/05/19 16:45 21:37 06:29 POC Glucometer 152 148 122 09/05/19 11:39 POC Glucometer 120 HOSPITAL COURSE: Date of Admission:09/02/19 Date of Discharge: 09/05/19 73 M with PMH of non-obstructive CAD, HTN, DM, sustained VT with ICD, ischemic stroke, CHF, HLD, chronic venous stasis, who present with b/l lower extremity weakness and multiple falls in past 2 weeks. Cardiac and neurologic causes for weakness were unlikely. Patient had wounds cultured,pending results. Patient will take Keflex 500 mg PO BID for empiric coverage for 10 days.Will follow up with primary care physician to check renal function. Will restart all home medications after discharge. Relevant imaging done this stay: Chest X-Ray: 2 views of the chest reveal clear well aerated lungs, normal mediastinum, left-sided pacemaker, sharp angles, intact soft tissues and degenerative changes with wedging. A gross fracture is not seen. Since 11/24/2018 there is no change of an adverse nature. Left Knee X-Ray: 2 views of the left knee reveal osteoarthritic changes but no sign of fracture or subluxation no sign of blastic or lytic changes. Swelling, foreign body or soft tissue is not seen. There is no change since 11/24/2018. If symptoms persist, further imaging and orthopedic consultation may be of help. Right Knee X-Ray:.2 views of the right knee reveal osteoarthritic changes with some loss of bone density and vascular calcifications. An acute process is not seen. Since 11/24/2018, there is no change of an adverse nature. If symptoms persist on either side, then further imaging and orthopedic consultation may be of help Hip X-Ray: . Single AP view of the pelvis reveals prominent soft tissues but no sign of fracture or subluxation and no sign of blastic or lytic changes. There is a nonspecific bowel pattern. The SI joints are patent. If symptoms persist, further imaging may be of help. Impression: No acute pelvic pathology. Excessive soft tissues. Cervical CT Spine: Cervical spine CT without contrast. Clinical information: fall from standing. Multiplanar imaging was performed. No fracture or posttraumatic malalignment is seen. Multilevel degenerative disc and facet joint changes are noted. 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 The perivertebral soft tissues demonstrate no obvious pathology. Impression: No fracture is identified. Head CT: No CT evidence of acute intracranial pathology. Chronic left basal ganglia/frontal jasso radiata infarct. There has been no definite interval change in comparison to a prior CT study of 01/28/2019. Minutes to complete discharge: 35 Discharge Summary Problems reviewed: Yes Reason For Visit: RECURRENT FALLS , UNABLE TO WALK Condition: Improved - Instructions Diet, Activity, Other Instructions: You were admitted to the hospital due to weakness of your legs and multiple falls. We interrogated your ICD, and it did not show you had any events. We did X-Rays to check for fractures and those came out negative. We treated your chronic ulcers with antibiotics, and you will continue them for 10 more days. We have cultured your ulcers, we will call you with your results if they are positive. For your chronic ulcers please take: Keflex ,500 mg, by mouth twice a day for 10 days. Take all your home medications as directed. Please follow up with within 1 week. Repeat Blood work (BMP) on Wednesday with Dr. Leos to check your kidney function ( creatinine). Return to the Emergency Department if you have chest pain, shortness of breath, abdominal pain, fevers, nausea,vomiting or worsening of your symptoms. Referrals: Marlo Leos MD [Primary Care Provider] - 1 Week Disposition: [facility] - Home Medications Comprehensive Discharge Medication List: Ambulatory Orders Amiodarone HCl [Cordarone -] 200 mg PO DAILY 04/01/15 Aspirin/Dipyridamole [Aggrenox -] 1 combo PO BID 04/01/15 Atorvastatin Ca [Lipitor] 20 mg PO HS 04/01/15 Ranitidine HCl [Zantac] 150 mg PO BID 04/01/15 Tamsulosin HCl 0.4 mg PO DAILY 04/01/15 Dutasteride [Avodart] 0.5 mg PO DAILY 05/18/16 Metoprolol Tartrate 50 mg PO BID 05/18/16 Potassium Chloride 20 meq PO DAILY 05/18/16 Sitagliptin Phosphate [Januvia] 100 mg PO DAILY 05/18/16 Insulin Glargine,Hum.rec.anlog [Lantus] 65 unit SQ HS 11/24/18 Sodium Bicarbonate - 650 mg PO BID 11/24/18 Walker [Ultra-Light Rollator] 1 each MC DAILY #1 each 11/25/18 Furosemide [Lasix -] 40 mg PO DAILY #30 tablet 11/27/18 Valsartan/Hydrochlorothiazide [Valsartan-Hctz 160-12.5 mg Tab] 1 tab DAILY 09/01 Cephalexin Monohydrate [Keflex -] 500 mg PO BID #20 capsule 09/05/19 This patient is new to me today: No Emergency Visit: Yes ED Registration Date: 09/02/19 Care time: The patient presented to the Emergency Department on the above date and was hospitalized for further evaluation of their emergent condition. Critical Care patient: No - Discharge Referral Referred to [facility] Med [facility] No ATTENDING PHYSICIAN STATEMENT I saw and evaluated the patient. I reviewed the resident's note and discussed the case with the resident. I agree with the resident's findings and plan as documented. SUBJECTIVE: OBJECTIVE: ASSESSMENT AND PLAN:
--- NOTE | 2019-09-05 18:46 | PN ---
Teaching Attending Note Name of Resident: Ronen Salomon ATTENDING PHYSICIAN STATEMENT I saw and evaluated the patient. I reviewed the resident's note and discussed the case with the resident. I agree with the resident's findings and plan as documented. SUBJECTIVE: Feeling better, still unsteady on his feet. No fever/chills. no headache/lightheadedness/CP/palpitations. OBJECTIVE: Afebrle Hemodynamically Stable. Comfortable. Last Vital Signs Temp Pulse Resp BP Pulse Ox 97.9 F 60 19 143/70 95 09/05/19 12:46 09/05/19 12:46 09/05/19 12:46 09/05/19 12:46 09/03/19 21:00 HEENT - Atraumatic, Normocephalic. Heart - S1, s2, RRR Lungs - clear to auscultation Abdomen - Soft, non-tender. Bowel Sounds normal. Extremities - bilateral LE erythema/edema ++, venous stasis, small purulent ulcer dorsal aspect LLE/cho and medial aspect RLE. Laboratory Tests 09/01/19 09/01/19 09/01/19 13:44 14:00 14:00 WBC 9.6 RBC 5.27 Hgb 14.5 Hct 44.0 MCV 83.5 MCH 27.4 MCHC 32.8 RDW 14.9 Plt Count 214 MPV 8.5 Absolute Neuts (auto) 6.3 Neutrophils % 65.7 Lymphocytes % 21.1 Monocytes % 10.0 Eosinophils % 2.3 Basophils % 0.9 Nucleated RBC % 0 Sodium 139 Potassium 3.8 Chloride 107 Carbon Dioxide 30 Anion Gap 3 L BUN 20.0 H Creatinine 1.4 H Est GFR (CKD-EPI)AfAm 57.76 Est GFR (CKD-EPI)NonAf 49.84 POC Glucometer 117 Random Glucose 105 Hemoglobin A1c % Calcium 8.6 Phosphorus Magnesium 2.1 Total Bilirubin 0.5 AST 11 L ALT 19 Alkaline Phosphatase 104 Troponin I < 0.02 B-Natriuretic Peptide 322.6 H Total Protein 6.4 Albumin 3.3 L TSH 1.18 Urine Color Urine Appearance Urine pH Ur Specific [place] Urine Protein Urine Glucose (UA) Urine Ketones Urine Blood Urine Nitrite Urine Bilirubin Urine Urobilinogen Ur Leukocyte Esterase 09/01/19 09/01/19 09/02/19 16:21 23:10 06:35 WBC RBC Hgb Hct MCV MCH MCHC RDW Plt Count MPV Absolute Neuts (auto) Neutrophils % Lymphocytes % Monocytes % Eosinophils % Basophils % Nucleated RBC % Sodium 141 Potassium 3.8 Chloride 106 Carbon Dioxide 28 Anion Gap 6 L BUN 20.8 H Creatinine 1.3 Est GFR (CKD-EPI)AfAm 63.18 Est GFR (CKD-EPI)NonAf 54.51 POC Glucometer 117 Random Glucose 78 Hemoglobin A1c % Calcium 8.4 L Phosphorus 3.1 Magnesium 2.2 Total Bilirubin AST ALT Alkaline Phosphatase Troponin I B-Natriuretic Peptide Total Protein Albumin TSH Urine Color Yellow Urine Appearance Clear Urine pH 7.0 Ur Specific [place] 1.010 Urine Protein Negative Urine Glucose (UA) Negative Urine Ketones Negative Urine Blood Negative Urine Nitrite Negative Urine Bilirubin Negative Urine Urobilinogen 0.2 Ur Leukocyte Esterase Negative 09/02/19 09/02/19 09/02/19 06:35 06:51 11:04 WBC RBC Hgb Hct MCV MCH MCHC RDW Plt Count MPV Absolute Neuts (auto) Neutrophils % Lymphocytes % Monocytes % Eosinophils % Basophils % Nucleated RBC % Sodium Potassium Chloride Carbon Dioxide Anion Gap BUN Creatinine Est GFR (CKD-EPI)AfAm Est GFR (CKD-EPI)NonAf POC Glucometer 89 100 Random Glucose Hemoglobin A1c % 7.5 H Calcium Phosphorus Magnesium Total Bilirubin AST ALT Alkaline Phosphatase Troponin I B-Natriuretic Peptide Total Protein Albumin TSH Urine Color Urine Appearance Urine pH Ur Specific [place] Urine Protein Urine Glucose (UA) Urine Ketones Urine Blood Urine Nitrite Urine Bilirubin Urine Urobilinogen Ur Leukocyte Esterase 09/02/19 09/02/19 09/03/19 16:46 20:45 05:52 WBC RBC Hgb Hct MCV MCH MCHC RDW Plt Count MPV Absolute Neuts (auto) Neutrophils % Lymphocytes % Monocytes % Eosinophils % Basophils % Nucleated RBC % Sodium Potassium Chloride Carbon Dioxide Anion Gap BUN Creatinine Est GFR (CKD-EPI)AfAm Est GFR (CKD-EPI)NonAf POC Glucometer 121 127 97 Random Glucose Hemoglobin A1c % Calcium Phosphorus Magnesium Total Bilirubin AST ALT Alkaline Phosphatase Troponin I B-Natriuretic Peptide Total Protein Albumin TSH Urine Color Urine Appearance Urine pH Ur Specific [place] Urine Protein Urine Glucose (UA) Urine Ketones Urine Blood Urine Nitrite Urine Bilirubin Urine Urobilinogen Ur Leukocyte Esterase 09/03/19 09/03/19 09/03/19 06:58 10:44 17:00 WBC RBC Hgb Hct MCV MCH MCHC RDW Plt Count MPV Absolute Neuts (auto) Neutrophils % Lymphocytes % Monocytes % Eosinophils % Basophils % Nucleated RBC % Sodium 139 Potassium 3.4 L Chloride 104 Carbon Dioxide 29 Anion Gap 6 L BUN 25.1 H Creatinine 1.5 H Est GFR (CKD-EPI)AfAm 53.14 Est GFR (CKD-EPI)NonAf 45.85 POC Glucometer 144 120 Random Glucose 88 Hemoglobin A1c % Calcium 8.9 Phosphorus Magnesium Total Bilirubin AST ALT Alkaline Phosphatase Troponin I B-Natriuretic Peptide Total Protein Albumin TSH Urine Color Urine Appearance Urine pH Ur Specific [place] Urine Protein Urine Glucose (UA) Urine Ketones Urine Blood Urine Nitrite Urine Bilirubin Urine Urobilinogen Ur Leukocyte Esterase 09/03/19 09/04/19 09/04/19 20:45 05:49 07:20 WBC 8.4 RBC 5.23 Hgb 14.1 Hct 43.5 MCV 83.3 MCH 27.0 MCHC 32.4 RDW 14.9 Plt Count 246 MPV 8.9 Absolute Neuts (auto) Neutrophils % Lymphocytes % Monocytes % Eosinophils % Basophils % Nucleated RBC % Sodium Potassium Chloride Carbon Dioxide Anion Gap BUN Creatinine Est GFR (CKD-EPI)AfAm Est GFR (CKD-EPI)NonAf POC Glucometer 175 122 Random Glucose Hemoglobin A1c % Calcium Phosphorus Magnesium Total Bilirubin AST ALT Alkaline Phosphatase Troponin I B-Natriuretic Peptide Total Protein Albumin TSH Urine Color Urine Appearance Urine pH Ur Specific [place] Urine Protein Urine Glucose (UA) Urine Ketones Urine Blood Urine Nitrite Urine Bilirubin Urine Urobilinogen Ur Leukocyte Esterase 09/04/19 09/04/19 09/04/19 07:20 11:27 16:45 WBC RBC Hgb Hct MCV MCH MCHC RDW Plt Count MPV Absolute Neuts (auto) Neutrophils % Lymphocytes % Monocytes % Eosinophils % Basophils % Nucleated RBC % Sodium 140 Potassium 3.7 Chloride 104 Carbon Dioxide 29 Anion Gap 7 L BUN 29.9 H Creatinine 1.6 H Est GFR (CKD-EPI)AfAm 49.15 Est GFR (CKD-EPI)NonAf 42.41 POC Glucometer 149 152 Random Glucose 101 Hemoglobin A1c % Calcium 8.7 Phosphorus Magnesium Total Bilirubin AST ALT Alkaline Phosphatase Troponin I B-Natriuretic Peptide Total Protein Albumin TSH Urine Color Urine Appearance Urine pH Ur Specific [place] Urine Protein Urine Glucose (UA) Urine Ketones Urine Blood Urine Nitrite Urine Bilirubin Urine Urobilinogen Ur Leukocyte Esterase 09/04/19 09/05/19 09/05/19 21:37 06:29 11:39 WBC RBC Hgb Hct MCV MCH MCHC RDW Plt Count MPV Absolute Neuts (auto) Neutrophils % Lymphocytes % Monocytes % Eosinophils % Basophils % Nucleated RBC % Sodium Potassium Chloride Carbon Dioxide Anion Gap BUN Creatinine Est GFR (CKD-EPI)AfAm Est GFR (CKD-EPI)NonAf POC Glucometer 148 122 120 Random Glucose Hemoglobin A1c % Calcium Phosphorus Magnesium Total Bilirubin AST ALT Alkaline Phosphatase Troponin I B-Natriuretic Peptide Total Protein Albumin TSH Urine Color Urine Appearance Urine pH Ur Specific [place] Urine Protein Urine Glucose (UA) Urine Ketones Urine Blood Urine Nitrite Urine Bilirubin Urine Urobilinogen Ur Leukocyte Esterase Discharge Medications Medication Instructions Recorded Amiodarone HCl [Cordarone -] 200 mg PO DAILY 04/01/15 Aspirin/Dipyridamole [Aggrenox -] 1 combo PO BID 04/01/15 Atorvastatin Ca [Lipitor] 20 mg PO HS 04/01/15 Ranitidine HCl [Zantac] 150 mg PO BID 04/01/15 Tamsulosin HCl 0.4 mg PO DAILY 04/01/15 Dutasteride [Avodart] 0.5 mg PO DAILY 05/18/16 Metoprolol Tartrate 50 mg PO BID 05/18/16 Potassium Chloride 20 meq PO DAILY 05/18/16 Sitagliptin Phosphate [Januvia] 100 mg PO DAILY 05/18/16 Insulin Glargine,Hum.rec.anlog 65 unit SQ HS 11/24/18 [Lantus] Sodium Bicarbonate - 650 mg PO BID 11/24/18 Walker [Ultra-Light Rollator] 1 each MC DAILY #1 each 11/25/18 Furosemide [Lasix -] 40 mg PO DAILY #30 tablet 11/27/18 Valsartan 1 tab DAILY 09/01/19 [Valsartan 160 mg) Cephalexin Monohydrate [Keflex -] 500 mg PO BID #20 capsule 09/05/19 ASSESSMENT AND PLAN: 73 year old male with history of HTN, DM 2, CAD, Hx Vtach s/p AICD, Hx CVA 2002 wit no residual deficits, Chronic venous insufficiency/stasis dermatitis presents with LE weakness and falls over the past 2 weeks, found to have LE edema and venous stasis ulcers, one on each leg. He was treated with IV lasix diuresis for LE fluid retention and Keflex for small draining ulcers without abscess on each leg (L more purulent than R). He remained afebrile, hemodynamically Stable. His ICD was interrogated to exclude other causes for fall episodes, with no adverse findings. He was evaluated y PT and recommended for SNF placement, where he will continue Abx therapy for 10 days. Follow up with PCP Dr. Leos.
== END 2019-09-05 13:38 | DRG 74 ==
LOC: JER 13:28 → JERBED 16:28 → J8W 20:55 → OBSVTOIN 09-02 11:27
PROVIDERS: ADMIT Hospitalist
DX: E11.40 Type 2 diabetes mellitus with diabetic neuropathy, unspecified (principal); L03.116 Cellulitis of left lower limb; L03.115 Cellulitis of right lower limb; Z68.42 Body mass index [BMI] 45.0-49.9, adult; I13.0 Hypertensive heart and chronic kidney disease with heart failure and stage 1 through stage 4 chronic kidney disease, or unspecified chronic kidney disease; I50.30 Unspecified diastolic (congestive) heart failure; I25.10 Atherosclerotic heart disease of native coronary artery without angina pectoris; I11.0 Hypertensive heart disease with heart failure; E11.9 Type 2 diabetes mellitus without complications; E78.5 Hyperlipidemia, unspecified; R26.81 Unsteadiness on feet; E66.01 Morbid (severe) obesity due to excess calories; M17.10 Unilateral primary osteoarthritis, unspecified knee; E11.22 Type 2 diabetes mellitus with diabetic chronic kidney disease; N18.2 Chronic kidney disease, stage 2 (mild); R55 Syncope and collapse; R29.6 Repeated falls; Z95.810 Presence of automatic (implantable) cardiac defibrillator; Z86.73 Personal history of transient ischemic attack (TIA), and cerebral infarction without residual deficits
CPT/HCPCS: 36415; 70450-TC; 71046-TC-FY; 72125-TC; 72170-TC-FY; 73560-TC-LT-FY; 73560-TC-RT-FY; 80048; 80053; 81003; 82962; 83036; 83735; 83880; 84100; 84443; 84484; 85025; 85027; 87070; 87186; 87205; 93005; 93010; 97116-GP; 97162-GP; 99285-25; G0378; J1644

== ENCOUNTER 2021-04-28 22:18 | Emergency (ER) | payer OTHER, BC ==
[2021-04-28] MEDS ORDERED: ASPIRIN 81 MG CHEWABLE TABLETS PO ONE (22:22)
[2021-04-28 22:29] VITALS: BMI 42.4
[2021-04-28] MEDS ORDERED: SODIUM CHLORIDE 1,000 ML IV SCH (22:30)
[2021-04-28] MEDS ORDERED: ASPIRIN 81 MG CHEWABLE TABLETS ONE (22:41)
[2021-04-28 22:54] LABS: BASO % 1.4 % (0-2.0); EOS % 1.6 % (0-4.5); HEMATOCRIT 41.6 % (35.4-49); HEMOGLOBIN 13.9 GM/dL (11.7-16.9); LYMPH % 25.1 % (8-40); MCH 28.1 pg (25.7-33.7); MCHC 33.4 g/dl (32.0-35.9); MEAN CELL VOLUME 84.1 fl (80-96); MEAN PLT VOLUME 7.8 fl (7.5-11.1); MONO % 11.7 % (3.8-10.2); NEUT % 60.2 % (42.8-82.8); PLATELET COUNT 240 10^3/uL (134-434); RBC 4.94 M/mm3 (4.00-5.60); RDW 15.2 % (11.9-15.9); WHITE BLOOD COUNT 7.9 K/mm3 (4.0-10.0)
[2021-04-28 23:05] LABS: INR 1.12 (0.83-1.09); PROTHROMBIN TIME (PATIENT) 13.5 SEC (9.7-13.0)
[2021-04-28 23:07] LABS: ACTIVATED PTT 31.8 SECONDS (25.2-36.5)
[2021-04-28 23:09] LABS: CHLORIDE 108 mmol/L (98-107); SODIUM 141 mmol/L (136-145)
[2021-04-28 23:10] VITALS: TEMP 98.3
[2021-04-28 23:11] LABS: ANION GAP 8 MMOL/L (8-16); CALCIUM 8.3 mg/dL (8.5-10.1); CO2 25 mmol/L (21-32); GLUCOSE,RANDOM 240 mg/dL (74-106)
[2021-04-28 23:13] LABS: CHOLESTEROL 151 mg/dL (50-200)
[2021-04-28 23:14] LABS: SGOT/AST 19 U/L (15-37); SGPT/ALT 30 U/L (13-61); TRIGLYCERIDES 81 mg/dL (0-150)
[2021-04-28 23:15] LABS: CREATININE 1.5 mg/dL (0.55-1.3); LDL CHOLESTEROL (ONLY SJRH) 70 mg/dL (5-100)
[2021-04-28 23:16] LABS: BILIRUBIN,TOTAL 0.4 mg/dL (0.2-1); HDL CHOLESTEROL 58 mg/dL (40-60)
[2021-04-28 23:17] LABS: ALK PHOS 103 U/L (45-117)
[2021-04-29 00:47] VITALS: BP 205/92; PULSE 64
== END 2021-04-29 00:48 | disposition short-term general hospital (02) ==
LOC: JER 22:18
DX: I63.9 Cerebral infarction, unspecified (principal)
CPT/HCPCS: 36415; 70450-TC; 70496-TC; 70498-TC; 71045-TC-FY; 80053; 80061; 82550; 83721; 84484; 85025; 85610; 85730; 86850; 86900; 86901; 93005; 93010; 99291

== ENCOUNTER 2021-07-25 16:02 | Inpatient (IN) | payer OTHER, BC ==
[2021-07-25 16:44] VITALS: BMI 34.4
[2021-07-25 18:38] LABS: BASO % 1.1 % (0-2.0); EOS % 2.5 % (0-4.5); HEMATOCRIT 40.6 % (35.4-49); HEMOGLOBIN 13.7 GM/dL (11.7-16.9); LYMPH % 21.5 % (8-40); MCH 28.4 pg (25.7-33.7); MCHC 33.7 g/dl (32.0-35.9); MEAN CELL VOLUME 84.4 fl (80-96); MEAN PLT VOLUME 8.1 fl (7.5-11.1); MONO % 8.3 % (3.8-10.2); NEUT % 66.6 % (42.8-82.8); PLATELET COUNT 294 10^3/uL (134-434); RBC 4.81 M/mm3 (4.00-5.60); RDW 15.1 % (11.9-15.9); WHITE BLOOD COUNT 9.7 K/mm3 (4.0-10.0)
[2021-07-25 18:58] LABS: CHLORIDE 105 mmol/L (98-107); SODIUM 137 mmol/L (136-145)
[2021-07-25 19:00] LABS: ALBUMIN 2.7 g/dl (3.4-5.0); ANION GAP 8 MMOL/L (8-16); CALCIUM 8.1 mg/dL (8.5-10.1); CO2 24 mmol/L (21-32)
[2021-07-25 19:01] LABS: BLOOD UREA NITROGEN 20.3 mg/dL (7-18)
[2021-07-25 19:03] LABS: GLUCOSE,RANDOM 165 mg/dL (74-106); SGPT/ALT 24 U/L (13-61)
[2021-07-25 19:04] LABS: SGOT/AST 28 U/L (15-37)
[2021-07-25 19:05] LABS: BILIRUBIN,TOTAL 0.6 mg/dL (0.2-1); TOT PROT 6.7 g/dl (6.4-8.2)
[2021-07-25 19:06] LABS: ALK PHOS 112 U/L (45-117)
[2021-07-25] MEDS ORDERED: FUROSEMIDE 40 MG/4 ML INJECTABLE VIAL IVPUSH ONE (23:50)
[2021-07-26] MEDS ORDERED: FUROSEMIDE 40 MG/4 ML INJECTABLE VIAL ONE (00:14)
[2021-07-26] MEDS: INSULIN SLIDING SCALE (NOVOLOG) 1 VIAL SQ SCH ×4 (06:44→22:18)
[2021-07-26 08:38] LABS: EOS % 3.8 % (0-4.5); HEMATOCRIT 39.2 % (35.4-49); HEMOGLOBIN 13.4 GM/dL (11.7-16.9); LYMPH % 27.2 % (8-40); MCH 28.9 pg (25.7-33.7); MCHC 34.2 g/dl (32.0-35.9); MEAN CELL VOLUME 84.4 fl (80-96); MEAN PLT VOLUME 8.1 fl (7.5-11.1); MONO % 9.2 % (3.8-10.2); NEUT % 58.8 % (42.8-82.8); PLATELET COUNT 298 10^3/uL (134-434); RBC 4.64 M/mm3 (4.00-5.60); RDW 14.6 % (11.9-15.9); WHITE BLOOD COUNT 9.3 K/mm3 (4.0-10.0)
[2021-07-26 08:55] LABS: ALBUMIN 2.7 g/dl (3.4-5.0); BLOOD UREA NITROGEN 18.8 mg/dL (7-18); CALCIUM 8.5 mg/dL (8.5-10.1)
[2021-07-26 08:58] LABS: PHOSPHOROUS 3.4 mg/dL (2.5-4.9)
[2021-07-26 08:59] LABS: BILIRUBIN,TOTAL 0.5 mg/dL (0.2-1); MAGNESIUM 2.2 mg/dL (1.8-2.4); TOT PROT 6.1 g/dl (6.4-8.2)
[2021-07-26] MEDS: CLOPIDOGREL BISULFATE 75 MG TABLET (FP) PO SCH (09:08)
[2021-07-26] MEDS: LOSARTAN POTASSIUM 25 MG TABLET PO SCH (09:09)
[2021-07-26] MEDS: ENOXAPARIN NA (PORCINE) 40 MG/0.4 ML DISP.SYRIN SQ SCH (09:09)
[2021-07-26] MEDS: ASPIRIN 81 MG CHEWABLE TABLETS PO SCH (09:09)
[2021-07-26] MEDS: TAMSULOSIN HCL 0.4 MG CAP PO SCH (09:09)
[2021-07-26] MEDS ORDERED: FLU VACC QS2021-22(6MOS UP)/PF 60 MCG/0.5 ML SYRINGE IM ONE (10:00)
[2021-07-26] MEDS: POTASSIUM CHLORIDE TABS 20 MEQ TABLET.ER (FP) PO SCH (17:25)
[2021-07-26] MEDS ORDERED: ATORVASTATIN CA 20 MG TABLET (FP) PO SCH (22:00)
[2021-07-26] MEDS: ATORVASTATIN CA 80 MG TABLET (FP) PO SCH (22:15)
[2021-07-26] MEDS: METOPROLOL TARTRATE 25 MG TABLET (FP) PO SCH (22:15)
[2021-07-26] MEDS: SODIUM BICARBONATE 650 MG TABLET PO SCH (22:15)
[2021-07-27] MEDS: INSULIN SLIDING SCALE (NOVOLOG) 1 VIAL SQ SCH ×4 (06:15→21:47)
[2021-07-27 08:43] LABS: EPI CELLS 4 /uL (0-25.1); HYALINE CASTS 1 /uL (0-3.1); PH,URINE 6.5 (5.0-8.0); URINE APPEARANCE CLEAR; URINE BACTERIA 19 /uL (0-1359); URINE BILIRUBIN NEGATIVE (NEGATIVE); URINE COLOR YELLOW; URINE GLUCOSE (UA) NEGATIVE (NEGATIVE); URINE KETONE TRACE (NEGATIVE); URINE LEUK ESTERASE TRACE (NEGATIVE); URINE NITRITE NEGATIVE (NEGATIVE); URINE PROTEIN TRACE (NEGATIVE); URINE RBC 2 /uL (0-23.9); URINE WBC 3 /uL (0-25.8)
[2021-07-27] MEDS: POTASSIUM CHLORIDE TABS 20 MEQ TABLET.ER (FP) PO SCH (10:00)
[2021-07-27] MEDS ORDERED: PATIENT'S OWN MEDICATION (NON-FORMULARY) (Walker [Ultra-Light Rollator] 1 EACH Each) MC SCH (10:00)
[2021-07-27] MEDS: FUROSEMIDE 40 MG TABLET (FP) PO SCH (10:00)
[2021-07-27] MEDS: LOSARTAN POTASSIUM 25 MG TABLET PO SCH (10:00)
[2021-07-27] MEDS: CLOPIDOGREL BISULFATE 75 MG TABLET (FP) PO SCH (10:00)
[2021-07-27] MEDS: TAMSULOSIN HCL 0.4 MG CAP PO SCH (10:00)
[2021-07-27] MEDS: ASPIRIN 81 MG CHEWABLE TABLETS PO SCH (10:01)
[2021-07-27] MEDS: SODIUM BICARBONATE 650 MG TABLET PO SCH ×2 (10:01→21:47)
[2021-07-27] MEDS: METOPROLOL TARTRATE 25 MG TABLET (FP) PO SCH ×2 (10:01→21:47)
[2021-07-27] MEDS: ENOXAPARIN NA (PORCINE) 40 MG/0.4 ML DISP.SYRIN SQ SCH (10:01)
[2021-07-27 16:34] LABS: MAGNESIUM 1.8 mg/dL (1.8-2.4)
[2021-07-27] MEDS: AMINO ACIDS/PROTEIN HYDROLYS 30 ML LIQUID.PKT PO SCH (17:07)
[2021-07-27] MEDS: ATORVASTATIN CA 80 MG TABLET (FP) PO SCH (21:47)
[2021-07-28] MEDS: INSULIN SLIDING SCALE (NOVOLOG) 1 VIAL SQ SCH ×3 (06:15→17:45)
[2021-07-28 07:34] LABS: CALCIUM 8.5 mg/dL (8.5-10.1)
[2021-07-28 07:35] LABS: BLOOD UREA NITROGEN 29.3 mg/dL (7-18)
[2021-07-28 07:38] LABS: CREATININE 1.2 mg/dL (0.55-1.3)
[2021-07-28] MEDS: AMINO ACIDS/PROTEIN HYDROLYS 30 ML LIQUID.PKT PO SCH ×2 (09:50→17:47)
[2021-07-28] MEDS: ENOXAPARIN NA (PORCINE) 40 MG/0.4 ML DISP.SYRIN SQ SCH (09:50)
[2021-07-28] MEDS: METOPROLOL TARTRATE 25 MG TABLET (FP) PO SCH (09:51)
[2021-07-28] MEDS: LOSARTAN POTASSIUM 25 MG TABLET PO SCH (09:51)
[2021-07-28] MEDS: FUROSEMIDE 40 MG TABLET (FP) PO SCH (09:51)
[2021-07-28] MEDS: POTASSIUM CHLORIDE TABS 20 MEQ TABLET.ER (FP) PO SCH (09:51)
[2021-07-28] MEDS: TAMSULOSIN HCL 0.4 MG CAP PO SCH (09:51)
[2021-07-28] MEDS: ASPIRIN 81 MG CHEWABLE TABLETS PO SCH (09:51)
[2021-07-28] MEDS: SODIUM BICARBONATE 650 MG TABLET PO SCH (09:51)
[2021-07-28] MEDS: CLOPIDOGREL BISULFATE 75 MG TABLET (FP) PO SCH (09:51)
[2021-07-28] MEDS ORDERED: MULTIVITAMINS (DAILY MVI) TABLET (FP) PO SCH (10:00)
[2021-07-28 16:08] VITALS: BP 139/67; PULSE 72; TEMP 98.6
== END 2021-07-28 19:30 | disposition home or self-care (01) | DRG 153 ==
LOC: JER 16:02 → JERBED 22:11 → OBSVTOIN 23:45 → J4W 07-26 03:36
PROVIDERS: ADMIT Internal Medicine; ATTEND Internal Medicine
DX: J06.9 Acute upper respiratory infection, unspecified (principal); I69.351 Hemiplegia and hemiparesis following cerebral infarction affecting right dominant side; I50.32 Chronic diastolic (congestive) heart failure; I25.10 Atherosclerotic heart disease of native coronary artery without angina pectoris; R07.89 Other chest pain; Z95.810 Presence of automatic (implantable) cardiac defibrillator; E78.5 Hyperlipidemia, unspecified; I44.0 Atrioventricular block, first degree; E66.9 Obesity, unspecified; Z68.34 Body mass index [BMI] 34.0-34.9, adult; I11.0 Hypertensive heart disease with heart failure; E11.9 Type 2 diabetes mellitus without complications; R07.81 Pleurodynia
CPT/HCPCS: 36415; 71045-TC-FY; 80048; 80053; 80061; 81003; 82550; 82728; 82962; 83036; 83615; 83735; 84100; 84443; 84484; 85025; 85651; 86140; 87804; 87807; 87899; 90686; 93005; 93010; 93306-TC; 93970-TC; 97162-GP; 99285-25; C9803; G0008; G0378; U0003; U0005

== ENCOUNTER 2021-11-20 16:59 | Observation (INO) | payer OTHER, BC ==
[2021-11-20 18:40] LABS: BASO % 0.9 % (0-2.0); EOS % 5.3 % (0-4.5); HEMATOCRIT 39.5 % (35.4-49); HEMOGLOBIN 13.4 GM/dL (11.7-16.9); LYMPH % 25.9 % (8-40); MCH 27.8 pg (25.7-33.7); MCHC 33.9 g/dl (32.0-35.9); MEAN CELL VOLUME 81.9 fl (80-96); MEAN PLT VOLUME 8.1 fl (7.5-11.1); MONO % 8.6 % (3.8-10.2); NEUT % 59.3 % (42.8-82.8); PLATELET COUNT 246 10^3/uL (134-434); RBC 4.83 M/mm3 (4.00-5.60); RDW 14.8 % (11.9-15.9); WHITE BLOOD COUNT 9.3 K/mm3 (4.0-10.0)
[2021-11-20 18:45] LABS: INR 1.3 (0.83-1.09)
[2021-11-20 18:48] LABS: ACTIVATED PTT 34.2 SECONDS (25.2-36.5)
[2021-11-20 18:58] LABS: CALCIUM 8.8 mg/dL (8.5-10.1)
[2021-11-20 18:59] LABS: ALBUMIN 3.2 g/dl (3.4-5.0); BLOOD UREA NITROGEN 27.4 mg/dL (7-18); MAGNESIUM 2.1 mg/dL (1.8-2.4)
[2021-11-20 19:02] LABS: CREATININE 1.1 mg/dL (0.55-1.3); PHOSPHOROUS 2.9 mg/dL (2.5-4.9)
[2021-11-20 19:03] LABS: BILIRUBIN,TOTAL 0.6 mg/dL (0.2-1); TOT PROT 6.4 g/dl (6.4-8.2)
[2021-11-20 20:30] LABS: EPI CELLS 4 /uL (0-25.1); HYALINE CASTS 1 /uL (0-3.1); URINE APPEARANCE CLOUDY; URINE BACTERIA 1 /uL (0-1359); URINE BILIRUBIN NEGATIVE (NEGATIVE); URINE COLOR YELLOW; URINE GLUCOSE (UA) NEGATIVE (NEGATIVE); URINE KETONE TRACE (NEGATIVE); URINE LEUK ESTERASE NEGATIVE (NEGATIVE); URINE NITRITE NEGATIVE (NEGATIVE); URINE PROTEIN 1+ (NEGATIVE); URINE RBC 1 /uL (0-23.9); URINE WBC 4 /uL (0-25.8)
[2021-11-21 06:05] VITALS: BMI 35.2
[2021-11-21] MEDS ORDERED: TAMSULOSIN HCL 0.4 MG CAP PO SCH (08:30)
[2021-11-21] MEDS: ASPIRIN 81 MG CHEWABLE TABLETS PO SCH (09:27)
[2021-11-21] MEDS: METOPROLOL TARTRATE 25 MG TABLET (FP) PO SCH ×2 (09:27→21:40)
[2021-11-21] MEDS: LOSARTAN POTASSIUM 25 MG TABLET PO SCH (09:27)
[2021-11-21] MEDS: amLODIPine BESYLATE 10 MG TABLET (FP) PO SCH (09:27)
[2021-11-21] MEDS ORDERED: FUROSEMIDE 40 MG TABLET (FP) PO SCH (10:00)
[2021-11-21 10:14] LABS: BASO % 0.8 % (0-2.0); EOS % 7.1 % (0-4.5); HEMATOCRIT 40.3 % (35.4-49); HEMOGLOBIN 13.1 GM/dL (11.7-16.9); LYMPH % 23.7 % (8-40); MCH 26.9 pg (25.7-33.7); MCHC 32.6 g/dl (32.0-35.9); MEAN CELL VOLUME 82.5 fl (80-96); MEAN PLT VOLUME 8.5 fl (7.5-11.1); NEUT % 60.4 % (42.8-82.8); PLATELET COUNT 253 10^3/uL (134-434); RBC 4.88 M/mm3 (4.00-5.60); RDW 14.6 % (11.9-15.9); WHITE BLOOD COUNT 9.5 K/mm3 (4.0-10.0)
[2021-11-21] MEDS: CLOPIDOGREL BISULFATE 75 MG TABLET (FP) PO SCH (10:20)
[2021-11-21] MEDS: ENOXAPARIN NA (PORCINE) 40 MG/0.4 ML DISP.SYRIN SQ SCH (10:20)
[2021-11-21 10:34] LABS: ALBUMIN 2.9 g/dl (3.4-5.0); BLOOD UREA NITROGEN 18.2 mg/dL (7-18); CALCIUM 8.3 mg/dL (8.5-10.1); MAGNESIUM 2.1 mg/dL (1.8-2.4)
[2021-11-21 10:37] LABS: CREATININE 0.8 mg/dL (0.55-1.3); PHOSPHOROUS 2.5 mg/dL (2.5-4.9)
[2021-11-21 10:39] LABS: BILIRUBIN,TOTAL 0.6 mg/dL (0.2-1); TOT PROT 5.9 g/dl (6.4-8.2)
[2021-11-21] MEDS: ATORVASTATIN CA 80 MG TABLET (FP) PO SCH (21:40)
[2021-11-22] MEDS: ENOXAPARIN NA (PORCINE) 40 MG/0.4 ML DISP.SYRIN SQ SCH (09:41)
[2021-11-22] MEDS: LOSARTAN POTASSIUM 25 MG TABLET PO SCH (09:42)
[2021-11-22] MEDS: FUROSEMIDE 40 MG TABLET (FP) PO SCH (09:42)
[2021-11-22] MEDS: METOPROLOL TARTRATE 25 MG TABLET (FP) PO SCH ×2 (09:42→21:11)
[2021-11-22] MEDS: ASPIRIN 81 MG CHEWABLE TABLETS PO SCH (09:42)
[2021-11-22] MEDS: CLOPIDOGREL BISULFATE 75 MG TABLET (FP) PO SCH (09:42)
[2021-11-22] MEDS: amLODIPine BESYLATE 10 MG TABLET (FP) PO SCH (09:42)
[2021-11-22 09:46] LABS: BASO % 0.8 % (0-2.0); EOS % 5.6 % (0-4.5); HEMATOCRIT 39.1 % (35.4-49); HEMOGLOBIN 12.8 GM/dL (11.7-16.9); LYMPH % 32.3 % (8-40); MCHC 32.7 g/dl (32.0-35.9); MEAN CELL VOLUME 82.6 fl (80-96); MEAN PLT VOLUME 8.7 fl (7.5-11.1); MONO % 8.4 % (3.8-10.2); NEUT % 52.9 % (42.8-82.8); PLATELET COUNT 263 10^3/uL (134-434); RBC 4.74 M/mm3 (4.00-5.60); RDW 14.7 % (11.9-15.9); WHITE BLOOD COUNT 8.5 K/mm3 (4.0-10.0)
[2021-11-22 10:04] LABS: CALCIUM 8.5 mg/dL (8.5-10.1)
[2021-11-22 10:05] LABS: BLOOD UREA NITROGEN 33.1 mg/dL (7-18)
[2021-11-22 10:08] LABS: CREATININE 1.4 mg/dL (0.55-1.3)
[2021-11-22] MEDS: TAMSULOSIN HCL 0.4 MG CAP PO SCH (21:11)
[2021-11-22] MEDS: ATORVASTATIN CA 80 MG TABLET (FP) PO SCH (21:11)
[2021-11-23] MEDS: METOPROLOL TARTRATE 25 MG TABLET (FP) PO SCH ×2 (09:02→21:15)
[2021-11-23] MEDS: CLOPIDOGREL BISULFATE 75 MG TABLET (FP) PO SCH (09:02)
[2021-11-23] MEDS: ASPIRIN 81 MG CHEWABLE TABLETS PO SCH (09:02)
[2021-11-23] MEDS: LOSARTAN POTASSIUM 25 MG TABLET PO SCH (09:02)
[2021-11-23] MEDS: amLODIPine BESYLATE 10 MG TABLET (FP) PO SCH (09:02)
[2021-11-23] MEDS: ENOXAPARIN NA (PORCINE) 40 MG/0.4 ML DISP.SYRIN SQ SCH (09:02)
[2021-11-23] MEDS: TAMSULOSIN HCL 0.4 MG CAP PO SCH (09:02)
[2021-11-23] MEDS: FUROSEMIDE 40 MG TABLET (FP) PO SCH (09:02)
[2021-11-23] MEDS: ATORVASTATIN CA 80 MG TABLET (FP) PO SCH (21:15)
[2021-11-24] MEDS: METOPROLOL TARTRATE 25 MG TABLET (FP) PO SCH ×2 (11:03→22:04)
[2021-11-24] MEDS: TAMSULOSIN HCL 0.4 MG CAP PO SCH (11:03)
[2021-11-24] MEDS: ENOXAPARIN NA (PORCINE) 40 MG/0.4 ML DISP.SYRIN SQ SCH (11:08)
[2021-11-24] MEDS: amLODIPine BESYLATE 10 MG TABLET (FP) PO SCH (11:08)
[2021-11-24] MEDS: CLOPIDOGREL BISULFATE 75 MG TABLET (FP) PO SCH (11:08)
[2021-11-24] MEDS: ASPIRIN 81 MG CHEWABLE TABLETS PO SCH (11:08)
[2021-11-24] MEDS: LOSARTAN POTASSIUM 25 MG TABLET PO SCH (11:09)
[2021-11-24] MEDS: FUROSEMIDE 40 MG TABLET (FP) PO SCH (11:09)
[2021-11-24] MEDS ORDERED: SODIUM CHLORIDE 500 ML IV STA (17:13)
[2021-11-24 20:54] LABS: URINE APPEARANCE CLEAR; URINE BILIRUBIN NEGATIVE (NEGATIVE); URINE COLOR YELLOW; URINE GLUCOSE (UA) NEGATIVE (NEGATIVE); URINE KETONE NEGATIVE (NEGATIVE); URINE LEUK ESTERASE NEGATIVE (NEGATIVE); URINE NITRITE NEGATIVE (NEGATIVE); URINE PROTEIN NEGATIVE (NEGATIVE)
[2021-11-24] MEDS: ATORVASTATIN CA 80 MG TABLET (FP) PO SCH (22:04)
[2021-11-25 08:25] LABS: BASO % 0.8 % (0-2.0); EOS % 6.9 % (0-4.5); HEMATOCRIT 38.4 % (35.4-49); HEMOGLOBIN 12.5 GM/dL (11.7-16.9); LYMPH % 34.5 % (8-40); MCHC 32.6 g/dl (32.0-35.9); MEAN CELL VOLUME 82.8 fl (80-96); MEAN PLT VOLUME 8.5 fl (7.5-11.1); MONO % 8.5 % (3.8-10.2); NEUT % 49.3 % (42.8-82.8); PLATELET COUNT 271 10^3/uL (134-434); RBC 4.64 M/mm3 (4.00-5.60); RDW 14.8 % (11.9-15.9); WHITE BLOOD COUNT 7.4 K/mm3 (4.0-10.0)
[2021-11-25 08:47] LABS: ALBUMIN 2.9 g/dl (3.4-5.0); BLOOD UREA NITROGEN 27.5 mg/dL (7-18)
[2021-11-25 08:48] LABS: CALCIUM 8.5 mg/dL (8.5-10.1)
[2021-11-25 08:51] LABS: BILIRUBIN,TOTAL 0.5 mg/dL (0.2-1); TOT PROT 5.8 g/dl (6.4-8.2)
[2021-11-25] MEDS: ENOXAPARIN NA (PORCINE) 40 MG/0.4 ML DISP.SYRIN SQ SCH (09:02)
[2021-11-25] MEDS: TAMSULOSIN HCL 0.4 MG CAP PO SCH (09:02)
[2021-11-25] MEDS: LOSARTAN POTASSIUM 25 MG TABLET PO SCH (09:02)
[2021-11-25] MEDS: ASPIRIN 81 MG CHEWABLE TABLETS PO SCH (09:02)
[2021-11-25] MEDS: amLODIPine BESYLATE 10 MG TABLET (FP) PO SCH (09:02)
[2021-11-25] MEDS: CLOPIDOGREL BISULFATE 75 MG TABLET (FP) PO SCH (09:02)
[2021-11-25] MEDS: METOPROLOL TARTRATE 25 MG TABLET (FP) PO SCH (09:02)
[2021-11-25 14:39] VITALS: BP 112/54; PULSE 65; TEMP 98.4
== END 2021-11-25 16:38 ==
LOC: JER 16:59 → JERBED 23:41 → INTOOBSV 23:41 → UNDOADMOB 23:41 → J6S 11-21 05:26 → JERBED 11-21 05:26 → J6S 11-21 06:55
PROVIDERS: ADMIT Hospitalist
PROC: 3E023GC Introduction of Other Therapeutic Substance into Muscle, Percutaneous Approach (ICD-10-PCS; principal; 2021-11-21)
PROC: 3E0337Z Introduction of Electrolytic and Water Balance Substance into Peripheral Vein, Percutaneous Approach (ICD-10-PCS; 2021-11-21)
DX: I25.10 Atherosclerotic heart disease of native coronary artery without angina pectoris (principal); Z95.810 Presence of automatic (implantable) cardiac defibrillator; R26.81 Unsteadiness on feet; I11.9 Hypertensive heart disease without heart failure; Z99.3 Dependence on wheelchair; E11.9 Type 2 diabetes mellitus without complications; I69.351 Hemiplegia and hemiparesis following cerebral infarction affecting right dominant side; I47.2 Ventricular tachycardia; G89.29 Other chronic pain; R60.0 Localized edema; R55 Syncope and collapse; N17.9 Acute kidney failure, unspecified; R41.82 Altered mental status, unspecified
CPT/HCPCS: 36415; 70450-TC; 71045-TC-FY; 76775-TC; 80048; 80053; 81003; 82436; 82550; 82570; 82962; 83735; 84100; 84133; 84300; 84484; 85025; 85610; 85730; 86850; 86900; 86901; 87040; 87086; 93005; 93010; 93306-TC; 93880-TC; 96360; 96372; 97116-GP; 97162-GP; 99285-25; C9803; G0378; U0003; U0005

== ENCOUNTER 2022-04-14 13:57 | Inpatient (IN) | payer OTHER, BC ==
[2022-04-14 14:36] VITALS: BMI 34.4
[2022-04-14 16:21] LABS: BASO % 0.9 % (0-2.0); EOS % 2.3 % (0-4.5); HEMATOCRIT 43.3 % (35.4-49); HEMOGLOBIN 14.3 GM/dL (11.7-16.9); LYMPH % 22.2 % (8-40); MCH 27.4 pg (25.7-33.7); MCHC 33.1 g/dl (32.0-35.9); MEAN CELL VOLUME 82.7 fl (80-96); MEAN PLT VOLUME 8.2 fl (7.5-11.1); NEUT % 65.6 % (42.8-82.8); PLATELET COUNT 230 10^3/uL (134-434); RBC 5.24 M/mm3 (4.00-5.60); RDW 14.1 % (11.9-15.9); WHITE BLOOD COUNT 8.3 K/mm3 (4.0-10.0)
[2022-04-14 16:42] LABS: CALCIUM 8.7 mg/dL (8.5-10.1)
[2022-04-14 16:43] LABS: ALBUMIN 3.1 g/dl (3.4-5.0); BLOOD UREA NITROGEN 21.6 mg/dL (7-18); MAGNESIUM 2.2 mg/dL (1.8-2.4)
[2022-04-14 16:46] LABS: CREATININE 1.1 mg/dL (0.55-1.3)
[2022-04-14 16:47] LABS: TOT PROT 6.4 g/dl (6.4-8.2)
[2022-04-14 16:48] LABS: BILIRUBIN,TOTAL 0.4 mg/dL (0.2-1)
[2022-04-14] MEDS ORDERED: ACETAMINOPHEN 325 MG TABLET (FP) PO PRN (20:32)
[2022-04-15] MEDS ORDERED: AMIODARONE HCL 200 MG TABLET ONE (00:23)
[2022-04-15] MEDS: AMIODARONE HCL 200 MG TABLET PO SCH ×3 (00:28→21:23)
[2022-04-15] MEDS: INSULIN SLIDING SCALE (NOVOLOG) 1 VIAL SQ SCH ×5 (00:28→21:30)
[2022-04-15] MEDS: ENOXAPARIN NA (PORCINE) 40 MG/0.4 ML DISP.SYRIN SQ SCH (10:51)
[2022-04-15] MEDS ORDERED: INSULIN (NOVOLOG) ASPART 100 UNITS/ML 10ML VIAL ONE (11:27)
[2022-04-15] MEDS: TAMSULOSIN HCL 0.4 MG CAP PO SCH (14:14)
[2022-04-15] MEDS: CLOPIDOGREL BISULFATE 75 MG TABLET (FP) PO SCH (14:14)
[2022-04-15] MEDS: LOSARTAN POTASSIUM 25 MG TABLET PO SCH (14:15)
[2022-04-15] MEDS: ASPIRIN 81 MG CHEWABLE TABLETS PO SCH (14:15)
[2022-04-15] MEDS: METOPROLOL TARTRATE 50 MG TABLET (FP) PO SCH ×2 (14:15→21:23)
[2022-04-15] MEDS: FUROSEMIDE 20 MG TABLET (FP) PO SCH (14:15)
[2022-04-15] MEDS: ATORVASTATIN CA 80 MG TABLET (FP) PO SCH (21:23)
[2022-04-16] MEDS: INSULIN SLIDING SCALE (NOVOLOG) 1 VIAL SQ SCH ×4 (06:42→21:30)
[2022-04-16] MEDS: FUROSEMIDE 20 MG TABLET (FP) PO SCH (10:21)
[2022-04-16] MEDS: ASPIRIN 81 MG CHEWABLE TABLETS PO SCH (10:21)
[2022-04-16] MEDS: ENOXAPARIN NA (PORCINE) 40 MG/0.4 ML DISP.SYRIN SQ SCH (10:21)
[2022-04-16] MEDS: CLOPIDOGREL BISULFATE 75 MG TABLET (FP) PO SCH (10:22)
[2022-04-16] MEDS: amLODIPine BESYLATE 10 MG TABLET (FP) PO SCH (10:22)
[2022-04-16] MEDS: LOSARTAN POTASSIUM 25 MG TABLET PO SCH (10:22)
[2022-04-16] MEDS: METOPROLOL TARTRATE 50 MG TABLET (FP) PO SCH (10:22)
[2022-04-16] MEDS: TAMSULOSIN HCL 0.4 MG CAP PO SCH (10:22)
[2022-04-16] MEDS: AMIODARONE HCL 200 MG TABLET PO SCH (10:22)
[2022-04-16 11:31] LABS: BASO % 1.3 % (0-2.0); EOS % 4.7 % (0-4.5); HEMATOCRIT 40.8 % (35.4-49); HEMOGLOBIN 13.6 GM/dL (11.7-16.9); LYMPH % 25.9 % (8-40); MCH 27.7 pg (25.7-33.7); MCHC 33.3 g/dl (32.0-35.9); MEAN CELL VOLUME 83.2 fl (80-96); MEAN PLT VOLUME 8.2 fl (7.5-11.1); MONO % 9.6 % (3.8-10.2); NEUT % 58.5 % (42.8-82.8); PLATELET COUNT 233 10^3/uL (134-434); RBC 4.91 M/mm3 (4.00-5.60); RDW 14.1 % (11.9-15.9); WHITE BLOOD COUNT 7.4 K/mm3 (4.0-10.0)
[2022-04-16 11:57] LABS: BLOOD UREA NITROGEN 24.8 mg/dL (7-18); CALCIUM 8.6 mg/dL (8.5-10.1); MAGNESIUM 2.2 mg/dL (1.8-2.4)
[2022-04-16 12:00] LABS: CREATININE 1.3 mg/dL (0.55-1.3); PHOSPHOROUS 2.9 mg/dL (2.5-4.9)
[2022-04-16 12:02] LABS: BILIRUBIN,TOTAL 0.5 mg/dL (0.2-1); TOT PROT 6.1 g/dl (6.4-8.2)
[2022-04-16] MEDS: ATORVASTATIN CA 80 MG TABLET (FP) PO SCH (21:30)
[2022-04-16] MEDS: SOTALOL HCL 80 MG TABLET (FP) PO SCH (21:30)
[2022-04-17] MEDS: INSULIN SLIDING SCALE (NOVOLOG) 1 VIAL SQ SCH ×4 (06:23→21:11)
[2022-04-17 07:45] LABS: HEMATOCRIT 39.8 % (35.4-49); HEMOGLOBIN 13.3 GM/dL (11.7-16.9); MCH 27.7 pg (25.7-33.7); MCHC 33.4 g/dl (32.0-35.9); MEAN CELL VOLUME 83.1 fl (80-96); MEAN PLT VOLUME 8.6 fl (7.5-11.1); PLATELET COUNT 233 10^3/uL (134-434); RBC 4.79 M/mm3 (4.00-5.60); RDW 14.1 % (11.9-15.9); WHITE BLOOD COUNT 8.7 K/mm3 (4.0-10.0)
[2022-04-17 08:11] LABS: CALCIUM 8.4 mg/dL (8.5-10.1)
[2022-04-17 08:12] LABS: BLOOD UREA NITROGEN 27.9 mg/dL (7-18); MAGNESIUM 2.2 mg/dL (1.8-2.4)
[2022-04-17 08:15] LABS: CREATININE 1.2 mg/dL (0.55-1.3)
[2022-04-17] MEDS: ENOXAPARIN NA (PORCINE) 40 MG/0.4 ML DISP.SYRIN SQ SCH (09:54)
[2022-04-17] MEDS: ASPIRIN 81 MG CHEWABLE TABLETS PO SCH (09:54)
[2022-04-17] MEDS: FUROSEMIDE 20 MG TABLET (FP) PO SCH (09:54)
[2022-04-17] MEDS: TAMSULOSIN HCL 0.4 MG CAP PO SCH (09:54)
[2022-04-17] MEDS: amLODIPine BESYLATE 10 MG TABLET (FP) PO SCH (09:54)
[2022-04-17] MEDS: CLOPIDOGREL BISULFATE 75 MG TABLET (FP) PO SCH (09:54)
[2022-04-17] MEDS: SOTALOL HCL 80 MG TABLET (FP) PO SCH ×2 (09:54→21:11)
[2022-04-17] MEDS: LOSARTAN POTASSIUM 25 MG TABLET PO SCH (09:54)
[2022-04-17] MEDS: ATORVASTATIN CA 80 MG TABLET (FP) PO SCH (21:10)
[2022-04-18] MEDS: INSULIN SLIDING SCALE (NOVOLOG) 1 VIAL SQ SCH ×4 (06:19→21:28)
[2022-04-18 07:46] LABS: HEMATOCRIT 41.8 % (35.4-49); HEMOGLOBIN 13.8 GM/dL (11.7-16.9); MCH 27.4 pg (25.7-33.7); MCHC 33.1 g/dl (32.0-35.9); MEAN CELL VOLUME 82.9 fl (80-96); MEAN PLT VOLUME 8.3 fl (7.5-11.1); PLATELET COUNT 227 10^3/uL (134-434); RBC 5.04 M/mm3 (4.00-5.60); RDW 13.5 % (11.9-15.9); WHITE BLOOD COUNT 7.9 K/mm3 (4.0-10.0)
[2022-04-18 08:05] LABS: CALCIUM 8.1 mg/dL (8.5-10.1)
[2022-04-18 08:09] LABS: CREATININE 1.1 mg/dL (0.55-1.3)
[2022-04-18 08:10] LABS: TOT PROT 5.7 g/dl (6.4-8.2)
[2022-04-18 08:11] LABS: BILIRUBIN,TOTAL 0.5 mg/dL (0.2-1)
[2022-04-18] MEDS: FUROSEMIDE 20 MG TABLET (FP) PO SCH (09:40)
[2022-04-18] MEDS: CLOPIDOGREL BISULFATE 75 MG TABLET (FP) PO SCH (09:40)
[2022-04-18] MEDS: SOTALOL HCL 80 MG TABLET (FP) PO SCH ×2 (09:40→21:21)
[2022-04-18] MEDS: LOSARTAN POTASSIUM 25 MG TABLET PO SCH (09:40)
[2022-04-18] MEDS: TAMSULOSIN HCL 0.4 MG CAP PO SCH (09:40)
[2022-04-18] MEDS: ASPIRIN 81 MG CHEWABLE TABLETS PO SCH (09:40)
[2022-04-18] MEDS: ENOXAPARIN NA (PORCINE) 40 MG/0.4 ML DISP.SYRIN SQ SCH (09:40)
[2022-04-18] MEDS: amLODIPine BESYLATE 10 MG TABLET (FP) PO SCH (09:40)
[2022-04-18] MEDS: BACITRACIN 15 GM TUBE TOPICAL OINTMENT TP SCH ×2 (11:05→21:26)
[2022-04-18] MEDS: ATORVASTATIN CA 80 MG TABLET (FP) PO SCH (21:21)
[2022-04-19] MEDS: INSULIN SLIDING SCALE (NOVOLOG) 1 VIAL SQ SCH ×4 (06:23→22:09)
[2022-04-19 08:15] LABS: HEMATOCRIT 42.5 % (35.4-49); HEMOGLOBIN 14.1 GM/dL (11.7-16.9); MCH 27.5 pg (25.7-33.7); MCHC 33.1 g/dl (32.0-35.9); MEAN CELL VOLUME 83.1 fl (80-96); MEAN PLT VOLUME 8.8 fl (7.5-11.1); PLATELET COUNT 222 10^3/uL (134-434); RBC 5.12 M/mm3 (4.00-5.60); RDW 14.1 % (11.9-15.9); WHITE BLOOD COUNT 7.3 K/mm3 (4.0-10.0)
[2022-04-19 08:30] LABS: CALCIUM 8.9 mg/dL (8.5-10.1)
[2022-04-19 08:31] LABS: BLOOD UREA NITROGEN 24.6 mg/dL (7-18); MAGNESIUM 2.2 mg/dL (1.8-2.4)
[2022-04-19 08:36] LABS: BILIRUBIN,TOTAL 0.5 mg/dL (0.2-1); TOT PROT 5.9 g/dl (6.4-8.2)
[2022-04-19] MEDS: ASPIRIN 81 MG CHEWABLE TABLETS PO SCH (10:03)
[2022-04-19] MEDS: CLOPIDOGREL BISULFATE 75 MG TABLET (FP) PO SCH (10:03)
[2022-04-19] MEDS: SOTALOL HCL 80 MG TABLET (FP) PO SCH ×2 (10:03→22:09)
[2022-04-19] MEDS: FUROSEMIDE 20 MG TABLET (FP) PO SCH (10:03)
[2022-04-19] MEDS: TAMSULOSIN HCL 0.4 MG CAP PO SCH (10:03)
[2022-04-19] MEDS: LOSARTAN POTASSIUM 25 MG TABLET PO SCH (10:03)
[2022-04-19] MEDS: ENOXAPARIN NA (PORCINE) 40 MG/0.4 ML DISP.SYRIN SQ SCH (10:03)
[2022-04-19] MEDS: amLODIPine BESYLATE 10 MG TABLET (FP) PO SCH (10:03)
[2022-04-19] MEDS: BACITRACIN 15 GM TUBE TOPICAL OINTMENT TP SCH ×2 (10:04→22:38)
[2022-04-19] MEDS: ATORVASTATIN CA 80 MG TABLET (FP) PO SCH (22:09)
[2022-04-20] MEDS: INSULIN SLIDING SCALE (NOVOLOG) 1 VIAL SQ SCH ×4 (06:04→21:30)
[2022-04-20 07:58] LABS: HEMATOCRIT 42.7 % (35.4-49); HEMOGLOBIN 14.3 GM/dL (11.7-16.9); MCH 27.9 pg (25.7-33.7); MCHC 33.4 g/dl (32.0-35.9); MEAN CELL VOLUME 83.5 fl (80-96); MEAN PLT VOLUME 8.8 fl (7.5-11.1); PLATELET COUNT 222 10^3/uL (134-434); RBC 5.12 M/mm3 (4.00-5.60); RDW 13.7 % (11.9-15.9); WHITE BLOOD COUNT 6.2 K/mm3 (4.0-10.0)
[2022-04-20 08:25] LABS: BLOOD UREA NITROGEN 27.1 mg/dL (7-18); CALCIUM 8.3 mg/dL (8.5-10.1)
[2022-04-20 08:28] LABS: CREATININE 1.1 mg/dL (0.55-1.3); PHOSPHOROUS 3.7 mg/dL (2.5-4.9)
[2022-04-20] MEDS: ENOXAPARIN NA (PORCINE) 40 MG/0.4 ML DISP.SYRIN SQ SCH (09:51)
[2022-04-20] MEDS: CLOPIDOGREL BISULFATE 75 MG TABLET (FP) PO SCH (09:51)
[2022-04-20] MEDS: amLODIPine BESYLATE 10 MG TABLET (FP) PO SCH (09:51)
[2022-04-20] MEDS: FUROSEMIDE 20 MG TABLET (FP) PO SCH (09:51)
[2022-04-20] MEDS: LOSARTAN POTASSIUM 25 MG TABLET PO SCH (09:51)
[2022-04-20] MEDS: TAMSULOSIN HCL 0.4 MG CAP PO SCH (09:51)
[2022-04-20] MEDS: SOTALOL HCL 80 MG TABLET (FP) PO SCH ×2 (09:51→21:28)
[2022-04-20] MEDS: ASPIRIN 81 MG CHEWABLE TABLETS PO SCH (09:51)
[2022-04-20] MEDS: BACITRACIN 15 GM TUBE TOPICAL OINTMENT TP SCH ×2 (09:51→21:28)
[2022-04-20] MEDS: ATORVASTATIN CA 80 MG TABLET (FP) PO SCH (21:28)
[2022-04-21] MEDS: INSULIN SLIDING SCALE (NOVOLOG) 1 VIAL SQ SCH ×2 (06:30→12:22)
[2022-04-21] MEDS: ASPIRIN 81 MG CHEWABLE TABLETS PO SCH (09:32)
[2022-04-21] MEDS: SOTALOL HCL 80 MG TABLET (FP) PO SCH (09:33)
[2022-04-21] MEDS: ENOXAPARIN NA (PORCINE) 40 MG/0.4 ML DISP.SYRIN SQ SCH (09:33)
[2022-04-21] MEDS: FUROSEMIDE 20 MG TABLET (FP) PO SCH (09:33)
[2022-04-21] MEDS: BACITRACIN 15 GM TUBE TOPICAL OINTMENT TP SCH (09:33)
[2022-04-21] MEDS: LOSARTAN POTASSIUM 25 MG TABLET PO SCH (09:33)
[2022-04-21] MEDS: TAMSULOSIN HCL 0.4 MG CAP PO SCH (09:33)
[2022-04-21] MEDS: CLOPIDOGREL BISULFATE 75 MG TABLET (FP) PO SCH (09:33)
[2022-04-21] MEDS: amLODIPine BESYLATE 10 MG TABLET (FP) PO SCH (09:33)
[2022-04-21] MEDS ORDERED: amLODIPine BESYLATE 10 MG TABLET (FP) PO SCH (10:44)
[2022-04-21] MEDS ORDERED: LOSARTAN POTASSIUM 50 MG TABLET PO SCH (10:45)
[2022-04-21] MEDS ORDERED: amLODIPine BESYLATE 5 MG TABLET (FP) PO SCH (10:47)
[2022-04-21 13:58] VITALS: BP 133/68; PULSE 64; TEMP 97.5
== END 2022-04-21 17:20 | disposition home or self-care (01) | DRG 309 ==
LOC: JER 13:57 → JERBED 16:32 → J4W 04-15 05:28
PROVIDERS: ADMIT Hospitalist; ATTEND Internal Medicine
DX: I47.2 Ventricular tachycardia (principal); I69.351 Hemiplegia and hemiparesis following cerebral infarction affecting right dominant side; I24.8 Other forms of acute ischemic heart disease; I50.22 Chronic systolic (congestive) heart failure; E11.9 Type 2 diabetes mellitus without complications; I25.10 Atherosclerotic heart disease of native coronary artery without angina pectoris; I11.0 Hypertensive heart disease with heart failure; Z95.810 Presence of automatic (implantable) cardiac defibrillator; Z79.4 Long term (current) use of insulin; Z99.3 Dependence on wheelchair; E78.5 Hyperlipidemia, unspecified; R26.89 Other abnormalities of gait and mobility
CPT/HCPCS: 36415; 71045-TC-FY; 80048; 80053; 82962; 83735; 84100; 84443; 84484; 85025; 85027; 93005; 93010; 93306-TC; 97116-GP; 97162-GP; 99285-25; C9803-CS; U0003; U0005

== ENCOUNTER 2022-07-20 14:24 | Emergency (ER) | payer OTHER, BC ==
[2022-07-20 16:29] VITALS: BP 174/80; PULSE 68; RESP 20; TEMP 97.7; BMI 33.7
== END 2022-07-20 18:14 | disposition home or self-care (01) ==
LOC: JER 14:24
DX: R03.0 Elevated blood-pressure reading, without diagnosis of hypertension (principal)
CPT/HCPCS: 99281-25

== ENCOUNTER 2023-11-21 14:36 | Inpatient (IN) | payer OTHER, BC ==
[2023-11-21 15:21] LABS: BASO % 0.8 % (0-2.0); EOS % 3.1 % (0-4.5); HEMOGLOBIN 15.3 GM/dL (11.7-16.9); LYMPH % 30.9 % (8-40); MCH 27.2 pg (25.7-33.7); MCHC 33.3 g/dl (32.0-35.9); MEAN CELL VOLUME 81.7 fl (80-96); MEAN PLT VOLUME 7.6 fl (7.5-11.1); MONO % 9.2 % (3.8-10.2); PLATELET COUNT 250 10^3/uL (134-434); RBC 5.64 M/mm3 (4.00-5.60)
[2023-11-21 15:27] LABS: INR 1.27 (0.83-1.09); PROTHROMBIN TIME (PATIENT) 14.7 SEC (9.7-13.0)
[2023-11-21 15:30] LABS: ACTIVATED PTT 34.8 SECONDS (25.2-36.5)
[2023-11-21 15:41] LABS: POTASSIUM 3.5 mmol/L (3.5-5.1)
[2023-11-21 15:42] LABS: CALCIUM 8.4 mg/dL (8.5-10.1)
[2023-11-21 15:44] LABS: EPI CELLS 0 /uL (0-25.1); HYALINE CASTS 1 /uL (0-3.1); PH,URINE 5.5 (5.0-8.0); URINE APPEARANCE CLEAR; URINE BACTERIA 7770 /uL (0-1359); URINE BILIRUBIN NEGATIVE (NEGATIVE); URINE COLOR YELLOW; URINE GLUCOSE (UA) 1+ (NEGATIVE); URINE KETONE NEGATIVE (NEGATIVE); URINE LEUK ESTERASE 1+ (NEGATIVE); URINE NITRITE NEGATIVE (NEGATIVE); URINE PROTEIN NEGATIVE (NEGATIVE); URINE RBC 15 /uL (0-23.9); URINE WBC 708 /uL (0-25.8)
[2023-11-21 15:44] LABS: ALBUMIN 3.2 g/dl (3.4-5.0); BLOOD UREA NITROGEN 17.1 mg/dL (7-18)
[2023-11-21 15:46] LABS: CREATININE 0.9 mg/dL (0.55-1.3); PHOSPHOROUS 2.6 mg/dL (2.5-4.9)
[2023-11-21 15:48] LABS: BILIRUBIN,TOTAL 0.8 mg/dL (0.2-1); TOT PROT 6.5 g/dl (6.4-8.2)
[2023-11-21] MEDS: LACTATED RINGERS SOLUTION 1000 ML INFUS.BAG IV ONE (19:45)
[2023-11-21] MEDS: INSULIN ASPART SLIDING SCALE (NOVOLOG) 1 VIAL SQ SCH (22:00)
[2023-11-21] MEDS: INSULIN (LEVEMIR) 100 UNITS/ML UNITS SQ SCH (22:13)
[2023-11-22 07:27] LABS: HEMATOCRIT 45.1 % (35.4-49); HEMOGLOBIN 15.5 GM/dL (11.7-16.9); MCH 27.8 pg (25.7-33.7); MCHC 34.4 g/dl (32.0-35.9); MEAN CELL VOLUME 80.9 fl (80-96); MEAN PLT VOLUME 7.9 fl (7.5-11.1); PLATELET COUNT 244 10^3/uL (134-434); RBC 5.57 M/mm3 (4.00-5.60); RDW 14.9 % (11.9-15.9); WHITE BLOOD COUNT 10.5 K/mm3 (4.0-10.0)
[2023-11-22 08:00] LABS: POTASSIUM 3.5 mmol/L (3.5-5.1)
[2023-11-22 08:15] LABS: ALBUMIN 3.2 g/dl (3.4-5.0); BLOOD UREA NITROGEN 19.3 mg/dL (7-18); CALCIUM 8.7 mg/dL (8.5-10.1); MAGNESIUM 2.1 mg/dL (1.8-2.4); PHOSPHOROUS 2.3 mg/dL (2.5-4.9)
[2023-11-22 08:17] LABS: BILIRUBIN,TOTAL 0.6 mg/dL (0.2-1); TOT PROT 6.4 g/dl (6.4-8.2)
[2023-11-22 08:18] LABS: CREATININE 0.9 mg/dL (0.55-1.3)
[2023-11-22] MEDS ORDERED: NAPH,MB-DB/K PH,MBDB POWDER PACKET ONE (10:08)
[2023-11-22] MEDS ORDERED: CEFTRIAXONE 1 GM/50 ML BAG ONE (10:08)
[2023-11-22] MEDS: amLODIPine BESYLATE 5 MG TABLET (FP) PO SCH (10:20)
[2023-11-22] MEDS: TAMSULOSIN HCL 0.4 MG CAP PO SCH (10:20)
[2023-11-22] MEDS: NAPH,MB-DB/K PH,MBDB POWDER PACKET PO ONE (10:20)
[2023-11-22] MEDS: PANTOPRAZOLE 20 MG TABLET PO SCH (10:20)
[2023-11-22] MEDS: ENOXAPARIN NA (PORCINE) 40 MG/0.4 ML DISP.SYRIN SQ SCH (10:20)
[2023-11-22] MEDS: SOTALOL HCL 80 MG TABLET (FP) PO SCH (10:20)
[2023-11-22] MEDS: FUROSEMIDE 20 MG TABLET (FP) PO SCH (10:20)
[2023-11-22] MEDS: LOSARTAN POTASSIUM 50 MG TABLET PO SCH (10:20)
[2023-11-22] MEDS: CLOPIDOGREL BISULFATE 75 MG TABLET (FP) PO SCH (10:20)
[2023-11-22] MEDS: CEFTRIAXONE 1 GM in DEXTROSE 5%-WATER - 50 ML IVPB SCH (10:25)
[2023-11-22] MEDS: LACTATED RINGERS SOLUTION 1,000 ML/1,000 ML INFUS.BAG IV SCH (12:45)
[2023-11-22 17:23] VITALS: BMI 33.1
[2023-11-22] MEDS ORDERED: MELATONIN 5 MG TABLETS PO PRN (17:41)
[2023-11-23] MEDS: amLODIPine BESYLATE 10 MG TABLET (FP) PO SCH (09:01)
[2023-11-23 09:37] LABS: HEMATOCRIT 44.8 % (35.4-49); HEMOGLOBIN 15.7 GM/dL (11.7-16.9); MCH 28.1 pg (25.7-33.7); MEAN CELL VOLUME 80.2 fl (80-96); MEAN PLT VOLUME 7.9 fl (7.5-11.1); PLATELET COUNT 261 10^3/uL (134-434); RBC 5.58 M/mm3 (4.00-5.60); RDW 15.3 % (11.9-15.9); WHITE BLOOD COUNT 9.5 K/mm3 (4.0-10.0)
[2023-11-23 10:13] LABS: POTASSIUM 3.6 mmol/L (3.5-5.1)
[2023-11-23 10:14] LABS: CALCIUM 8.7 mg/dL (8.5-10.1)
[2023-11-23 10:15] LABS: BLOOD UREA NITROGEN 24.2 mg/dL (7-18); MAGNESIUM 1.9 mg/dL (1.8-2.4)
[2023-11-23 10:18] LABS: CREATININE 1.1 mg/dL (0.55-1.3); PHOSPHOROUS 3.2 mg/dL (2.5-4.9)
[2023-11-24 10:03] LABS: HEMATOCRIT 42.2 % (35.4-49); HEMOGLOBIN 14.4 GM/dL (11.7-16.9); MCH 27.7 pg (25.7-33.7); MCHC 34.2 g/dl (32.0-35.9); PLATELET COUNT 281 10^3/uL (134-434); RBC 5.21 M/mm3 (4.00-5.60); RDW 15.6 % (11.9-15.9); WHITE BLOOD COUNT 8.2 K/mm3 (4.0-10.0)
[2023-11-24 10:19] LABS: POTASSIUM 3.6 mmol/L (3.5-5.1)
[2023-11-24 10:32] LABS: BLOOD UREA NITROGEN 34.5 mg/dL (7-18); CALCIUM 8.8 mg/dL (8.5-10.1)
[2023-11-24 10:35] LABS: CREATININE 1.2 mg/dL (0.55-1.3)
[2023-11-24 12:31] LABS: ARTERIAL BLD GAS O2 SATURATION 94.7 % (95-98); ARTERIAL BLOOD GAS BASE EXCESS 0.4 mmol/L (-2-2); ARTERIAL BLOOD GAS pH 7.451 (7.350-7.450)
[2023-11-24 12:35] LABS: ALLENS TEST POSITIVE
[2023-11-25] MEDS: CEPHALEXIN MONOHYDRATE 500 MG CAPSULE (UD) PO SCH (00:59)
[2023-11-25 10:08] LABS: HEMATOCRIT 42.5 % (35.4-49); HEMOGLOBIN 14.4 GM/dL (11.7-16.9); MCH 27.5 pg (25.7-33.7); MCHC 33.9 g/dl (32.0-35.9); MEAN CELL VOLUME 81.2 fl (80-96); PLATELET COUNT 268 10^3/uL (134-434); RBC 5.24 M/mm3 (4.00-5.60); RDW 14.8 % (11.9-15.9)
[2023-11-25 10:24] LABS: POTASSIUM 3.5 mmol/L (3.5-5.1)
[2023-11-25 10:33] LABS: CALCIUM 8.7 mg/dL (8.5-10.1)
[2023-11-25 10:34] LABS: BLOOD UREA NITROGEN 35.1 mg/dL (7-18)
[2023-11-25 11:24] VITALS: RESP 20
[2023-11-25 15:40] VITALS: BP 146/76; PULSE 78; TEMP 98
== END 2023-11-25 17:45 | disposition home or self-care (01) | DRG 689 ==
LOC: JER 14:36 → JERBED 17:40 → OBSVTOIN 11-22 13:59 → J6S 11-22 15:18
PROVIDERS: ADMIT Internal Medicine; ATTEND Internal Medicine
DX: N39.0 Urinary tract infection, site not specified (principal); G93.41 Metabolic encephalopathy; I69.351 Hemiplegia and hemiparesis following cerebral infarction affecting right dominant side; N41.0 Acute prostatitis; K86.1 Other chronic pancreatitis; G82.20 Paraplegia, unspecified; I11.0 Hypertensive heart disease with heart failure; I50.9 Heart failure, unspecified; E11.9 Type 2 diabetes mellitus without complications; E78.5 Hyperlipidemia, unspecified; N40.0 Benign prostatic hyperplasia without lower urinary tract symptoms; I87.2 Venous insufficiency (chronic) (peripheral); I25.10 Atherosclerotic heart disease of native coronary artery without angina pectoris; Z79.4 Long term (current) use of insulin; B96.1 Klebsiella pneumoniae [K. pneumoniae] as the cause of diseases classified elsewhere; F32.A Depression, unspecified
CPT/HCPCS: 0241U-QW; 36415; 36600; 70450-TC; 71045-TC-FY; 74177-TC; 80048; 80053; 80307; 81003; 82140; 82607; 82746; 82803; 82962; 83036; 83735; 84100; 84443; 84484; 85025; 85027; 85610; 85730; 86780; 86850; 86900; 86901; 87086; 87186; 93005; 93010; 97116-GP; 97162-GP; 99285-25; G0378; Q9967

== ENCOUNTER 2024-03-24 17:58 | Inpatient (IN) | payer OTHER, BC ==
[2024-03-24 19:05] LABS: BASO % 1.1 % (0-2.0); HEMATOCRIT 42.1 % (35.4-49); HEMOGLOBIN 14.1 GM/dL (11.7-16.9); LYMPH % 33.1 % (8-40); MCH 27.2 pg (25.7-33.7); MCHC 33.4 g/dl (32.0-35.9); MEAN CELL VOLUME 81.6 fl (80-96); MEAN PLT VOLUME 8.1 fl (7.5-11.1); MONO % 10.2 % (3.8-10.2); NEUT % 47.6 % (42.8-82.8); PLATELET COUNT 223 10^3/uL (134-434); RBC 5.16 M/mm3 (4.00-5.60); RDW 13.8 % (11.9-15.9); WHITE BLOOD COUNT 8.2 K/mm3 (4.0-10.0)
[2024-03-24 19:11] LABS: INR 1.08 (0.83-1.09); PROTHROMBIN TIME (PATIENT) 12.2 SEC (9.7-13.0)
[2024-03-24 19:14] LABS: ACTIVATED PTT 34.2 SECONDS (25.2-36.5)
[2024-03-24] MEDS: SODIUM CHLORIDE 1,000 ML IV SCH (19:44)
[2024-03-24 19:48] LABS: POTASSIUM 4.2 mmol/L (3.5-5.1)
[2024-03-24 19:50] LABS: CALCIUM 8.5 mg/dL (8.5-10.1)
[2024-03-24 19:51] LABS: ALBUMIN 3.1 g/dl (3.4-5.0); BLOOD UREA NITROGEN 22.2 mg/dL (7-18)
[2024-03-24 19:54] LABS: CREATININE 1.1 mg/dL (0.55-1.3)
[2024-03-24 19:55] LABS: BILIRUBIN,TOTAL 0.4 mg/dL (0.2-1); TOT PROT 6.2 g/dl (6.4-8.2)
[2024-03-25 02:44] LABS: PH,URINE 5.5 (5.0-8.0); URINE APPEARANCE CLEAR; URINE BILIRUBIN NEGATIVE (NEGATIVE); URINE COLOR YELLOW; URINE GLUCOSE (UA) NEGATIVE (NEGATIVE); URINE KETONE NEGATIVE (NEGATIVE); URINE LEUK ESTERASE NEGATIVE (NEGATIVE); URINE NITRITE NEGATIVE (NEGATIVE); URINE PROTEIN TRACE (NEGATIVE)
[2024-03-25 06:57] LABS: HEMATOCRIT 41.6 % (35.4-49); HEMOGLOBIN 13.8 GM/dL (11.7-16.9); MCH 27.2 pg (25.7-33.7); MCHC 33.2 g/dl (32.0-35.9); MEAN PLT VOLUME 8.3 fl (7.5-11.1); PLATELET COUNT 220 10^3/uL (134-434); RBC 5.07 M/mm3 (4.00-5.60); RDW 13.6 % (11.9-15.9); WHITE BLOOD COUNT 8.8 K/mm3 (4.0-10.0)
[2024-03-25] MEDS ORDERED: PANTOPRAZOLE 20 MG TABLET PO ONE (07:14)
[2024-03-25] MEDS: PANTOPRAZOLE 20 MG TABLET PO SCH (07:15)
[2024-03-25 07:18] LABS: BLOOD UREA NITROGEN 20.6 mg/dL (7-18); CALCIUM 8.5 mg/dL (8.5-10.1)
[2024-03-25 07:23] LABS: BILIRUBIN,TOTAL 0.5 mg/dL (0.2-1)
[2024-03-25] MEDS ORDERED: INSULIN ASPART SLIDING SCALE (NOVOLOG) 1 VIAL SQ ONE ×3 (07:27→11:50)
[2024-03-25] MEDS: INSULIN ASPART SLIDING SCALE (NOVOLOG) 1 VIAL SQ SCH (07:28)
[2024-03-25] MEDS: TAMSULOSIN HCL 0.4 MG CAP PO SCH (09:38)
[2024-03-25] MEDS ORDERED: TAMSULOSIN HCL 0.4 MG CAP ONE (09:39)
[2024-03-25] MEDS ORDERED: buPROPion HCL 100 MG TABLET ONE (10:51)
[2024-03-25] MEDS ORDERED: FUROSEMIDE 20 MG TABLET (FP) ONE (10:51)
[2024-03-25] MEDS ORDERED: LOSARTAN POTASSIUM 50 MG TABLET ONE (10:51)
[2024-03-25] MEDS ORDERED: amLODIPine BESYLATE 5 MG TABLET (FP) ONE (10:51)
[2024-03-25] MEDS ORDERED: CLOPIDOGREL BISULFATE 75 MG TABLET (FP) ONE (10:52)
[2024-03-25] MEDS: LOSARTAN POTASSIUM 50 MG TABLET PO SCH (10:53)
[2024-03-25] MEDS: CLOPIDOGREL BISULFATE 75 MG TABLET (FP) PO SCH (10:54)
[2024-03-25] MEDS: amLODIPine BESYLATE 5 MG TABLET (FP) PO SCH (10:54)
[2024-03-25] MEDS: FUROSEMIDE 20 MG TABLET (FP) PO SCH (10:54)
[2024-03-25] MEDS: SOTALOL HCL 80 MG TABLET (FP) PO SCH (11:17)
[2024-03-25 11:52] LABS: HIV INTERPRETATION NEGATIVE (NEGATIVE)
[2024-03-25 17:09] VITALS: BMI 32.2
[2024-03-25] MEDS: LOSARTAN POTASSIUM 50 MG TABLET PO ONE (17:28)
[2024-03-25] MEDS: ASPIRIN 81 MG CHEWABLE TABLETS PO SCH (19:04)
[2024-03-25] MEDS: ATORVASTATIN CA 40 MG TABLET (FP) PO SCH (21:06)
[2024-03-25] MEDS: guaiFENesin 200 MG/10 ML 10 ML UNIT-DOSE CUPS PO ONE (22:40)
[2024-03-26] MEDS: LOSARTAN POTASSIUM 50 MG TABLET PO SCH (09:31)
[2024-03-26] MEDS ORDERED: INSULIN ASPART SLIDING SCALE (NOVOLOG) 1 VIAL SQ ONE (12:15)
[2024-03-26] MEDS: FLU VACCINE (FLULAVAL) PF 60 MCG/0.5 ML SYRINGE 2023-2024 IM ONE (12:26)
[2024-03-26] MEDS: RACEPINEPHRINE IH SOL 2.25% 11.25 MG/0.5 ML VIAL NEB ONE (16:54)
[2024-03-27 09:43] LABS: HEMATOCRIT 41.9 % (35.4-49); HEMOGLOBIN 13.9 GM/dL (11.7-16.9); MCH 27.2 pg (25.7-33.7); MCHC 33.1 g/dl (32.0-35.9); MEAN CELL VOLUME 82.3 fl (80-96); MEAN PLT VOLUME 8.4 fl (7.5-11.1); PLATELET COUNT 217 10^3/uL (134-434); RBC 5.09 M/mm3 (4.00-5.60); RDW 13.7 % (11.9-15.9); WHITE BLOOD COUNT 9.9 K/mm3 (4.0-10.0)
[2024-03-27 10:09] LABS: POTASSIUM 3.8 mmol/L (3.5-5.1)
[2024-03-27 10:17] LABS: CALCIUM 8.5 mg/dL (8.5-10.1); CREATININE 1.2 mg/dL (0.55-1.3)
[2024-03-28 07:27] LABS: HEMATOCRIT 41.2 % (35.4-49); HEMOGLOBIN 13.6 GM/dL (11.7-16.9); MCH 27.2 pg (25.7-33.7); MCHC 33.1 g/dl (32.0-35.9); MEAN CELL VOLUME 82.1 fl (80-96); MEAN PLT VOLUME 8.4 fl (7.5-11.1); PLATELET COUNT 203 10^3/uL (134-434); RBC 5.02 M/mm3 (4.00-5.60); RDW 13.8 % (11.9-15.9); WHITE BLOOD COUNT 8.7 K/mm3 (4.0-10.0)
[2024-03-28 07:46] LABS: POTASSIUM 3.6 mmol/L (3.5-5.1)
[2024-03-28 07:49] LABS: ALBUMIN 2.8 g/dl (3.4-5.0); BLOOD UREA NITROGEN 20.4 mg/dL (7-18); CALCIUM 8.6 mg/dL (8.5-10.1)
[2024-03-28 07:50] LABS: MAGNESIUM 1.9 mg/dL (1.8-2.4)
[2024-03-28 07:53] LABS: CREATININE 1.1 mg/dL (0.55-1.3); PHOSPHOROUS 3.4 mg/dL (2.5-4.9)
[2024-03-28 07:54] LABS: BILIRUBIN,TOTAL 0.7 mg/dL (0.2-1)
[2024-03-28] MEDS ORDERED: ATORVASTATIN CA 40 MG TABLET (FP) PO SCH (11:11)
[2024-03-28 15:44] VITALS: BP 148/76; PULSE 81; RESP 20; TEMP 98.6
== END 2024-03-28 16:52 | disposition home or self-care (01) | DRG 65 ==
LOC: JER 17:58 → JERBED 23:06 → J4W 03-25 13:42
PROVIDERS: ADMIT Internal Medicine; ATTEND Internal Medicine
DX: I63.9 Cerebral infarction, unspecified (principal); I69.351 Hemiplegia and hemiparesis following cerebral infarction affecting right dominant side; R29.704 NIHSS score 4; E11.9 Type 2 diabetes mellitus without complications; I69.322 Dysarthria following cerebral infarction; I10 Essential (primary) hypertension; E78.5 Hyperlipidemia, unspecified; N40.0 Benign prostatic hyperplasia without lower urinary tract symptoms; F32.A Depression, unspecified; Z74.01 Bed confinement status; Z95.810 Presence of automatic (implantable) cardiac defibrillator; Z99.3 Dependence on wheelchair
CPT/HCPCS: 36415; 70450-TC; 70496-TC; 70498-TC; 71045-TC-FY; 74230-TC-FY; 80048; 80053; 80061; 81003; 82962; 83036; 83735; 84100; 85025; 85027; 85610; 85730; 86705; 86803; 86850; 86900; 86901; 87340; 87389; 87517; 90686; 92611-GN; 93005; 93010; 93306-TC; 94640; 97116-GP; 97161-GP; 99285-25; G0008; Q9967

== ENCOUNTER 2024-05-28 15:50 | Inpatient (IN) | payer OTHER, BC ==
[2024-05-28 16:05] VITALS: BMI 33.0
[2024-05-28] MEDS ORDERED: LIDOCAINE HCL 2% JELLY 6 ML TP ONE (16:47)
[2024-05-28 17:10] LABS: BASO % 0.9 % (0-2.0); EOS % 4.3 % (0-4.5); HEMATOCRIT 33.4 % (35.4-49); HEMOGLOBIN 11.4 GM/dL (11.7-16.9); MCH 26.9 pg (25.7-33.7); MCHC 34.2 g/dl (32.0-35.9); MEAN CELL VOLUME 78.6 fl (80-96); MEAN PLT VOLUME 7.5 fl (7.5-11.1); MONO % 8.1 % (3.8-10.2); NEUT % 60.7 % (42.8-82.8); PLATELET COUNT 261 10^3/uL (134-434); RBC 4.25 M/mm3 (4.00-5.60); RDW 14.5 % (11.9-15.9); WHITE BLOOD COUNT 9.6 K/mm3 (4.0-10.0)
[2024-05-28 17:16] LABS: INR 1.13 (0.83-1.09); PROTHROMBIN TIME (PATIENT) 12.9 SEC (9.7-13.0)
[2024-05-28 17:19] LABS: ACTIVATED PTT 33.2 SECONDS (25.2-36.5); URINE APPEARANCE TURBID; URINE BILIRUBIN NEGATIVE (NEGATIVE); URINE COLOR RED; URINE GLUCOSE (UA) 2+ (NEGATIVE); URINE KETONE NEGATIVE (NEGATIVE); URINE NITRITE NEGATIVE (NEGATIVE); URINE PROTEIN 1+ (NEGATIVE)
[2024-05-28 17:20] LABS: URINE LEUK ESTERASE 3+ (NEGATIVE)
[2024-05-28 17:45] LABS: POTASSIUM 3.5 mmol/L (3.5-5.1)
[2024-05-28 17:47] LABS: CALCIUM 8.2 mg/dL (8.5-10.1)
[2024-05-28 17:48] LABS: ALBUMIN 2.6 g/dl (3.4-5.0); BLOOD UREA NITROGEN 19.4 mg/dL (7-18)
[2024-05-28 17:51] LABS: CREATININE 1.3 mg/dL (0.55-1.3)
[2024-05-28 17:52] LABS: BILIRUBIN,TOTAL 0.4 mg/dL (0.2-1)
[2024-05-28 17:53] LABS: TOT PROT 5.9 g/dl (6.4-8.2)
[2024-05-28] MEDS ORDERED: morphine SULFATE 4 MG/ML VIAL ONE (19:22)
[2024-05-28] MEDS ORDERED: KETOROLAC TROMETHAMINE 30 MG/1 ML VIAL ONE (19:23)
[2024-05-28] MEDS: KETOROLAC TROMETHAMINE 30 MG/1 ML VIAL IVPUSH ONE (19:32)
[2024-05-28] MEDS ORDERED: TAMSULOSIN HCL 0.4 MG CAP ONE (19:45)
[2024-05-28] MEDS: SODIUM CHLORIDE 1,000 ML IV STA (19:52)
[2024-05-28] MEDS: FINASTERIDE 5 MG TABLET (FP) PO SCH (20:23)
[2024-05-28] MEDS: OXYBUTYNIN CHLORIDE 5 MG TABLET PO ONE (20:23)
[2024-05-28] MEDS: TAMSULOSIN HCL 0.4 MG CAP PO ONE (20:23)
[2024-05-28] MEDS ORDERED: ACETAMINOPHEN 1000 MG/100 ML BAG IVPB PRN (22:28)
[2024-05-28] MEDS ORDERED: INSULIN ASPART SLIDING SCALE (NOVOLOG) 1 VIAL SQ ONE (22:58)
[2024-05-28] MEDS: INSULIN ASPART SLIDING SCALE (NOVOLOG) 1 VIAL SQ SCH (23:04)
[2024-05-29 08:59] LABS: BASO % 0.9 % (0-2.0); EOS % 6.3 % (0-4.5); HEMATOCRIT 28.6 % (35.4-49); HEMOGLOBIN 9.9 GM/dL (11.7-16.9); LYMPH % 31.1 % (8-40); MCH 26.9 pg (25.7-33.7); MCHC 34.6 g/dl (32.0-35.9); MEAN CELL VOLUME 77.6 fl (80-96); MEAN PLT VOLUME 8.1 fl (7.5-11.1); MONO % 9.6 % (3.8-10.2); NEUT % 52.1 % (42.8-82.8); PLATELET COUNT 226 10^3/uL (134-434); RBC 3.68 M/mm3 (4.00-5.60); RDW 14.6 % (11.9-15.9); WHITE BLOOD COUNT 9.1 K/mm3 (4.0-10.0)
[2024-05-29 09:14] LABS: POTASSIUM 3.5 mmol/L (3.5-5.1)
[2024-05-29 09:16] LABS: CALCIUM 8.1 mg/dL (8.5-10.1)
[2024-05-29 09:17] LABS: ALBUMIN 2.4 g/dl (3.4-5.0); BLOOD UREA NITROGEN 19.6 mg/dL (7-18); MAGNESIUM 1.6 mg/dL (1.8-2.4)
[2024-05-29 09:20] LABS: CREATININE 1.1 mg/dL (0.55-1.3); PHOSPHOROUS 2.7 mg/dL (2.5-4.9)
[2024-05-29 09:21] LABS: BILIRUBIN,TOTAL 0.4 mg/dL (0.2-1); TOT PROT 5.3 g/dl (6.4-8.2)
[2024-05-29] MEDS: CEFTRIAXONE 1 GM in DEXTROSE 5%-WATER - 50 ML IVPB SCH (11:11)
[2024-05-29] MEDS: PANTOPRAZOLE 20 MG TABLET PO SCH (11:16)
[2024-05-29] MEDS: FUROSEMIDE 20 MG TABLET (FP) PO SCH (11:20)
[2024-05-29] MEDS: TAMSULOSIN HCL 0.4 MG CAP PO SCH (11:20)
[2024-05-29] MEDS: ATORVASTATIN CA 80 MG TABLET (FP) PO SCH (21:28)
[2024-05-30 08:04] LABS: BASO % 0.8 % (0-2.0); EOS % 7.7 % (0-4.5); HEMATOCRIT 30.3 % (35.4-49); HEMOGLOBIN 10.2 GM/dL (11.7-16.9); LYMPH % 31.4 % (8-40); MCH 26.6 pg (25.7-33.7); MCHC 33.6 g/dl (32.0-35.9); MEAN CELL VOLUME 79.2 fl (80-96); MEAN PLT VOLUME 7.7 fl (7.5-11.1); MONO % 8.6 % (3.8-10.2); NEUT % 51.5 % (42.8-82.8); PLATELET COUNT 246 10^3/uL (134-434); RBC 3.82 M/mm3 (4.00-5.60); RDW 14.7 % (11.9-15.9); WHITE BLOOD COUNT 8.2 K/mm3 (4.0-10.0)
[2024-05-30 08:17] LABS: INR 1.15 (0.83-1.09); PROTHROMBIN TIME (PATIENT) 13.2 SEC (9.7-13.0)
[2024-05-30 08:25] LABS: POTASSIUM 3.4 mmol/L (3.5-5.1)
[2024-05-30 08:32] LABS: ALBUMIN 2.5 g/dl (3.4-5.0); CALCIUM 8.6 mg/dL (8.5-10.1)
[2024-05-30 08:33] LABS: BLOOD UREA NITROGEN 18.4 mg/dL (7-18); MAGNESIUM 1.6 mg/dL (1.8-2.4)
[2024-05-30 08:37] LABS: BILIRUBIN,TOTAL 0.6 mg/dL (0.2-1); TOT PROT 5.5 g/dl (6.4-8.2)
[2024-05-30] MEDS: ASPIRIN COATED 81 MG TABLET.EC PO SCH (10:56)
[2024-05-31 08:31] LABS: BASO % 0.9 % (0-2.0); EOS % 4.1 % (0-4.5); HEMATOCRIT 29.2 % (35.4-49); LYMPH % 34.4 % (8-40); MCHC 34.1 g/dl (32.0-35.9); MEAN CELL VOLUME 79.2 fl (80-96); MEAN PLT VOLUME 7.4 fl (7.5-11.1); MONO % 9.4 % (3.8-10.2); NEUT % 51.2 % (42.8-82.8); PLATELET COUNT 254 10^3/uL (134-434); RBC 3.69 M/mm3 (4.00-5.60); RDW 14.4 % (11.9-15.9)
[2024-05-31 09:13] LABS: POTASSIUM 3.4 mmol/L (3.5-5.1)
[2024-05-31 09:17] LABS: ALBUMIN 2.5 g/dl (3.4-5.0); BLOOD UREA NITROGEN 17.4 mg/dL (7-18); CALCIUM 8.7 mg/dL (8.5-10.1); MAGNESIUM 1.9 mg/dL (1.8-2.4)
[2024-05-31 09:20] LABS: CREATININE 1.1 mg/dL (0.55-1.3)
[2024-05-31 09:22] LABS: BILIRUBIN,TOTAL 0.4 mg/dL (0.2-1); TOT PROT 5.5 g/dl (6.4-8.2)
[2024-06-01] MEDS ORDERED: LIDOCAINE HCL/PF 2% SDV 5ML VIAL ONE (07:17)
[2024-06-01] MEDS ORDERED: PROPOFOL 20 ML ONE (07:18)
[2024-06-01] MEDS ORDERED: MIDAZOLAM HCL 2 MG/2 ML SINGLE DOSE VIAL ONE (07:18)
[2024-06-01] MEDS: ceFAZolin SODIUM 1 GM VIAL IVPB ONE (08:00)
[2024-06-01] MEDS ORDERED: DEXAMETHASONE SOD PHOSPHATE 4 MG/1 ML VIAL ONE (08:07)
[2024-06-01] MEDS ORDERED: ceFAZolin SODIUM 1 GM VIAL ONE (08:07)
[2024-06-01] MEDS ORDERED: PROMETHAZINE HCL 25 MG/1 ML VIAL IVPB PRN ×2 (08:17→09:04)
[2024-06-01] MEDS ORDERED: ONDANSETRON 4 MG/2 ML VIAL IVPUSH PRN ×2 (08:17→09:04)
[2024-06-01] MEDS ORDERED: KETOROLAC TROMETHAMINE 30 MG/1 ML VIAL ONE (08:37)
[2024-06-01] MEDS ORDERED: ONDANSETRON 4 MG/2 ML VIAL ONE (08:37)
[2024-06-01] MEDS ORDERED: LACTATED RINGERS SOLUTION 1,000 ML IV SCH (09:04)
[2024-06-01] MEDS: ACETAMINOPHEN 1000 MG/100 ML BAG IVPB ONE ×2 (09:13→12:56)
[2024-06-01] MEDS: ACETAMINOPHEN INJECTION 100 ML IVPB ONE (09:13)
[2024-06-01 09:56] LABS: BASO % 0.8 % (0-2.0); EOS % 2.5 % (0-4.5); LYMPH % 30.8 % (8-40); MCH 26.8 pg (25.7-33.7); MCHC 34.3 g/dl (32.0-35.9); MEAN CELL VOLUME 78.2 fl (80-96); MEAN PLT VOLUME 7.6 fl (7.5-11.1); MONO % 7.9 % (3.8-10.2); PLATELET COUNT 297 10^3/uL (134-434); RBC 4.09 M/mm3 (4.00-5.60); RDW 14.7 % (11.9-15.9); WHITE BLOOD COUNT 10.3 K/mm3 (4.0-10.0)
[2024-06-01 10:11] LABS: POTASSIUM 3.5 mmol/L (3.5-5.1)
[2024-06-01 10:15] LABS: ALBUMIN 2.7 g/dl (3.4-5.0); BLOOD UREA NITROGEN 18.4 mg/dL (7-18); CALCIUM 8.5 mg/dL (8.5-10.1); MAGNESIUM 1.9 mg/dL (1.8-2.4)
[2024-06-01 10:20] LABS: BILIRUBIN,TOTAL 0.5 mg/dL (0.2-1)
[2024-06-01] MEDS: FINASTERIDE 5 MG TABLET (FP) PO SCH (12:03)
[2024-06-01] MEDS: PANTOPRAZOLE 20 MG TABLET PO SCH (12:03)
[2024-06-01] MEDS: FUROSEMIDE 20 MG TABLET (FP) PO SCH (12:03)
[2024-06-01] MEDS: CEFTRIAXONE 1 GM in DEXTROSE 5%-WATER - 50 ML IVPB SCH (12:03)
[2024-06-01] MEDS: INSULIN ASPART SLIDING SCALE (NOVOLOG) 1 VIAL SQ SCH (12:06)
[2024-06-01] MEDS: LACTATED RINGERS SOLUTION 1,000 ML IV SCH (12:56)
[2024-06-01] MEDS: TAMSULOSIN HCL 0.4 MG CAP PO ONE (12:56)
[2024-06-01] MEDS: ATORVASTATIN CA 80 MG TABLET (FP) PO SCH (22:24)
[2024-06-02 08:38] LABS: BASO % 0.4 % (0-2.0); EOS % 0.1 % (0-4.5); HEMATOCRIT 29.6 % (35.4-49); HEMOGLOBIN 9.8 GM/dL (11.7-16.9); LYMPH % 18.5 % (8-40); MCH 26.1 pg (25.7-33.7); MEAN CELL VOLUME 79.2 fl (80-96); MEAN PLT VOLUME 7.4 fl (7.5-11.1); MONO % 7.3 % (3.8-10.2); NEUT % 73.7 % (42.8-82.8); PLATELET COUNT 289 10^3/uL (134-434); RBC 3.74 M/mm3 (4.00-5.60); RDW 14.8 % (11.9-15.9)
[2024-06-02 09:02] LABS: POTASSIUM 3.6 mmol/L (3.5-5.1)
[2024-06-02 09:08] LABS: ALBUMIN 2.6 g/dl (3.4-5.0); CALCIUM 8.5 mg/dL (8.5-10.1)
[2024-06-02 09:09] LABS: MAGNESIUM 1.9 mg/dL (1.8-2.4)
[2024-06-02 09:12] LABS: BILIRUBIN,TOTAL 0.3 mg/dL (0.2-1); CREATININE 1.2 mg/dL (0.55-1.3); TOT PROT 5.6 g/dl (6.4-8.2)
[2024-06-02] MEDS: TAMSULOSIN HCL 0.4 MG CAP PO SCH (10:39)
[2024-06-03 06:56] LABS: BASO % 0.7 % (0-2.0); EOS % 2.1 % (0-4.5); HEMATOCRIT 27.5 % (35.4-49); HEMOGLOBIN 9.3 GM/dL (11.7-16.9); LYMPH % 30.8 % (8-40); MCH 27.1 pg (25.7-33.7); MCHC 33.8 g/dl (32.0-35.9); MEAN PLT VOLUME 7.7 fl (7.5-11.1); MONO % 7.2 % (3.8-10.2); NEUT % 59.2 % (42.8-82.8); PLATELET COUNT 260 10^3/uL (134-434); RBC 3.44 M/mm3 (4.00-5.60); RDW 14.8 % (11.9-15.9)
[2024-06-03 07:09] LABS: POTASSIUM 3.5 mmol/L (3.5-5.1)
[2024-06-03 07:12] LABS: ALBUMIN 2.4 g/dl (3.4-5.0); BLOOD UREA NITROGEN 23.3 mg/dL (7-18); CALCIUM 8.2 mg/dL (8.5-10.1); MAGNESIUM 1.8 mg/dL (1.8-2.4)
[2024-06-03 07:16] LABS: CREATININE 1.1 mg/dL (0.55-1.3)
[2024-06-03 07:17] LABS: BILIRUBIN,TOTAL 0.2 mg/dL (0.2-1); TOT PROT 5.2 g/dl (6.4-8.2)
[2024-06-03] MEDS: ACETAMINOPHEN 325 MG TABLET (FP) PO PRN (13:13)
[2024-06-03] MEDS: PHENAZOPYRIDINE HCL 100 MG TABLET (FP) PO SCH (17:39)
[2024-06-04 07:26] VITALS: RESP 18
[2024-06-04 08:55] LABS: BASO % 0.6 % (0-2.0); EOS % 1.6 % (0-4.5); HEMATOCRIT 32.6 % (35.4-49); HEMOGLOBIN 10.9 GM/dL (11.7-16.9); LYMPH % 17.6 % (8-40); MCH 26.6 pg (25.7-33.7); MCHC 33.3 g/dl (32.0-35.9); MEAN CELL VOLUME 79.8 fl (80-96); MEAN PLT VOLUME 7.7 fl (7.5-11.1); MONO % 9.3 % (3.8-10.2); NEUT % 70.9 % (42.8-82.8); PLATELET COUNT 332 10^3/uL (134-434); RBC 4.09 M/mm3 (4.00-5.60); RDW 15.1 % (11.9-15.9); WHITE BLOOD COUNT 13.8 K/mm3 (4.0-10.0)
[2024-06-04 09:12] LABS: POTASSIUM 3.6 mmol/L (3.5-5.1)
[2024-06-04 09:16] LABS: CALCIUM 8.7 mg/dL (8.5-10.1)
[2024-06-04 09:17] LABS: ALBUMIN 2.9 g/dl (3.4-5.0); MAGNESIUM 1.8 mg/dL (1.8-2.4)
[2024-06-04 09:20] LABS: CREATININE 1.3 mg/dL (0.55-1.3)
[2024-06-04 09:21] LABS: BILIRUBIN,TOTAL 0.4 mg/dL (0.2-1)
[2024-06-05 09:16] LABS: HEMATOCRIT 31.1 % (35.4-49); HEMOGLOBIN 10.5 GM/dL (11.7-16.9); MEAN CELL VOLUME 79.5 fl (80-96); RBC 3.91 M/mm3 (4.00-5.60); WHITE BLOOD COUNT 12.7 K/mm3 (4.0-10.0)
[2024-06-05 09:17] LABS: BASO % 0.8 % (0-2.0); EOS % 4.2 % (0-4.5); MCH 26.8 pg (25.7-33.7); MCHC 33.7 g/dl (32.0-35.9); MEAN PLT VOLUME 7.8 fl (7.5-11.1); MONO % 8.9 % (3.8-10.2); NEUT % 66.1 % (42.8-82.8); PLATELET COUNT 303 10^3/uL (134-434); RDW 15.3 % (11.9-15.9)
[2024-06-05 09:33] LABS: POTASSIUM 3.4 mmol/L (3.5-5.1)
[2024-06-05 09:34] LABS: CALCIUM 8.7 mg/dL (8.5-10.1)
[2024-06-05 09:36] LABS: ALBUMIN 2.6 g/dl (3.4-5.0); BLOOD UREA NITROGEN 27.4 mg/dL (7-18)
[2024-06-05 09:39] LABS: CREATININE 1.6 mg/dL (0.55-1.3)
[2024-06-05 09:40] LABS: BILIRUBIN,TOTAL 0.6 mg/dL (0.2-1); TOT PROT 5.7 g/dl (6.4-8.2)
[2024-06-06 09:19] LABS: POTASSIUM 3.3 mmol/L (3.5-5.1)
[2024-06-06 09:29] LABS: BLOOD UREA NITROGEN 28.4 mg/dL (7-18); CALCIUM 8.5 mg/dL (8.5-10.1)
[2024-06-06 09:32] LABS: CREATININE 1.7 mg/dL (0.55-1.3)
[2024-06-06] MEDS: POTASSIUM CHLORIDE ORAL LIQUID 20 MEQ/15 ML PO ONE (10:10)
[2024-06-06] MEDS: ACETAMINOPHEN 1000 MG/100 ML BAG IVPB ONE (16:49)
[2024-06-07 08:36] LABS: EOS % 5.3 % (0-4.5); HEMATOCRIT 30.5 % (35.4-49); HEMOGLOBIN 10.3 GM/dL (11.7-16.9); LYMPH % 25.4 % (8-40); MCHC 33.9 g/dl (32.0-35.9); MEAN CELL VOLUME 79.5 fl (80-96); MEAN PLT VOLUME 7.8 fl (7.5-11.1); MONO % 7.9 % (3.8-10.2); NEUT % 60.4 % (42.8-82.8); PLATELET COUNT 315 10^3/uL (134-434); RBC 3.83 M/mm3 (4.00-5.60); WHITE BLOOD COUNT 8.5 K/mm3 (4.0-10.0)
[2024-06-07 08:52] LABS: POTASSIUM 3.2 mmol/L (3.5-5.1)
[2024-06-07 08:55] LABS: CALCIUM 8.1 mg/dL (8.5-10.1)
[2024-06-07 08:56] LABS: BLOOD UREA NITROGEN 23.1 mg/dL (7-18)
[2024-06-07 08:59] LABS: CREATININE 1.2 mg/dL (0.55-1.3)
[2024-06-07] MEDS: POTASSIUM CHLORIDE ORAL LIQUID 20 MEQ/15 ML PO ONE (12:42)
[2024-06-07 14:39] VITALS: BP 152/70; PULSE 91; TEMP 98.4
[2024-06-08] MEDS ORDERED: POTASSIUM CHLORIDE TABS 20 MEQ TABLET.ER (FP) PO SCH (10:00)
== END 2024-06-07 16:16 | disposition home or self-care (01) | DRG 713 ==
LOC: JER 15:50 → JERBED 20:09 → J7W 05-29 00:45
PROVIDERS: ADMIT Internal Medicine; ATTEND Nurse Practitioner
PROC: 0T9B80Z Drainage of Bladder with Drainage Device, Via Natural or Artificial Opening Endoscopic (ICD-10-PCS; 2024-06-01)
PROC: 0VT08ZZ Resection of Prostate, Via Natural or Artificial Opening Endoscopic (ICD-10-PCS; principal; 2024-06-01 07:30)
PROC: 0TCB8ZZ Extirpation of Matter from Bladder, Via Natural or Artificial Opening Endoscopic (ICD-10-PCS; 2024-06-01 07:30)
DX: N40.1 Benign prostatic hyperplasia with lower urinary tract symptoms (principal); R53.2 Functional quadriplegia; I69.351 Hemiplegia and hemiparesis following cerebral infarction affecting right dominant side; N17.9 Acute kidney failure, unspecified; I50.32 Chronic diastolic (congestive) heart failure; I25.10 Atherosclerotic heart disease of native coronary artery without angina pectoris; I48.91 Unspecified atrial fibrillation; I11.0 Hypertensive heart disease with heart failure; R31.0 Gross hematuria; E78.5 Hyperlipidemia, unspecified; N32.89 Other specified disorders of bladder; E87.6 Hypokalemia; I44.0 Atrioventricular block, first degree; E11.65 Type 2 diabetes mellitus with hyperglycemia; Z95.0 Presence of cardiac pacemaker; Z74.01 Bed confinement status
CPT/HCPCS: 36415; 74176-TC; 80048; 80053; 81003; 81015; 82962; 83036; 83735; 84100; 85025; 85610; 85730; 86850; 86900; 86901; 87086; 88305-TC; 93005; 93010; 94760; 99285-25; J0131

== ENCOUNTER 2025-03-02 09:28 | Observation (INO) | payer OTHER, BC ==
[2025-03-02 10:11] LABS: ABSOLUTE IMMATURE GRANULOCYTES 0.03 x10^3/uL (0.0-0.031); BASOPHILS # 0.09 x10^3/uL (0.01-0.08); EOSINOPHIL % 5.1 % (0.8-7.0); EOSINOPHILS # 0.47 x10^3/uL (0.04-0.54); HEMATOCRIT 39.1 % (40.1-51.0); MCHC 30.7 g/dl (32.3-36.5); MEAN CELL VOLUME 75.6 fl (79.0-92.2); MEAN PLT VOLUME 9.6 fl (9.4-12.4); MONOCYTE # 0.82 x10^3/uL (0.30-0.82); MONOCYTE % 8.9 % (5.3-12.2); PLATELET COUNT 288 x10^3/uL (163-337); RDW 16.5 % (12.2-16.6)
[2025-03-02] MEDS: SODIUM CHLORIDE 0.9% 500 ML INFUS.BAG IV ONE (10:15)
[2025-03-02 10:45] LABS: POTASSIUM 4.1 mmol/L (3.5-5.1)
[2025-03-02 10:47] LABS: BLOOD UREA NITROGEN 22.3 mg/dL (7-18); CALCIUM 9.4 mg/dL (8.5-10.1); MAGNESIUM 1.9 mg/dL (1.8-2.4)
[2025-03-02 10:50] LABS: PHOSPHOROUS 3.1 mg/dL (2.5-4.9)
[2025-03-02 10:52] LABS: BILIRUBIN,TOTAL 0.4 mg/dL (0.2-1); TOT PROT 6.4 g/dl (6.4-8.2)
[2025-03-02 10:53] LABS: CREATININE 1.1 mg/dL (0.55-1.3)
[2025-03-02 11:50] LABS: EPI CELLS 33 /uL (0-25.1); HYALINE CASTS 2 /uL (0-3.1); PH,URINE 5.5 (5.0-8.0); URINE APPEARANCE CLEAR; URINE BACTERIA 6 /uL (0-1359); URINE BILIRUBIN NEGATIVE (NEGATIVE); URINE COLOR YELLOW; URINE GLUCOSE (UA) NEGATIVE (NEGATIVE); URINE KETONE TRACE (NEGATIVE); URINE LEUK ESTERASE TRACE (NEGATIVE); URINE NITRITE NEGATIVE (NEGATIVE); URINE PROTEIN NEGATIVE (NEGATIVE); URINE RBC 90 /uL (0-23.9); URINE UROBILINOGEN 0.2 mg/dL (0.2-1.0); URINE WBC 38 /uL (0-25.8)
[2025-03-02] MEDS: LACTATED RINGERS SOLUTION 1000 ML INFUS.BAG IV ONE (12:39)
[2025-03-02] MEDS ORDERED: CEFTRIAXONE 1 G/50 ML PREMIX 50 ML IVPB ONE (12:46)
[2025-03-02] MEDS ORDERED: amLODIPine BESYLATE 5 MG TABLET (FP) ONE (16:42)
[2025-03-02] MEDS ORDERED: PANTOPRAZOLE 20 MG TABLET PO ONE (16:42)
[2025-03-02] MEDS ORDERED: LOSARTAN POTASSIUM 50 MG TABLET ONE (16:43)
[2025-03-02] MEDS ORDERED: CLOPIDOGREL BISULFATE 75 MG TABLET (FP) ONE (16:43)
[2025-03-02] MEDS: CLOPIDOGREL BISULFATE 75 MG TABLET (FP) PO SCH (16:48)
[2025-03-02] MEDS: LOSARTAN POTASSIUM 50 MG TABLET PO SCH (16:48)
[2025-03-02] MEDS: amLODIPine BESYLATE 5 MG TABLET (FP) PO SCH (16:48)
[2025-03-02] MEDS: PANTOPRAZOLE 20 MG TABLET PO SCH (16:48)
[2025-03-02 18:29] VITALS: BMI 33.1
[2025-03-02] MEDS: ATORVASTATIN CA 80 MG TABLET (FP) PO SCH (21:23)
[2025-03-02] MEDS: SOTALOL HCL 80 MG TABLET (FP) PO SCH (21:23)
[2025-03-02] MEDS: HEPARIN NA (PORCINE) 5,000 UNITS/ML 1ML VIAL SQ SCH (21:23)
[2025-03-03 02:18] VITALS: RESP 18
[2025-03-03 07:38] LABS: ABSOLUTE IMMATURE GRANULOCYTES 0.02 x10^3/uL (0.0-0.031); BASOPHILS # 0.09 x10^3/uL (0.01-0.08); EOSINOPHIL % 6.3 % (0.8-7.0); EOSINOPHILS # 0.59 x10^3/uL (0.04-0.54); HEMATOCRIT 40.1 % (40.1-51.0); HEMOGLOBIN 12.2 g/dL (13.7-17.5); MCHC 30.4 g/dl (32.3-36.5); MEAN CELL VOLUME 75.5 fl (79.0-92.2); MONOCYTE # 0.85 x10^3/uL (0.30-0.82); MONOCYTE % 9.1 % (5.3-12.2); PLATELET COUNT 279 x10^3/uL (163-337); RDW 16.4 % (12.2-16.6)
[2025-03-03 08:21] LABS: POTASSIUM 4.3 mmol/L (3.5-5.1)
[2025-03-03 08:32] LABS: CALCIUM 9.5 mg/dL (8.5-10.1)
[2025-03-03 08:33] LABS: BLOOD UREA NITROGEN 17.6 mg/dL (7-18)
[2025-03-03] MEDS: TAMSULOSIN HCL 0.4 MG CAP PO SCH (08:37)
[2025-03-03 09:59] VITALS: TEMP 97.8
[2025-03-03] MEDS: FUROSEMIDE 20 MG TABLET (FP) PO SCH (09:59)
[2025-03-03] MEDS: CEFTRIAXONE 1 G/50 ML PREMIX 50 ML IVPB SCH (10:00)
[2025-03-03] MEDS: ASPIRIN COATED 81 MG TABLET.EC PO SCH (10:00)
[2025-03-03 16:08] VITALS: BP 130/74; PULSE 80
== END 2025-03-03 17:00 | disposition home or self-care (01) ==
LOC: JER 09:28 → JERBED 14:06 → J4W 17:16
PROVIDERS: ADMIT Internal Medicine; ATTEND Internal Medicine
PROC: 3E033GC Introduction of Other Therapeutic Substance into Peripheral Vein, Percutaneous Approach (ICD-10-PCS; principal; 2025-03-02)
PROC: 3E03329 Introduction of Other Anti-infective into Peripheral Vein, Percutaneous Approach (ICD-10-PCS; 2025-03-02)
PROC: 3E023GC Introduction of Other Therapeutic Substance into Muscle, Percutaneous Approach (ICD-10-PCS; 2025-03-02)
PROC: 3E0337Z Introduction of Electrolytic and Water Balance Substance into Peripheral Vein, Percutaneous Approach (ICD-10-PCS; 2025-03-02)
DX: G93.41 Metabolic encephalopathy (principal); E86.0 Dehydration; N39.0 Urinary tract infection, site not specified; I48.91 Unspecified atrial fibrillation; I25.2 Old myocardial infarction; E11.9 Type 2 diabetes mellitus without complications; I10 Essential (primary) hypertension; I69.351 Hemiplegia and hemiparesis following cerebral infarction affecting right dominant side; E78.5 Hyperlipidemia, unspecified; N40.0 Benign prostatic hyperplasia without lower urinary tract symptoms; Z95.810 Presence of automatic (implantable) cardiac defibrillator
CPT/HCPCS: 0241U-QW; 36415; 70450-TC; 71045-TC-FY; 80048; 80053; 81003; 82962; 83735; 84100; 84484; 85025; 87086; 93005; 93010; 96365; 96372; 96375; 99285-25; G0378; J1644